=== PATIENT | male | born 1970 | race African-American/Black ===

== ENCOUNTER 2017-05-20 13:25 | Inpatient (IN) | payer OTHER ==
[2017-05-20 14:44] VITALS: BMI 20.7
--- NOTE | 2017-05-20 16:53 | HP ---
COWS - Scale Resting Pulse: 2= [place] 101-120 Sweatin= Chills/Flushing Restless Observation: 3= Extraneous Movement Pupil Size: 0= Normal to Room Light Bone or Joint Aches: 2= Severe Diffuse Aches Runny Nose/ Eye Tearin= Nasal Congestion GI Upset > 30mins: 2= Nausea/Diarrhea Tremor Observation: 2= Slight Tremor Visible Yawning Observation: 1= 1-2x During Session Anxiety or Irritability: 2=Irritable/Anxious Goose Flesh Skin: 0=Smooth Skin COWS Score: 16 Admission [facility] Chief Complaint: withdrawal sx Allergies/Adverse Reactions: Allergies Allergy/AdvReac Type Severity Reaction Status Date / Time lactose Allergy Intermediate Verified 05/20/17 15:09 History of Present Illness: 46 YEARS OLD MALE WITH LONG HISTORY OF OPIATE NICOTINE COCAINE DEPENDENCE HAS HIV AND DEPRESSION IS ADMITTED TO DETOX Exam Limitations: No Limitations - Ebola screening Have you traveled outside of the country in the last 21 days: No Have you had contact with anyone from an Ebola affected area: No Have you been sick,other than usual withdrawal symptoms: No Do you have a fever: No - Review of Systems Constitutional: Loss of Appetite, Changes in sleep, Unintentional Wgt. Loss, Unexplained wgt Loss EENT: reports: Dental Problems (MULTIPLE TEETH MISSING) Respiratory: reports: No Symptoms reported Cardiac: reports: No Symptoms Reported GI: reports: Nausea, Poor Appetite, Poor Fluid Intake, Abdominal cramping : reports: No Symptoms Reported Musculoskeletal: reports: Back Pain, Joint Pain, Muscle Pain, Neck Pain Integumentary: reports: No Symptoms Reported Neuro: reports: Tremors Endocrine: reports: No Symptoms Reported Hematology: reports: No Symptoms Reported Psychiatric: reports: Judgement Intact, Orientated x3, Anxious, Depressed Other Systems: Reviewed and Negative Patient History - Patient Medical History Hx Anemia: No Hx Asthma: No Hx Chronic Obstructive Pulmonary Disease (COPD): No Hx Cancer: No Hx Cardiac Disorders: Yes (ASD repair 1980) Hx Congestive Heart Failure: No Hx Hypertension: No Hx Hypercholesterolemia: No Hx Pacemaker: No HX Cerebrovascular Accident: No Hx Seizures: No Hx Dementia: No Hx Diabetes: No Hx Gastrointestinal Disorders: No Hx Liver Disease: No Hx Genitourinary Disorders: No Hx Sexually Transmitted Disorders: No Hx Renal Disease (ESRD): No Hx Thyroid Disease: No (2003) Hx Human Immunodeficiency Virus (HIV): Yes Hx Hepatitis C: No Hx Depression: Yes Hx Suicide Attempt: No Hx Bipolar Disorder: No Hx Schizophrenia: No - Patient Surgical History Past Surgical History: Yes Hx Neurologic Surgery: No Hx Cataract Extraction: No Hx Cardiac Surgery: Yes (asd repair-1980) Hx Lung Surgery: No Hx Breast Surgery: No Hx Breast Biopsy: No Hx Abdominal Surgery: No Hx Appendectomy: No Hx Cholecystectomy: No Hx Genitourinary Surgery: No Hx Orthopedic Surgery: No Anesthesia Reaction: No - PPD History Previous Implant?: Yes Documented Results: Negative w/proof Implanted On Prior R Admission?: Yes Date: 05/07/16 PPD to be Administered?: Yes - Smoking Cessation Smoking history: Current every day smoker Have you smoked in the past 12 months: Yes Aproximately how many cigarettes per day: 10 Cigars Per Day: 0 Hx Chewing Tobacco Use: No Initiated information on smoking cessation: Yes 'Breaking Loose' booklet given: 05/20/17 - Substance & Tx. History Hx Alcohol Use: Yes Hx Substance Use: Yes Substance Use Type: Alcohol, Cocaine, Opiates Hx Substance Use Treatment: Yes (05/10-05/10/17 [facility] - Substances Abused Heroin Route: Inhalation Frequency: Daily Amount used: 5 bags Age of first use: 30 Date of Last Use: 05/19/17 Alcohol Route: Oral Frequency: 3-6 times per week Amount used: beer(5- 22oz cans)/vodka(1/2 pint) Age of first use: 15 Date of Last Use: 05/19/17 Cocaine Route: Smoking Frequency: Daily Amount used: $100 Age of first use: 17 Date of Last Use: 05/19/17 Alprazolam (Xanax) Route: Oral Frequency: 1-2 times per week Amount used: 1 bar Age of first use: 42 Date of Last Use: 05/18/17 Family Disease History - Family Disease History Family Disease History: Other: Father (), Mother () Other Family History: "I DO NOT WANT TO TALK ABOUT THEM" Admission Physical Exam [facility] - Vital Signs Vital Signs: Vital Signs - 24 hr 05/20/17 14:18 Temperature 98.6 F Pulse Rate 103 H Respiratory 20 Rate Blood Pressure 145/87 - Physical General Appearance: Yes: Appropriately Dressed, Moderate Distress, Thin, Tremorous, Irritable, Sweating, Anxious HEENTM: Yes: Hearing grossly Normal, Normal ENT Inspection, Normocephalic, Normal Voice Respiratory: Yes: Chest Non-Tender, Lungs Clear, Normal Breath Sounds, No Respiratory Distress, No Accessory Muscle Use Neck: Yes: Supple, Trachea in good position Breast: Yes: Breasts Symetrical Cardiology: Yes: Regular Rhythm, S1, S2, Tachycardia Abdominal: Yes: Non Tender, Soft, Increased Bowel Sounds Genitourinary: Yes: Within Normal Limits Back: Yes: Normal Inspection Musculoskeletal: Yes: full range of Motion, Gait Steady, Back pain, Muscle Pain Extremities: Yes: Normal Inspection, Normal Range of Motion, Non-Tender, Tremors Neurological: Yes: Fully Oriented, Alert, Motor Strength 5/5, Normal Response, Depressed Affect Integumentary: Yes: Warm Lymphatic: Yes: Within Normal Limits - Diagnostic (1) Nicotine dependence Current Visit: Yes Status: Acute Qualifiers: Nicotine product type: cigarettes Substance use status: in withdrawal Qualified Code(s): F17.213 - Nicotine dependence, cigarettes, with withdrawal (2) Opioid dependence with withdrawal Current Visit: Yes Status: Acute (3) Cocaine dependence, uncomplicated Current Visit: Yes Status: Chronic (4) Depression (emotion) Current Visit: Yes Status: Suspected Qualifiers: Depression Type: dysthymia Qualified Code(s): F34.1 - Dysthymic disorder (5) Weight loss Current Visit: Yes Status: Acute Cleared for Admission [facility] - Detox or Rehab [facility] Level of Care: Medically Managed Detox Regimen/Protocol: Methadone [facility] Breath Alcohol Content Breath Alcohol Content: 0 Urine Drug Screen - Results Drug Screen Negative: No Urine Drug Screen Results: VENUS-Cocaine, OPI-Opiates
[2017-05-20] MEDS ORDERED: NICOTINE POLACRILEX 2 MG GUM BC PRN (16:54)
[2017-05-20] MEDS ORDERED: MAGNESIUM HYDROX 2400MG/30ML ORAL SUSPENSION 30 ML CUP PO PRN (16:54)
[2017-05-20] MEDS ORDERED: guaiFENesin/D-METHORPHAN HB 10 ML UNIT-DOSE CUPS PO PRN (16:54)
[2017-05-20] MEDS ORDERED: MENTHOL/PHENOL 1 EACH UD MM PRN (16:54)
[2017-05-20] MEDS ORDERED: LOPERAMIDE HCL 2 MG CAPSULE PO PRN (16:54)
[2017-05-20] MEDS ORDERED: MAG HYDROX/AL HYDROX/SIMETH 30 ML UNIT-DOSE CUP PO PRN (16:54)
[2017-05-20] MEDS ORDERED: METHADONE HCL 10 MG TABLET (FOR DETOX USE ONLY) PO ONE ×2 (16:54→23:00)
[2017-05-20] MEDS ORDERED: ACETAMINOPHEN 325 MG TABLET (FP) PO PRN (16:54)
[2017-05-20] MEDS ORDERED: IBUPROFEN 400 MG TABLET (FP) PO PRN (16:54)
[2017-05-20] MEDS ORDERED: MAGNESIUM CITRATE 300 ML BOTTLE PO PRN (16:54)
[2017-05-20] MEDS ORDERED: P-EPHED 60MG/TRIPROLIDI 2.5MG TABLET PO PRN (16:54)
[2017-05-20] MEDS: diazePAM 5 MG TABLET PO PRN (18:24)
[2017-05-20] MEDS: THIAMINE HCL 100 MG TABLET (FP) PO SCH (22:01)
[2017-05-20] MEDS: diphenhydrAMINE HCL 50 MG CAPSULE PO PRN (22:01)
[2017-05-21 00:31] LABS: URINE APPEARANCE SLCLOUDY; URINE BILIRUBIN NEGATIVE (NEGATIVE); URINE BLOOD NEGATIVE (NEGATIVE); URINE COLOR YELLOW; URINE GLUCOSE (UA) NEGATIVE (NEGATIVE); URINE KETONE NEGATIVE (NEGATIVE); URINE LEUK ESTERASE NEGATIVE (NEGATIVE); URINE NITRITE NEGATIVE (NEGATIVE); URINE PROTEIN NEGATIVE (NEGATIVE); URINE UROBILINOGEN NEGATIVE mg/dL (0.2-1.0)
[2017-05-21] MEDS: diazePAM 5 MG TABLET PO PRN ×4 (05:08→22:04)
--- NOTE | 2017-05-21 09:23 | EKG ---
Test Reason : Blood Pressure : / mmHG Vent. Rate : 051 BPM Atrial Rate : 051 BPM P-R Int : 164 ms QRS Dur : 086 ms QT Int : 470 ms P-R-T Axes : 062 002 048 degrees QTc Int : 433 ms SINUS BRADYCARDIA WITH PREMATURE ATRIAL COMPLEXES POSSIBLE LEFT ATRIAL ENLARGEMENT T WAVE ABNORMALITY, CONSIDER ANTERIOR ISCHEMIA ABNORMAL ECG NO PREVIOUS ECGS AVAILABLE Confirmed by CHRISTIAN SANCHEZ MD ([id number]) on 05/21/2017 9:23:06 AM Referred By: Confirmed By:CHRISTIAN SANCHEZ MD
--- NOTE | 2017-05-21 09:53 | PN ---
[facility] COWS - Scale Resting Pulse: 1= [place] 81-100 Sweatin= Chills/Flushing Restless Observation: 1= Difficult to Sit Still Pupil Size: 1= Pupils >than Normal Bone or Joint Aches: 1= Mild Discomfort Runny Nose/ Eye Tearin= Nasal Congestion GI Upset > 30mins: 2= Nausea/Diarrhea Tremor Observation of Outstretched Hands: 2= Slight Tremor Visible Yawning Observation: 1= 1-2x During Session Anxiety or Irritability: 2=Irritable/Anxious Goose Flesh Skin: 3=Piloerection COWS Score: 16 BHS Progress Note (SOAP) Subjective: nausea, sweats, interrupted sleep, anxiety, tremors Objective: 05/21/17 09:52 Vital Signs - 24 hr 05/20/17 05/20/17 05/21/17 14:18 22:08 00:34 Temperature 98.6 F 98.1 F Pulse Rate 103 H 98 H Respiratory 20 18 18 Rate Blood Pressure 145/87 120/82 05/21/17 05/21/17 05/21/17 03:56 06:23 09:47 Temperature 97 F L 97.8 F Pulse Rate 81 87 Respiratory 18 18 18 Rate Blood Pressure 131/85 120/82 Laboratory Tests 05/21/17 00:01 Urine Color Yellow Urine Appearance Slcloudy Urine pH 5.0 Urine Protein Negative Urine Glucose (UA) Negative Urine Ketones Negative Urine Blood Negative Urine Nitrite Negative Urine Bilirubin Negative Urine Urobilinogen Negative Ur Leukocyte Esterase Negative labs pending Assessment: 05/21/17 09:52 simon sx Plan: cont detox
[2017-05-21] MEDS ORDERED: METHADONE HCL 10 MG TABLET (FOR DETOX USE ONLY) PO ONE (10:00)
[2017-05-21 10:17] LABS: MCH 28.1 pg (25.7-33.7); MCHC 31.9 g/dl (32.0-35.9); MEAN CELL VOLUME 88.1 fl (80-96); MEAN PLT VOLUME 9.6 fl (7.5-11.1); PLATELET COUNT 190 K/MM3 (134-434); RDW 13.1 % (11.9-15.9); WHITE BLOOD COUNT 3.7 K/mm3 (4.0-10.0)
[2017-05-21] MEDS: PRENATAL VITAMINS W/ FOLIC ACID TABLET (FP) PO SCH (10:19)
[2017-05-21] MEDS: NICOTINE 14 MG/24 HOURS TOPICAL PATCH TD SCH (10:20)
[2017-05-21 10:45] LABS: ANION GAP 6 (8-16); CALCIUM 8.5 mg/dL (8.5-10.1); CO2 28 mmol/L (21-32); CREATININE 0.9 mg/dL (0.7-1.3); GLUCOSE,RANDOM 94 mg/dL (74-106); SGOT/AST 20 U/L (15-37); SGPT/ALT 35 U/L (12-78)
[2017-05-21 10:48] LABS: ALK PHOS 86 U/L (45-117); BILIRUBIN,TOTAL 0.4 mg/dL (0.2-1.0); TOT PROT 6.4 g/dl (6.4-8.2)
--- NOTE | 2017-05-21 12:52 | CONSULT ---
[facility] Psychiatric Consult - Data Date of interview: 05/21/17 Admission source: [facility] Identifying data: Readmission to [facility] for this 46 y/o AA male seeking detox treatment on for alcohol,cocaine and heroin dependence.Patient is ,a father of nine,homeless,unemployed and supported on [employer] funds. Substance Abuse History: Confirmed by patient in this interview. Smoking Cessation. Smoking history: Current every day smoker. Have you smoked in the past 12 months: Yes. Aproximately how many cigarettes per day: 10. Cigars Per Day: 0. Hx Chewing Tobacco Use: No. Initiated information on smoking cessation : Yes. 'Breaking Loose' booklet given: 05/20/17. - Substance & Tx. History. Hx Alcohol Use: Yes. Hx Substance Use: Yes. Substance Use Type: Alcohol, Cocaine, Opiates. Hx Substance Use Treatment: Yes (05/10-05/10/17 [facility] - Substances Abused. Heroin. Route: Inhalation. Frequency: Daily. Amount used: 5 bags. Age of first use: 30. Date of Last Use: 05/19/17. Alcohol. Route: Oral. Frequency: 3-6 times per week. Amount used: beer(5- 22oz cans)/ vodka(1/2 pint). Age of first use: 15. Date of Last Use: 05/19/17. Cocaine. Route: Smoking. Frequency: Daily. Amount used: $100. Age of first use: 17. Date of Last Use: 05/19/17. Alprazolam (Xanax). Route: Oral. Frequency: 1-2 times per week. Amount used: 1 bar. Age of first use: 42. Date of Last Use: 05/18/17 Medical History: Significant for HIV infection since 2003 (on ART medications) .Noted history of open heart surgery (atrial septal defect repair) at age [age]. Psychiatric History: Consistent history of two psychiatric hospitalizations ( [place], [place]).Diagnosed with MDD and Anxiety Disorder.No OPD care for several months.Mr Elias indicates that he does not take any medications ( from physicians).Gets xanax and ativan from street vendors.No reported history of suicide attempts. Physical/Sexual Abuse/Trauma History: Patient denies jistory of sexual abuse. Mental Status Exam - Mental Status Exam Alert and Oriented to: Time, Place, Person Cognitive Function: Grossly Intact Patient Appearance: Unkempt, Disheveled Mood: Withdrawn Affect: Mood Congruent Patient Behavior: Fatigued, Cooperative Speech Pattern: Clear Voice Loudness: Normal Thought Process: Goal Oriented Thought Disorder: Not Present Hallucinations: Denies Suicidal Ideation: Denies Homicidal Ideation: Denies Insight/Judgement: Poor Sleep: Well Appetite: Good Muscle strength/Tone: Normal Gait/Station: Normal Psychiatric Findings - Problem List ([place] 1, 2,3) (1) Opioid dependence with withdrawal Current Visit: Yes Status: Acute (2) Alcohol dependence Current Visit: Yes Status: Acute (3) Cocaine dependence, uncomplicated Current Visit: Yes Status: Acute (4) Nicotine dependence Current Visit: Yes Status: Acute Qualifiers: Nicotine product type: cigarettes Substance use status: in withdrawal Qualified Code(s): F17.213 - Nicotine dependence, cigarettes, with withdrawal (5) Substance induced mood disorder Current Visit: Yes Status: Acute (6) Weight loss Current Visit: Yes Status: Chronic (7) HIV (human immunodeficiency virus infection) Current Visit: Yes Status: Chronic - Initial Treatment Plan Initial Treatment Plan: Psychoeducation.Detoxification.Observation.
[2017-05-21] MEDS: THIAMINE HCL 100 MG TABLET (FP) PO SCH (22:04)
[2017-05-21 22:05] VITALS: PULSE 90
[2017-05-21] MEDS: diphenhydrAMINE HCL 50 MG CAPSULE PO PRN (22:05)
[2017-05-22] MEDS: diazePAM 5 MG TABLET PO PRN ×2 (03:06→10:39)
[2017-05-22] MEDS ORDERED: METHADONE HCL 5 MG TABLET (FOR DETOX USE ONLY) PO ONE (10:00)
[2017-05-22 10:31] VITALS: BP 127/86; TEMP 97.1
[2017-05-22] MEDS: PRENATAL VITAMINS W/ FOLIC ACID TABLET (FP) PO SCH (10:39)
[2017-05-22] MEDS: NICOTINE 14 MG/24 HOURS TOPICAL PATCH TD SCH (10:39)
--- NOTE | 2017-05-22 14:32 | DS ---
[facility] Detox Discharge Summary Admission Date: 05/20/17 Discharge Date: 05/22/17 - History Present History: Alcohol Dependence, Cocaine Dependence, Opioid Dependence Additional Comments: PATIENT DID NOT WISH TO STAY TO COMPLETE DETOX REGIMEN. PATIENT ADVISED TO GO IMMEDIATELY TO NEAREST ER SHOULD ANY INTOLERABLE DETOX SYMPTOMS DEVELOP AT ANY TIME. PATIENT LEFT UNIT IN STABLE MEDICAL CONDITION. Pertinent Past History: Depression, HIV, History of Cardiac Disease. - Physical Exam Results Vital Signs: Vital Signs Temperature 97.1 F L 05/22/17 10:30 Pulse Rate 90 05/22/17 10:30 Respiratory Rate 20 05/22/17 10:30 Blood Pressure 127/86 05/22/17 10:30 O2 Sat by Pulse Oximetry (%) Pertinent Admission Physical Exam Findings: WITHDRAWAL SYMPTOMS. Laboratory Tests 05/20/17 05/21/17 05/21/17 07:00 00:01 07:00 WBC 3.7 L RBC 4.64 Hgb 13.1 Hct 40.9 MCV 88.1 MCH 28.1 MCHC 31.9 L RDW 13.1 D Plt Count 190 MPV 9.6 Sodium Potassium Chloride Carbon Dioxide Anion Gap BUN Creatinine Creat Clearance w eGFR Random Glucose Calcium Total Bilirubin AST ALT Alkaline Phosphatase Total Protein Albumin Urine Color Yellow Urine Appearance Slcloudy Urine pH 5.[address] [place] 1.020 Urine Protein Negative Urine Glucose (UA) Negative Urine Ketones Negative Urine Blood Negative Urine Nitrite Negative Urine Bilirubin Negative Urine Urobilinogen Negative Ur Leukocyte Esterase Negative RPR Titer Hepatitis C Antibody 0.2 05/21/17 05/21/17 07:00 07:00 WBC RBC Hgb Hct MCV MCH MCHC RDW Plt Count MPV Sodium 144 Potassium 4.0 Chloride 110 H Carbon Dioxide 28 Anion Gap 6 L BUN 13 D Creatinine 0.9 Creat Clearance w eGFR > 60 Random Glucose 94 Calcium 8.5 Total Bilirubin 0.4 D AST 20 ALT 35 D Alkaline Phosphatase 86 D Total Protein 6.4 Albumin 3.0 L Urine Color Urine Appearance Urine pH Ur Specific [place] Urine Protein Urine Glucose (UA) Urine Ketones Urine Blood Urine Nitrite Urine Bilirubin Urine Urobilinogen Ur Leukocyte Esterase RPR Titer Nonreactive Hepatitis C Antibody LABS NOTED. - Treatment Hospital Course: Detoxed Safely - Medication Discharge Medications: Ambulatory Orders Elviteg/Manju/Emtric/Tenofo Ala [Genvoya Tablet] 1 each PO DAILY 05/20/17 - Diagnosis (1) Alcohol dependence Status: Acute Qualifiers: Substance use status: uncomplicated Qualified Code(s): F10.20 - Alcohol dependence, uncomplicated (2) Cocaine dependence, uncomplicated Status: Acute (3) Nicotine dependence Status: Chronic Qualifiers: Nicotine product type: cigarettes Substance use status: in withdrawal Qualified Code(s): F17.213 - Nicotine dependence, cigarettes, with withdrawal (4) Opioid dependence with withdrawal Status: Acute (5) Substance induced mood disorder Status: Acute (6) HIV (human immunodeficiency virus infection) Status: Chronic (7) Weight loss Status: Chronic (8) Depression (emotion) Status: Suspected Qualifiers: Depression Type: dysthymia Qualified Code(s): F34.1 - Dysthymic disorder - AMA Did Patient Leave Against Medical Advice: Yes (PATIENT DID NOT WISH TO STAY TO COMPLETE DETOX REGIMEN.)
[2017-05-23] MEDS ORDERED: METHADONE HCL 5 MG TABLET (FOR DETOX USE ONLY) PO ONE (10:00)
[2017-05-24] MEDS ORDERED: METHADONE HCL 10 MG TABLET (FOR DETOX USE ONLY) PO ONE (10:00)
[2017-05-25] MEDS ORDERED: METHADONE HCL 5 MG TABLET (FOR DETOX USE ONLY) PO ONE (06:00)
== END 2017-05-22 13:15 | disposition left against medical advice (07) | DRG 770 ==
LOC: YASAS 13:25 → Y3N 16:42
PROVIDERS: ADMIT Internal Medicine Addiction Medicine; ATTEND Internal Medicine Addiction Medicine
PROC: HZ2ZZZZ Detoxification Services for Substance Abuse Treatment (ICD-10-PCS; principal; 2017-05-20)
DX: F11.23 Opioid dependence with withdrawal (principal); F10.230 Alcohol dependence with withdrawal, uncomplicated; F14.20 Cocaine dependence, uncomplicated; F17.213 Nicotine dependence, cigarettes, with withdrawal; F19.24 Other psychoactive substance dependence with psychoactive substance-induced mood disorder; F34.1 Dysthymic disorder; Z21 Asymptomatic human immunodeficiency virus [HIV] infection status; R00.0 Tachycardia, unspecified; Z91.011 Allergy to milk products; Z87.74 Personal history of (corrected) congenital malformations of heart and circulatory system; Z87.898 Personal history of other specified conditions; Z59.0 Homelessness
CPT/HCPCS: 36415; 80053; 81003; 85027; 86593; 86803; 93005; 93010

== ENCOUNTER 2018-10-31 14:28 | Inpatient (IN) | payer OTHER ==
[2018-10-31 17:48] VITALS: BMI 20.7
--- NOTE | 2018-10-31 21:21 | HP ---
COWS - Scale Resting Pulse: 0= [place] 80 or Below Sweatin=Flushed/Facial Moisture Restless Observation: 1= Difficult to Sit Still Pupil Size: 1= Pupils >than Normal Bone or Joint Aches: 2= Severe Diffuse Aches Runny Nose/ Eye Tearin= Constantly Teary/Runny GI Upset > 30mins: 2= Nausea/Diarrhea Tremor Observation: 2= Slight Tremor Visible Yawning Observation: 1= 1-2x During Session Anxiety or Irritability: 2=Irritable/Anxious Goose Flesh Skin: 0=Smooth Skin COWS Score: 17 CIWA Score Nausea/Vomitin Muscle Tremors: 3 Anxiety: 3 Agitation: 2 Paroxysmal Sweats: 2 Orientation: 4Disoriented Place/Person Tacttile Disturbances: 1-Very Mild Itch/Numbness Auditory Disturbances: 1-Very Mild Visual Disturbances: 1-Very Mild Sensitivity Headache: 2-Mild CIWA-Ar Total Score: 22 - Admission Criteria [facility] Guidelines: Admission for Medically Managed Detox: Requires at least one of the followin. CIWA greater than 12 2. Seizures within the past 24 hours 3. Delirium tremens within the past 24 hours 4. Hallucinations within the past 24 hours 5. Acute intervention needed for co occurring medical disorder 6. Acute intervention needed for co occurring psychiatric disorder 7. Severe withdrawal that cannot be handled at a lower level of care (continued vomiting, continued diarrhea, abnormal vital signs) requiring intravenous medication and/or fluids 8. Admission ROS S - HPI Chief Complaint: DEPENDENT ON HEROIN, ETOH, COCAINE AND XANAX Allergies/Adverse Reactions: Allergies Allergy/AdvReac Type Severity Reaction Status Date / Time lactose Allergy Intermediate Verified 05/20/17 15:09 History of Present Illness: THE PT. IS REQUESTING ADMISSION TO THE DETOX UNIT AND CAME FOR H AND PE Exam Limitations: No Limitations - Ebola screening Have you traveled outside of the country in the last 21 days: No Have you had contact with anyone from an Ebola affected area: No Have you been sick,other than usual withdrawal symptoms: No - Review of Systems Constitutional: See HPI, Loss of Appetite, Malaise, Weakness, Unexplained wgt Loss EENT: reports: See HPI, Tearing, Nose Congestion Respiratory: reports: See HPI Cardiac: reports: See HPI GI: reports: See HPI, Nausea, Poor Appetite, Indigestion, Abdominal cramping : reports: See HPI Musculoskeletal: reports: See HPI, Back Pain, Joint Pain, Muscle Pain, Muscle Weakness Integumentary: reports: See HPI, Flushing, Sweating Neuro: reports: See HPI, Headache, Tremors, Weakness Endocrine: reports: See HPI Hematology: reports: See HPI Psychiatric: reports: Judgement Intact, Orientated x3, Anxious, Depressed Patient History - Patient Medical History Hx Anemia: No Hx Asthma: No Hx Chronic Obstructive Pulmonary Disease (COPD): No Hx Cancer: No Hx Cardiac Disorders: Yes (ASD repair 1980) Hx Congestive Heart Failure: No Hx Hypertension: No Hx Hypercholesterolemia: No Hx Pacemaker: No HX Cerebrovascular Accident: No Hx Seizures: No Hx Dementia: No Hx Diabetes: No Hx Gastrointestinal Disorders: No Hx Liver Disease: No Hx Genitourinary Disorders: No Hx Sexually Transmitted Disorders: No Hx Renal Disease (ESRD): No Hx Thyroid Disease: No (2003) Hx Human Immunodeficiency Virus (HIV): Yes Hx Hepatitis C: No Hx Depression: Yes (AND ANXIETY) Hx Suicide Attempt: No Hx Bipolar Disorder: No Hx Schizophrenia: No - Patient Surgical History Past Surgical History: Yes Hx Neurologic Surgery: No Hx Cataract Extraction: No Hx Cardiac Surgery: Yes (asd repair-1980) Hx Lung Surgery: No Hx Breast Surgery: No Hx Breast Biopsy: No Hx Abdominal Surgery: No Hx Appendectomy: No Hx Cholecystectomy: No Hx Genitourinary Surgery: No Hx Section: No Hx Orthopedic Surgery: No Anesthesia Reaction: No - PPD History Date: 05/22/17 - Smoking Cessation Smoking history: Current every day smoker Have you smoked in the past 12 months: Yes Aproximately how many cigarettes per day: 10 Cigars Per Day: 0 Hx Chewing Tobacco Use: No Initiated information on smoking cessation: Yes 'Breaking Loose' booklet given: 10/31/18 - Substance & Tx. History Hx Alcohol Use: Yes Hx Substance Use: Yes Substance Use Type: Alcohol, Cocaine, Heroin, Tranquilizers Hx Substance Use Treatment: Yes - Substances Abused Heroin Route: Inhalation Frequency: Daily Amount used: 10/D Age of first use: 21 Date of Last Use: 10/30/18 Alcohol Route: Oral Frequency: Daily Amount used: BEER 2X6 PKS/D Age of first use: 15 Date of Last Use: 10/30/18 Cocaine Route: Smoking Frequency: Daily Amount used: $100/D Age of first use: 15 Date of Last Use: 10/30/18 Alprazolam (Xanax) Route: Oral Frequency: Daily Amount used: 2 MGS./D Age of first use: 30 Date of Last Use: 10/30/18 Family Disease History - Family Disease History Family Disease History: Other: Father (), Mother () Admission Physical Exam [facility] - Vital Signs Vital Signs: Vital Signs - 24 hr 10/31/18 17:47 Temperature 97.6 F Pulse Rate 80 Respiratory 18 Rate Blood Pressure 142/87 - Physical General Appearance: Yes: No Apparent Distress, Appropriately Dressed, Thin, Tremorous, Sweating, Anxious HEENTM: Yes: Hearing grossly Normal, Normocephalic, Normal Voice, [place], Pharynx Normal Respiratory: Yes: Chest Non-Tender, Lungs Clear, Normal Breath Sounds, No Respiratory Distress, No Accessory Muscle Use Neck: Yes: No masses,lesions,Nodules, Supple, Trachea in good position Breast: Yes: Breast Exam Deferred, Axillae without masses, No masses Cardiology: Yes: Regular Rhythm, Regular Rate, S1, S2 Abdominal: Yes: Normal Bowel Sounds, Non Tender, Flat Back: Yes: Normal Inspection Musculoskeletal: Yes: Back pain, Muscle Pain, Muscle weakness Extremities: Yes: Normal Capillary Refill, Normal Range of Motion, Non-Tender, Tremors Neurological: Yes: Fully Oriented, Alert, Motor Strength 5/5, Normal Response Integumentary: Yes: Normal Color, Warm, Moist Lymphatic: Yes: Within Normal Limits - Diagnostic (1) Anxiety and depression Current Visit: Yes Status: Chronic (2) Benzodiazepine dependence Current Visit: Yes Status: Chronic (3) Alcohol dependence with uncomplicated withdrawal Current Visit: No Status: Chronic (4) Cocaine dependence, uncomplicated Current Visit: No Status: Chronic (5) Opioid dependence with withdrawal Current Visit: No Status: Chronic (6) HIV (human immunodeficiency virus infection) Current Visit: No Status: Chronic Qualifiers: HIV symptom status: unspecified Qualified Code(s): B20 - Human immunodeficiency virus [HIV] disease (7) Nicotine dependence Current Visit: No Status: Chronic Qualifiers: Nicotine product type: cigarettes Substance use status: uncomplicated Qualified Code(s): F17.210 - Nicotine dependence, cigarettes, uncomplicated (8) Weight loss Current Visit: No Status: Chronic Cleared for Admission [facility] - Detox or Rehab [facility] Level of Care: Medically Managed Detox Regimen/Protocol: Methadone/Valium [facility] Breath Alcohol Content Breath Alcohol Content: 0 Urine Drug Screen - Results Drug Screen Negative: No Urine Drug Screen Results: VENUS-Cocaine, OPI-Opiates, MTD-Methadone, FEN-Fentanyl Inpatient Rehab Admission - Rehab Decision to Admit Inpatient rehab admission?: No
[2018-10-31] MEDS ORDERED: LOPERAMIDE HCL 2 MG CAPSULE PO PRN (21:27)
[2018-10-31] MEDS ORDERED: MAGNESIUM HYDROX 2400MG/30ML ORAL SUSPENSION 30 ML CUP PO PRN (21:27)
[2018-10-31] MEDS ORDERED: diazePAM 5 MG TABLET PO ONE (21:27)
[2018-10-31] MEDS ORDERED: MAGNESIUM CITRATE 300 ML BOTTLE PO PRN (21:27)
[2018-10-31] MEDS ORDERED: P-EPHED 60MG/TRIPROLIDI 2.5MG TABLET PO PRN (21:27)
[2018-10-31] MEDS ORDERED: MAG HYDROX/AL HYDROX/SIMETH 30 ML UNIT-DOSE CUP PO PRN (21:27)
[2018-10-31] MEDS ORDERED: METHADONE HCL 10 MG TABLET (FOR DETOX USE ONLY) PO ONE ×2 (21:27→23:00)
[2018-10-31] MEDS ORDERED: IBUPROFEN 400 MG TABLET (FP) PO PRN (21:27)
[2018-10-31] MEDS ORDERED: ACETAMINOPHEN 325 MG TABLET (FP) PO PRN (21:27)
[2018-10-31] MEDS ORDERED: MENTHOL/PHENOL 1 EACH UD MM PRN (21:27)
[2018-10-31] MEDS ORDERED: guaiFENesin/D-METHORPHAN HB 10 ML UNIT-DOSE CUPS PO PRN (21:27)
[2018-10-31] MEDS ORDERED: MELATONIN 5 MG TABLETS PO PRN (22:00)
[2018-11-01] MEDS: diazePAM 5 MG TABLET PO PRN ×2 (02:26→08:49)
[2018-11-01] MEDS: diazePAM 5 MG TABLET PO SCH ×4 (03:34→22:43)
[2018-11-01] MEDS: THIAMINE HCL 100 MG TABLET (FP) PO SCH ×2 (03:34→22:43)
[2018-11-01] MEDS: PRENATAL VITAMINS W/ FOLIC ACID TABLET (FP) PO SCH (09:28)
[2018-11-01] MEDS ORDERED: METHADONE HCL 10 MG TABLET (FOR DETOX USE ONLY) PO SCH (10:00)
--- NOTE | 2018-11-01 10:58 | PN ---
[facility] CIWA - CIWA Score Nausea/Vomitin-Mild Nausea/No Vomiting Muscle Tremors: 4-Moderate,w/Arms Extend Anxiety: 4-Mod. Anxious/Guarded Agitation: 4-Moderately Restless Paroxysmal Sweats: 1-Minimal Palms Moist Orientation: 1-Uncertain about Date Tacttile Disturbances: 1-Very Mild Itch/Numbness Auditory Disturbances: 0-None Visual Disturbances: 0-None Headache: 1-Very Mild CIWA-Ar Total Score: 17 [facility] COWS - Scale Resting Pulse: 1= [place] 81-100 Sweatin= Chills/Flushing Restless Observation: 0= Sits Still Pupil Size: 0= Normal to Room Light Bone or Joint Aches: 2= Severe Diffuse Aches Runny Nose/ Eye Tearin= Nasal Congestion GI Upset > 30mins: 2= Nausea/Diarrhea Tremor Observation of Outstretched Hands: 2= Slight Tremor Visible Yawning Observation: 1= 1-2x During Session Anxiety or Irritability: 2=Irritable/Anxious Goose Flesh Skin: 0=Smooth Skin COWS Score: 12 S Progress Note (SOAP) Subjective: body aches tremor anxiety sweating back pain Objective: 11/01/18 10:58 Vital Signs Temperature 96.7 F L 11/01/18 09:24 Pulse Rate 86 11/01/18 09:24 Respiratory Rate 18 11/01/18 09:24 Blood Pressure 122/72 11/01/18 09:24 O2 Sat by Pulse Oximetry (%) 11/01/18 10:58 lab pending Assessment: 11/01/18 10:58 withdrawal sx Plan: continue detox
[2018-11-01 11:05] LABS: HEMATOCRIT 37.4 % (35.4-49); MCH 27.8 pg (25.7-33.7); MEAN CELL VOLUME 86.9 fl (80-96); MEAN PLT VOLUME 8.8 fl (7.5-11.1); PLATELET COUNT 198 K/MM3 (134-434); WHITE BLOOD COUNT 2.5 K/mm3 (4.0-10.0)
[2018-11-01 11:29] LABS: ALK PHOS 65 U/L (45-117); ANION GAP 6 MMOL/L (8-16); BILIRUBIN,TOTAL 0.3 mg/dL (0.2-1); BLOOD UREA NITROGEN 13 mg/dL (7-18); CALCIUM 8.3 mg/dL (8.5-10.1); CHLORIDE 108 mmol/L (98-107); CO2 27 mmol/L (21-32); GLUCOSE,RANDOM 109 mg/dL (74-106); POTASSIUM 3.7 mmol/L (3.5-5.1); SGOT/AST 26 U/L (15-37); SGPT/ALT 29 U/L (13-61); SODIUM 141 mmol/L (136-145)
--- NOTE | 2018-11-01 11:52 | CONSULT ---
[facility] Psychiatric Consult - Data Date of interview: 11/01/18 Admission source: [facility] Identifying data: This is one of multiple admissions to [facility] for this 48 y/ o AA male self-referred for detoxification (alcohol, cocaine, heroin, xanax). Examined on . Patient is found to be a hostile and marginally cooperative historian. Declines to provide demographic information. Records indicate that the patient is , a father of nine, homeless, unemployed and supported on [employer] funds (in this interview, Mr Elias states that he is domiciled, no children, supported on food stamps). Substance Abuse History: Patient refuses to comment on his substance abuse history. Therefore, history is taken from available report collected at [facility] on admission : Smoking history: Current every day smoker. Have you smoked in the past 12 months: Yes. Aproximately how many cigarettes per day: 10. Cigars Per Day: 0. Hx Chewing Tobacco Use: No. Initiated information on smoking cessation : Yes. 'Breaking Loose' booklet given: 10/31/18. - Substance & Tx. History. Hx Alcohol Use: Yes. Hx Substance Use: Yes. Substance Use Type: Alcohol, Cocaine, Heroin, Tranquilizers. Hx Substance Use Treatment: Yes. - Substances Abused. Heroin. Route: Inhalation. Frequency: Daily. Amount used: 10/D. Age of first use: 21. Date of Last Use: 10/30/18. Alcohol. Route: Oral. Frequency: Daily. Amount used: BEER 2X6 PKS/D. Age of first use: 15. Date of Last Use: 10/30/18. Cocaine. Route: Smoking. Frequency: Daily. Amount used: $100/D. Age of first use: 15. Date of Last Use: 10/30/18. Alprazolam (Xanax). Route: Oral. Frequency: Daily. Amount used: 2 MGS./D. Age of first use: 30. Date of Last Use: 10/30/18 Medical History: History taken from previous charts (patient is already known to this expert medical writer). HIV infection since 2003 (on ART medications) and a history of open heart surgery (atrial septal defect repair at age [age]). Psychiatric History: Records yield evidence of a history of two psychiatric hospitalizations (in [place], [place]). As per my note of 05/21/17 : " patient is diagnosed with MDD and Anxiety Disorder.No OPD care for several months.Mr Elias indicates that he does not take any medications (from physicians) . Gets xanax and ativan from street vendors. No reported history of suicide attempts ". Mr Elias refused to discuss his psychiatric history in this encounter. Refuses to accept any medications other than drugs necessary for detoxification purposes. Physical/Sexual Abuse/Trauma History: Not discussed. Additional Comment: Urine Drug Screen Results: VENUS-Cocaine, OPI-Opiates, MTD- Methadone, FEN-Fentanyl. Noted. Mental Status Exam - Mental Status Exam Alert and Oriented to: Time (patient provided correct responses ; with anger ), Place, Person Cognitive Function: Grossly Intact Patient Appearance: Unkempt, Disheveled, Bizarre Mood: Angry, Hostile, Withdrawn, Irritable Affect: Mood Congruent Patient Behavior: Fatigued, Uncooperative, Guarded Speech Pattern: Inappropriate (short, monosyllabic answers) Voice Loudness: Normal Thought Process: Disorganized Thought Disorder: Bizarre Hallucinations: Denies Suicidal Ideation: Denies Homicidal Ideation: Denies Insight/Judgement: Poor Sleep: Fair Appetite: Good (patient states that he ate his breakfast ) Gait/Station: Other (not observed ; patient stayed in bed for the interview) Psychiatric Findings - Problem List ([place] 1, 2,3) (1) Alcohol dependence with uncomplicated withdrawal Current Visit: Yes Status: Acute (2) Opioid dependence with withdrawal Current Visit: Yes Status: Acute (3) Sedative, hypnotic or anxiolytic dependence with withdrawal, uncomplicated Current Visit: Yes Status: Chronic (4) Cocaine dependence Current Visit: Yes Status: Chronic Qualifiers: Substance use status: uncomplicated Qualified Code(s): F14.20 - Cocaine dependence, uncomplicated (5) Nicotine dependence Current Visit: Yes Status: Chronic Qualifiers: Nicotine product type: cigarettes Substance use status: uncomplicated Qualified Code(s): F17.210 - Nicotine dependence, cigarettes, uncomplicated (6) Substance induced mood disorder Current Visit: Yes Status: Chronic (7) Non-compliance Current Visit: Yes Status: Chronic - Initial Treatment Plan Initial Treatment Plan: Psychoeducation will be initiated, at some point, in hospital course (when patient becomes cooperative). Sleep hygiene. Detoxification in progress. Support. Will encourage the patient to join in AA/ NA meetings. Observation.
[2018-11-01] MEDS: PATIENT'S OWN MEDICATION (NON-FORMULARY) (Elviteg/Cob/Emtri/Tenof Alafen 1 EACH) PO SCH (14:01)
[2018-11-02] MEDS: diazePAM 5 MG TABLET PO PRN (08:24)
[2018-11-02] MEDS: METHADONE HCL 5 MG TABLET (FOR DETOX USE ONLY) PO SCH (10:13)
[2018-11-02] MEDS: diazePAM 5 MG TABLET PO SCH ×2 (10:13→22:38)
[2018-11-02] MEDS: PATIENT'S OWN MEDICATION (NON-FORMULARY) (Elviteg/Cob/Emtri/Tenof Alafen 1 EACH) PO SCH (10:14)
[2018-11-02] MEDS: PRENATAL VITAMINS W/ FOLIC ACID TABLET (FP) PO SCH (10:14)
--- NOTE | 2018-11-02 14:44 | PN ---
[facility] CIWA - CIWA Score Nausea/Vomitin-Mild Nausea/No Vomiting Muscle Tremors: 3 Anxiety: 2 Agitation: 2 Paroxysmal Sweats: 1-Minimal Palms Moist Orientation: 1-Uncertain about Date Tacttile Disturbances: 0-None Auditory Disturbances: 0-None Visual Disturbances: 0-None Headache: 2-Mild CIWA-Ar Total Score: 12 BHS COWS - Scale Resting Pulse: 0= [place] 80 or Below Sweatin= Chills/Flushing Restless Observation: 0= Sits Still Pupil Size: 0= Normal to Room Light Bone or Joint Aches: 2= Severe Diffuse Aches Runny Nose/ Eye Tearin= Nasal Congestion GI Upset > 30mins: 2= Nausea/Diarrhea Tremor Observation of Outstretched Hands: 2= Slight Tremor Visible Yawning Observation: 1= 1-2x During Session Anxiety or Irritability: 1=Feels Anxious/Irritable Goose Flesh Skin: 0=Smooth Skin COWS Score: 10 [facility] Progress Note (SOAP) Subjective: body ache anxiety tremor joints pain sweating Objective: 11/02/18 14:45 Vital Signs Temperature 96.9 F L 11/02/18 13:35 Pulse Rate 68 11/02/18 13:35 Respiratory Rate 18 11/02/18 13:35 Blood Pressure 112/68 11/02/18 13:35 O2 Sat by Pulse Oximetry (%) Laboratory Last Values WBC 2.5 K/mm3 (4.0-10.0) L 11/01/18 08:10 RBC 4.30 M/mm3 (4.00-5.60) 11/01/18 08:10 Hgb 12.0 GM/dL (11.7-16.9) 11/01/18 08:10 Hct 37.4 % (35.4-49) 11/01/18 08:10 MCV 86.9 fl (80-96) 11/01/18 08:10 MCH 27.8 pg (25.7-33.7) 11/01/18 08:10 MCHC 32.0 g/dl (32.0-35.9) 11/01/18 08:10 RDW 15.0 % (11.9-15.9) D 11/01/18 08:10 Plt Count 198 K/MM3 (134-434) 11/01/18 08:10 MPV 8.8 fl (7.5-11.1) 11/01/18 08:10 Sodium 141 mmol/L (136-145) 11/01/18 08:10 Potassium 3.7 mmol/L (3.5-5.1) 11/01/18 08:10 Chloride 108 mmol/L (98-107) H 11/01/18 08:10 Carbon Dioxide 27 mmol/L (21-32) 11/01/18 08:10 Anion Gap 6 MMOL/L (8-16) L 11/01/18 08:10 BUN 13 mg/dL (7-18) 11/01/18 08:10 Creatinine 1.0 mg/dL (0.55-1.3) 11/01/18 08:10 Creat Clearance w eGFR > 60 (>60) 11/01/18 08:10 Random Glucose 109 mg/dL (74-106) H 11/01/18 08:10 Calcium 8.3 mg/dL (8.5-10.1) L 11/01/18 08:10 Total Bilirubin 0.3 mg/dL (0.2-1) 11/01/18 08:10 AST 26 U/L (15-37) 11/01/18 08:10 ALT 29 U/L (13-61) 11/01/18 08:10 Alkaline Phosphatase 65 U/L (45-117) 11/01/18 08:10 Total Protein 7.0 g/dl (6.4-8.2) 11/01/18 08:10 Albumin 3.0 g/dl (3.4-5.0) L 11/01/18 08:10 RPR Titer Nonreactive (NONREACTIVE) 11/01/18 08:10 lab noted 11/02/18 14:47 HIV Assessment: 11/02/18 14:47 withdrawal sx Plan: continue detox
[2018-11-02] MEDS: THIAMINE HCL 100 MG TABLET (FP) PO SCH (22:38)
[2018-11-03 09:48] VITALS: BP 115/77; PULSE 76; TEMP 98.4
[2018-11-03] MEDS: diazePAM 5 MG TABLET PO SCH (10:42)
[2018-11-03] MEDS: PRENATAL VITAMINS W/ FOLIC ACID TABLET (FP) PO SCH (10:42)
[2018-11-03] MEDS: METHADONE HCL 5 MG TABLET (FOR DETOX USE ONLY) PO SCH (10:42)
[2018-11-03] MEDS: PATIENT'S OWN MEDICATION (NON-FORMULARY) (Elviteg/Cob/Emtri/Tenof Alafen 1 EACH) PO SCH (10:43)
--- NOTE | 2018-11-03 11:11 | PN ---
S CIWA - CIWA Score Nausea/Vomitin-Mild Nausea/No Vomiting Muscle Tremors: 3 Anxiety: 1-Mildly Anxious Agitation: 2 Paroxysmal Sweats: 1-Minimal Palms Moist Orientation: 0-Oriented Tacttile Disturbances: 0-None Auditory Disturbances: 0-None Visual Disturbances: 0-None Headache: 2-Mild CIWA-Ar Total Score: 10 S COWS - Scale Resting Pulse: 0= [place] 80 or Below Sweatin= Chills/Flushing Restless Observation: 0= Sits Still Pupil Size: 0= Normal to Room Light Bone or Joint Aches: 1= Mild Discomfort Runny Nose/ Eye Tearin= Nasal Congestion GI Upset > 30mins: 2= Nausea/Diarrhea Tremor Observation of Outstretched Hands: 1= Tremor Hamel, Not Seen Yawning Observation: 0= None Anxiety or Irritability: 0= None Goose Flesh Skin: 0=Smooth Skin COWS Score: 6 S Progress Note (SOAP) Subjective: mild anxiety less tremor little body ache social with peers in day room Objective: 11/03/18 11:16 Vital Signs Temperature 98.4 F 11/03/18 09:46 Pulse Rate 76 11/03/18 09:46 Respiratory Rate 18 11/03/18 09:46 Blood Pressure 115/77 11/03/18 09:46 O2 Sat by Pulse Oximetry (%) Laboratory Last Values WBC 2.5 K/mm3 (4.0-10.0) L 11/01/18 08:10 RBC 4.30 M/mm3 (4.00-5.60) 11/01/18 08:10 Hgb 12.0 GM/dL (11.7-16.9) 11/01/18 08:10 Hct 37.4 % (35.4-49) 11/01/18 08:10 MCV 86.9 fl (80-96) 11/01/18 08:10 MCH 27.8 pg (25.7-33.7) 11/01/18 08:10 MCHC 32.0 g/dl (32.0-35.9) 11/01/18 08:10 RDW 15.0 % (11.9-15.9) D 11/01/18 08:10 Plt Count 198 K/MM3 (134-434) 11/01/18 08:10 MPV 8.8 fl (7.5-11.1) 11/01/18 08:10 Sodium 141 mmol/L (136-145) 11/01/18 08:10 Potassium 3.7 mmol/L (3.5-5.1) 11/01/18 08:10 Chloride 108 mmol/L (98-107) H 11/01/18 08:10 Carbon Dioxide 27 mmol/L (21-32) 11/01/18 08:10 Anion Gap 6 MMOL/L (8-16) L 11/01/18 08:10 BUN 13 mg/dL (7-18) 11/01/18 08:10 Creatinine 1.0 mg/dL (0.55-1.3) 11/01/18 08:10 Creat Clearance w eGFR > 60 (>60) 11/01/18 08:10 Random Glucose 109 mg/dL (74-106) H 11/01/18 08:10 Calcium 8.3 mg/dL (8.5-10.1) L 11/01/18 08:10 Total Bilirubin 0.3 mg/dL (0.2-1) 11/01/18 08:10 AST 26 U/L (15-37) 11/01/18 08:10 ALT 29 U/L (13-61) 11/01/18 08:10 Alkaline Phosphatase 65 U/L (45-117) 11/01/18 08:10 Total Protein 7.0 g/dl (6.4-8.2) 11/01/18 08:10 Albumin 3.0 g/dl (3.4-5.0) L 11/01/18 08:10 RPR Titer Nonreactive (NONREACTIVE) 11/01/18 08:10 lab noted patient reported that he has long history of low wbc patient agrees to return to infectious disease provider for follow up as well as product picker narcan kit Assessment: 11/03/18 11:18 withdrawal sx Plan: continue detox
--- NOTE | 2018-11-03 13:44 | DS ---
[facility] Detox Discharge Summary Admission Date: 10/31/18 Discharge Date: 11/03/18 - History Present History: Alcohol Dependence, Opioid Dependence, Sedative Dependence Additional Comments: 48 years old male admitted on 10/31/18 for alcohol benzo and opiate withdrawal stabilization insists to leave the detox unit that [facility] may not good enough for him patient preferred find a better rehab himself - Physical Exam Results Vital Signs: Vital Signs Temperature 98.4 F 11/03/18 09:46 Pulse Rate 76 11/03/18 09:46 Respiratory Rate 18 11/03/18 09:46 Blood Pressure 115/77 11/03/18 09:46 O2 Sat by Pulse Oximetry (%) Pertinent Admission Physical Exam Findings: alcohol benzo and opiate withdrawal sx Laboratory Last Values WBC 2.5 K/mm3 (4.0-10.0) L 11/01/18 08:10 RBC 4.30 M/mm3 (4.00-5.60) 11/01/18 08:10 Hgb 12.0 GM/dL (11.7-16.9) 11/01/18 08:10 Hct 37.4 % (35.4-49) 11/01/18 08:10 MCV 86.9 fl (80-96) 11/01/18 08:10 MCH 27.8 pg (25.7-33.7) 11/01/18 08:10 MCHC 32.0 g/dl (32.0-35.9) 11/01/18 08:10 RDW 15.0 % (11.9-15.9) D 11/01/18 08:10 Plt Count 198 K/MM3 (134-434) 11/01/18 08:10 MPV 8.8 fl (7.5-11.1) 11/01/18 08:10 Sodium 141 mmol/L (136-145) 11/01/18 08:10 Potassium 3.7 mmol/L (3.5-5.1) 11/01/18 08:10 Chloride 108 mmol/L (98-107) H 11/01/18 08:10 Carbon Dioxide 27 mmol/L (21-32) 11/01/18 08:10 Anion Gap 6 MMOL/L (8-16) L 11/01/18 08:10 BUN 13 mg/dL (7-18) 11/01/18 08:10 Creatinine 1.0 mg/dL (0.55-1.3) 11/01/18 08:10 Creat Clearance w eGFR > 60 (>60) 11/01/18 08:10 Random Glucose 109 mg/dL (74-106) H 11/01/18 08:10 Calcium 8.3 mg/dL (8.5-10.1) L 11/01/18 08:10 Total Bilirubin 0.3 mg/dL (0.2-1) 11/01/18 08:10 AST 26 U/L (15-37) 11/01/18 08:10 ALT 29 U/L (13-61) 11/01/18 08:10 Alkaline Phosphatase 65 U/L (45-117) 11/01/18 08:10 Total Protein 7.0 g/dl (6.4-8.2) 11/01/18 08:10 Albumin 3.0 g/dl (3.4-5.0) L 11/01/18 08:10 RPR Titer Nonreactive (NONREACTIVE) 11/01/18 08:10 lab noted patient agrees to return to infectious disease specialist follow up low wbc - Treatment Hospital Course: Detox Protocol Followed, Responded well Patient has Accepted a Rehab Referral to: [facility] - Medication Discharge Medications: Ambulatory Orders Elviteg/Cob/Emtri/Tenof Alafen [Genvoya Tablet] 1 each PO DAILY 05/20/17 Naloxone HCl [Narcan] 4 mg NS ASDIR PRN 11/01/18 - Diagnosis (1) Nicotine dependence Current Visit: Yes Status: Acute Qualifiers: Nicotine product type: cigarettes Substance use status: in withdrawal Qualified Code(s): F17.213 - Nicotine dependence, cigarettes, with withdrawal (2) Alcohol dependence with uncomplicated withdrawal Current Visit: Yes Status: Acute (3) Sedative, hypnotic or anxiolytic dependence with withdrawal, uncomplicated Current Visit: Yes Status: Acute (4) Opioid dependence with withdrawal Current Visit: Yes Status: Acute (5) HIV (human immunodeficiency virus infection) Current Visit: Yes Status: Chronic Qualifiers: HIV symptom status: unspecified Qualified Code(s): B20 - Human immunodeficiency virus [HIV] disease (6) Substance induced mood disorder Current Visit: Yes Status: Suspected (7) Weight loss Current Visit: Yes Status: Acute - AMA Did Patient Leave Against Medical Advice: Yes
[2018-11-04] MEDS ORDERED: diazePAM 5 MG TABLET PO SCH (10:00)
[2018-11-04] MEDS ORDERED: METHADONE HCL 10 MG TABLET (FOR DETOX USE ONLY) PO SCH (10:00)
[2018-11-05] MEDS ORDERED: METHADONE HCL 5 MG TABLET (FOR DETOX USE ONLY) PO SCH (06:00)
== END 2018-11-03 12:27 | disposition left against medical advice (07) | DRG 770 ==
LOC: YASAS 14:28 → Y3N 21:45
PROVIDERS: ADMIT Surgery; ATTEND Surgery
PROC: HZ2ZZZZ Detoxification Services for Substance Abuse Treatment (ICD-10-PCS; principal; 2018-10-31)
DX: F11.23 Opioid dependence with withdrawal (principal); F10.230 Alcohol dependence with withdrawal, uncomplicated; F13.230 Sedative, hypnotic or anxiolytic dependence with withdrawal, uncomplicated; F14.20 Cocaine dependence, uncomplicated; F17.213 Nicotine dependence, cigarettes, with withdrawal; F19.24 Other psychoactive substance dependence with psychoactive substance-induced mood disorder; F41.9 Anxiety disorder, unspecified; F32.9 Major depressive disorder, single episode, unspecified; Z21 Asymptomatic human immunodeficiency virus [HIV] infection status; Z87.74 Personal history of (corrected) congenital malformations of heart and circulatory system; Z91.19 Patient's noncompliance with other medical treatment and regimen; Z59.0 Homelessness
CPT/HCPCS: 36415; 80053; 85027; 86593

== ENCOUNTER 2020-04-23 11:47 | Inpatient (IN) | payer OTHER ==
--- NOTE | 2020-04-23 12:40 | PDOC ---
History of Present Illness - General Chief Complaint: Abnormal Lab Results (Outside) Stated Complaint: ABNORMAL LABS History Source: Patient Exam Limitations: Intoxication - History of Present Illness Initial Comments: 04/23/20 13:29 HPI: This is a 49 y/o male with a PMH of HTN, HIV non compliant with medications, opiate use, heroin use, and alcohol abuse sent over from [facility] because a murmur was heard on physical exam. The patient was uncooperative to questioning. He reports that the last time he used was yesterday. He denies trauma, and states that he takes the heroin and cocain by nose. Also takes Suboxone, last use 2 days ago. Denies ever having DT's or a seizure when withdrawing. He denies any chest pain, SOB, abdominal pain, N/V. He admits to diarrhea. He also reports that he has been told he has a murmur his entire life. ROS: GENERAL/CONSTITUTIONAL: No fever/chills. No weakness. HEAD, EYES, EARS, NOSE AND THROAT: No change in vision. No ear pain or discharge. No sore throat. CARDIOVASCULAR: No chest pain or shortness of breath. RESPIRATORY: No cough, wheezing, or hemoptysis. GASTROINTESTINAL: No nausea, vomiting, Yes diarrhea No constipation. GENITOURINARY: No dysuria, frequency, or change in urination. MUSCULOSKELETAL: No joint or muscle swelling or pain. No neck or back pain. NEUROLOGIC: No headache, loss of consciousness, or change in strength/sensation. PMH: HIV, cocaine, heroin, and alcohol abuse. HTN PSx: ASD repair Social Hx: Admits etoh, cocaine, heroin, alcohol, tobacco Meds: Suboxone Allergies: Denied PE: GENERAL: Awake, alert, and oriented x3. He was laying in his bed sleeping. Arousable to voice. HEAD: No signs of trauma EYES: PERRLA, EOMI ENT: TM visualized, no blood NECK: Normal ROM, supple, no lymphadenopathy, JVD, or masses LUNGS: Breath sounds equal, clear to auscultation bilaterally. No wheezes, and no crackles HEART: Regular rate and rhythm, normal S1 and S2. Grade 1 systolic murmur. ABDOMEN: Soft, nontender, normoactive bowel sounds. No guarding, no rebound. No masses EXTREMITIES: Normal range of motion, no edema. No clubbing or cyanosis. No cords, erythema, or tenderness NEUROLOGICAL: Cranial nerves II through XII grossly intact. Normal speech, normal gait. No focal neurological deficits. SKIN: Warm, Dry, normal turgor, no rashes or lesions noted. No track burton noted. MDM: This is a 49 y/o male with a PMH of HIV non compliant with medications, opiate use, heroin use, and alcohol abuse sent over from [facility] because a murmur was heard on physical exam. Patient with [facility] Reports murmur present his entire life, no chest pain, SOB, palpitations Vital Signs Temp Pulse Resp BP Pulse Ox 97.9 F 71 15 136/74 98 04/23/20 11:55 04/23/20 11:55 04/23/20 11:55 04/23/20 11:55 04/23/20 11:55 Vitals stable, afebrile - EKG 04/23/20 13:39 EKG with new T wave inversions in V4 and V5 - Cardiac profile - CBC - CMP 04/23/20 16:42 - Patient still without and chest pain, SOB CMP Sodium 143 mmol/L (136-145) 04/23/20 15:00 Potassium 4.1 mmol/L (3.5-5.1) 04/23/20 15:00 Chloride 106 mmol/L (98-107) 04/23/20 15:00 Carbon Dioxide 32 mmol/L (21-32) 04/23/20 15:00 Anion Gap 5 MMOL/L (8-16) L 04/23/20 15:00 BUN 11.7 mg/dL (7-18) 04/23/20 15:00 Creatinine 1.0 mg/dL (0.55-1.3) 04/23/20 15:00 Est GFR (CKD-EPI)AfAm 103.42 04/23/20 15:00 Est GFR (CKD-EPI)NonAf 89.23 04/23/20 15:00 Random Glucose 77 mg/dL (74-106) 04/23/20 15:00 Calcium 8.6 mg/dL (8.5-10.1) 04/23/20 15:00 Total Bilirubin 0.3 mg/dL (0.2-1) 04/23/20 15:00 AST 21 U/L (15-37) 04/23/20 15:00 ALT 18 U/L (13-61) 04/23/20 15:00 Alkaline Phosphatase 66 U/L (45-117) 04/23/20 15:00 Creatine Kinase 190 U/L (26-308) 04/23/20 15:00 Troponin I < 0.02 ng/ml (0.00-0.05) 04/23/20 15:00 Total Protein 7.0 g/dl (6.4-8.2) 04/23/20 15:00 Albumin 3.1 g/dl (3.4-5.0) L 04/23/20 15:00 Troponin negative. Will repeat at 3hrs CBC WBC 2.7 K/mm3 (4.0-10.0) L 04/23/20 15:00 RBC 4.10 M/mm3 (4.00-5.60) 04/23/20 15:00 Hgb 11.4 GM/dL (11.7-16.9) L 04/23/20 15:00 Hct 36.4 % (35.4-49) 04/23/20 15:00 MCV 88.8 fl (80-96) 04/23/20 15:00 MCH 27.8 pg (25.7-33.7) 04/23/20 15:00 MCHC 31.3 g/dl (32.0-35.9) L 04/23/20 15:00 RDW 13.9 % (11.9-15.9) 04/23/20 15:00 Plt Count 183 K/MM3 (134-434) 04/23/20 15:00 MPV 8.7 fl (7.5-11.1) 04/23/20 15:00 Absolute Neuts (auto) 1.1 K/mm3 (1.5-8.0) L 04/23/20 15:00 Neutrophils % 42.0 % (42.8-82.8) L 04/23/20 15:00 Lymphocytes % 26.7 % (8-40) 04/23/20 15:00 Monocytes % 16.3 % (3.8-10.2) H 04/23/20 15:00 Eosinophils % 14.3 % (0-4.5) H 04/23/20 15:00 Basophils % 0.7 % (0-2.0) 04/23/20 15:00 Nucleated RBC % 0 % (0-0) 04/23/20 15:00 No leukocytosis. Leukopenia likely 2/2 untreated HIV 04/23/20 18:35 Patients second troponin negative, will repeat EKG and if no changes will return to [facility] 04/23/20 19:03 Repeat EKG with dynamic changes, patient will be admitted. Previously had T wave inversions in V4 and V5. Now T waves are upright. 04/23/20 19:20 Microblogged symphony - PAtient accepted - Dr. Jurado Past History - Medical History Allergies/Adverse Reactions: Allergies Allergy/AdvReac Type Severity Reaction Status Date / Time lactose Allergy Intermediate Verified 04/23/20 09:58 Home Medications: Ambulatory Orders Elviteg/Cob/Emtri/Tenof Alafen [Genvoya Tablet] 1 each PO DAILY 05/20/17 Buprenorphine/Naloxone [Suboxone 8 mg/2Mg Sl Film -] 1 each SL TID 04/23/20 Anemia: No Asthma: Yes Cancer: No Cardiac Disorders: Yes (ASD repair 1980) CVA: No COPD: No CHF: No Dementia: No Diabetes: No GI Disorders: No Disorders: No HTN: Yes (NO MEDS) Hypercholesterolemia: No Kidney Stones: No Liver Disease: No Seizures: No Thyroid Disease: No (2003) - Surgical History Abdominal Surgery: No Appendectomy: No Cardiac Surgery: Yes (ASD repair-1980) Cholecystectomy: No Lung Surgery: No Neurologic Surgery: No Orthopedic Surgery: No - Reproductive History Testicular Surgery: No - Psycho-Social/Smoking History Smoking History: Current every day smoker Have you smoked in the past 12 months: Yes Number of Cigarettes Smoked Daily: 10 Cigars Per Day: 0 'Breaking Loose' booklet given: 04/23/20 Heart Score/ECG Review - History History: Slightly suspicious - Electrocardiogram EKG: Non specific repolarization disturbance - Age Age: 45-65 - Risk Factors Risk Factors Heart Score: Yes Hx Hypertension Based on the list above the patient has:: 1-2 risk factors - Troponin Troponin: </= normal limit - Score Heart Score - Total: 3 - ECG Intrepretation Comment:: 04/23/20 14:08 EKG normal sinus rhythm, no ST elevations. T wave abnormalities present in previous EKGs. Prolonged QTc. Vent rate 65bpm, WV interval 182ms, QRS 74ms, QT/QTc 476/495 ED Treatment Course - LABORATORY CBC & Chemistry Diagram: 04/23/20 15:00 04/23/20 15:00 Discharge - Discharge Information Problems reviewed: No Clinical Impression/Diagnosis: Cocaine dependence, uncomplicated Alcohol dependence Qualifiers: Substance use status: uncomplicated Qualified Code(s): F10.20 - Alcohol dependence, uncomplicated Opiate dependence Qualifiers: Substance use status: uncomplicated Qualified Code(s): F11.20 - Opioid dependence, uncomplicated Condition: Guarded - Admission Yes - Follow up/Referral - Patient Discharge Instructions - Post Discharge Activity
[2020-04-23 13:34] VITALS: BMI 27.6
--- NOTE | 2020-04-23 13:37 | PDOC ---
Documentation entered by Yrai Nickerson SCRIBE, acting as scribe for Jameson Lei MD. Jameson Lei MD: This documentation has been prepared by the Krishan pires Xhesika, SCRIBE, under my direction and personally reviewed by me in its entirety. I confirm that the documentation accurately reflects all work, treatment, procedures, and medical decision making performed by me. Attending Attestation - Resident Resident Name: Nicci Degroot - ED Attending Attestation I have performed the following: I have examined & evaluated the patient, The case was reviewed & discussed with the resident, I agree w/resident's findings & plan, Exceptions are as noted - HPI HPI: 04/23/20 12:55 The patient is a 49y/o M with a PMH of HIV (on Genvoya, noncompliant), asthma, HTN, alcohol/ heroine/ cocaine abuse who presents to the ED BIBA from [facility] for heart murmur. Pt states he was told he had a heart murmur since he was a kid. Pt states he last used heroine/ crack cocaine this aM. Pt states he takes Suboxone but has not had it in 2 days. denies ever using IVDU, fever/chills, cp, sob, palpitations, lightheadedness, kelly. Allergies: Lactose - Physicial Exam PE: 04/23/20 13:37 exam: General: No acute distress, mildly somnolent but easily arousable Card: grade 1 systolic murmer, rrr Pulm: cta b/l abd: soft nontender - Medical Decision Making 04/23/20 13:12 a&p asymptomatic chronic systolic murmer ekg pending will dc back to [facility] to continue detox 04/23/20 14:27 an ekg we obtained showed new TWI from the past 3 years. as pt uses cocaine, will do a 2 trop r.o as he was other asympmtatic 04/23/20 18:57 pts repeat ekg noted for upright T waves now - pseudonormlization of T waves will admit for further evaluation Heart Score/ECG Review - ECG Impressions Comment:: 04/23/20 14:26 Twelve-lead EKG was performed and reviewed by me. There is normal sinus rhythm with a normal rate. rate of 65 twi in [facility] gucci - new when compared with prior ekg in 2017 Discharge - Discharge Information Problems reviewed: Yes Clinical Impression/Diagnosis: Cocaine dependence, uncomplicated Alcohol dependence Qualifiers: Substance use status: uncomplicated Qualified Code(s): F10.20 - Alcohol dependence, uncomplicated Opiate dependence Qualifiers: Substance use status: uncomplicated Qualified Code(s): F11.20 - Opioid dependence, uncomplicated Condition: Guarded - Follow up/Referral - Patient Discharge Instructions - Post Discharge Activity
[2020-04-23 15:52] LABS: BASO % 0.7 % (0-2.0); EOS % 14.3 % (0-4.5); HEMATOCRIT 36.4 % (35.4-49); HEMOGLOBIN 11.4 GM/dL (11.7-16.9); LYMPH % 26.7 % (8-40); MCH 27.8 pg (25.7-33.7); MCHC 31.3 g/dl (32.0-35.9); MEAN CELL VOLUME 88.8 fl (80-96); MEAN PLT VOLUME 8.7 fl (7.5-11.1); MONO % 16.3 % (3.8-10.2); PLATELET COUNT 183 K/MM3 (134-434); RDW 13.9 % (11.9-15.9); WHITE BLOOD COUNT 2.7 K/mm3 (4.0-10.0)
[2020-04-23 16:35] LABS: ALBUMIN 3.1 g/dl (3.4-5.0); ALK PHOS 66 U/L (45-117); ANION GAP 5 MMOL/L (8-16); BILIRUBIN,TOTAL 0.3 mg/dL (0.2-1); BLOOD UREA NITROGEN 11.7 mg/dL (7-18); CALCIUM 8.6 mg/dL (8.5-10.1); CHLORIDE 106 mmol/L (98-107); CO2 32 mmol/L (21-32); GLUCOSE,RANDOM 77 mg/dL (74-106); POTASSIUM 4.1 mmol/L (3.5-5.1); SGOT/AST 21 U/L (15-37); SGPT/ALT 18 U/L (13-61); SODIUM 143 mmol/L (136-145)
[2020-04-23] MEDS ORDERED: ASPIRIN 81 MG CHEWABLE TABLETS PO ONE (19:02)
[2020-04-23] MEDS ORDERED: ASPIRIN 81 MG CHEWABLE TABLETS ONE (19:19)
[2020-04-23 19:56] LABS: INR 0.92 (0.83-1.09); PROTHROMBIN TIME (PATIENT) 10.9 SEC (9.7-13.0)
[2020-04-23 19:59] LABS: ACTIVATED PTT 32.2 SECONDS (25.2-36.5)
--- NOTE | 2020-04-23 20:09 | PN ---
Teaching Attending Note Name of Resident: Sonja Denis ATTENDING PHYSICIAN STATEMENT I saw and evaluated the patient. I reviewed the resident's note and discussed the case with the resident. I agree with the resident's findings and plan as documented. SUBJECTIVE: Patient is a 49 year old man with a PMH of HTN, HIV disease (nonadherent with medications), Polysubstance abuse (opiate use, heroin use, cocaine, alcohol) and Tobacco use sent from [facility] because a murmur was heard on physical examination. The patient was uncooperative to questioning. He reports that the last time he used cocaine and heroin was yesterday. He denies trauma, and states that he takes the heroin and cocaine by nose. Also takes Suboxone - last use 2 days ago. Denies ever having delirium tremens or a seizure when withdrawing. He admits to diarrhea. He also reports that he has been told he has a murmur his entire life. Patient denies chest pain, shortness of breath, abdominal pain, headache, palpitations, dizziness, fever, chills, nausea, vomiting, constipation, dysuria, frequency, urgency, melena, hematochezia or hematuria. No sick contacts or recent travels. Family history is unremarkable. OBJECTIVE: Alert Vital Signs Period Temp Pulse Resp BP Sys/Mathew Pulse Ox Last 24 Hr 97.9 F 71 15 136/74 98 HEENT: No Jaundice, eye redness or discharge, PERRLA, EOMI. Normocephalic, atraumatic. External ears are normal and hearing is grossly intact. No nasal discharge. Neck: Supple, nontender. No palpable adenopathy or thyromegaly. No JVD Chest: Good effort. Clear to auscultation and percussion. Heart: Regular. No S3, rub or murmur Abdomen: Not distended, soft, nontender and no HSM. No rebound or guarding. Normal bowel sounds. Ext: Peripheral pulses intact. No leg edema. Skin: Warm and dry. No petechiae, rash or ecchymosis. Neuro: Alert. Oriented x3. No tremors or asterexis; CN 2-12 grossly intact. Sensation grossly intact in all four extremities and DTR are symmetric. Psych: Appropriate mood and affect. Good insight. Home Medications Medication Instructions Recorded Elviteg/Cob/Emtri/Tenof Alafen 1 each PO DAILY 05/20/17 [Genvoya Tablet] Buprenorphine/Naloxone [Suboxone 8 1 each SL TID 04/23/20 mg/2Mg Sl Film -] Abnormal Lab Results 04/23/20 04/23/20 15:00 15:00 WBC 2.7 L Hgb 11.4 L MCHC 31.3 L Absolute Neuts (auto) 1.1 L Neutrophils % 42.0 L Monocytes % 16.3 H Eosinophils % 14.3 H Anion Gap 5 L CK-MB (CK-2) 5.1 H Albumin 3.1 L ASSESSMENT AND PLAN: 1. Heart murmur/Rule out ACS - CXR shows cardiomegaly with increased interstitial markings. Initial EKG showed NSR at 65/minute and QTc 495, T wave inversion in V4-V5 with no significant ST changes. Troponin is negative x2. Got Aspirin 162 mg in the ER. Will avoid drugs that may prolong QTc. Repeat EKG showed resolution of T wave inversion - effect of cocaine?. Will admit to telemetry, get ECHO, TSH and consult Cardiology. Mild leukopenia likely due to HIV disease and/or alcoholism. Will consult ID for HIV care. Monitor closely for drug withdrawal. Implement [facility] alcohol withdrawal protocol and do neurochecks. Implement seizure, fall and aspiration precautions. Treat with IV Banana bag, thiamine and folic acid. Monitor and replete electrolytes (Ca,Mg,K,P). Counseled patient about abstaining from illicit drugs and alcohol. Will consult networking specialist and refer to alcohol/drug detox upon discharge. Viral testing for COVID-19 ordered and patient placed on airborne, droplet and contact isolation. Will continue comprehensive care for all of patients comorbid conditions. 2. Hypoalbuminemia - Possibly due to combined effects of malnutrition and inflammation associated with comorbid conditions. Will ensure adequate dietary protein intake and also consult environmental quality analyst. Urinalysis pending. 3. Tobacco Use Counseled on risks associated with tobacco use. We will provide patient all the necessary assistance to facilitate smoking cessation and prescribe Nicotine patch. 4. Anemia - Likely multifactorial. Will do basic anemia work up including serial stool guaiacs, reticulocyte count and iron studies. 5. Hypertension Will restart suitable outpatient antihypertensive drugs when clinically appropriate. Subsequently, will revise regimen to ensure [id number] excellent BP control. Patient counseled on the injurious effects of uncontrolled hypertension. Nonpharmacologic measures to control hypertension like weight loss, salt restriction and exercise stressed. Importance of adherence to treatment regimen and attainment of normotension emphasized. 6. DVT prophylaxis - Lovenox 40 mg SQ q 24 hours. 7. Advance directives - Full code HEENT: No Jaundice, eye redness or discharge, PERRLA, EOMI. Normocephalic, atraumatic. External ears are normal and hearing is grossly intact. No nasal discharge. Neck: Supple, nontender. No palpable adenopathy or thyromegaly. No JVD Chest: Good effort. Clear to auscultation and percussion. Heart: Regular. No S3, rub or murmur Abdomen: Not distended, soft, nontender and no HSM. No rebound or guarding. Normal bowel sounds. Ext: Peripheral pulses intact. No leg edema. Skin: Warm and dry. No petechiae, rash or ecchymosis. Neuro: Alert. Oriented x3. CN 2-12 grossly intact. Sensation grossly intact in all four extremities and DTR are symmetric. Psych: Appropriate mood and affect. Good insight. Denies alcohol, tobacco or illicit drug use. No sick contacts or recent travels. Family history is unremarkable. Patient has a family history of . Acute hypoxic respiratory failure/Rule out COVID-19 infection - Oxygen saturation was % on room air. CT chest shows bilateral ground glass infiltrates. CXR shows cardiomegaly without evidence of acute lung diseasebilateral interstitial and airspace opacities/pneumonic infiltrates. Viral testing for COVID-19 ordered and patient placed on airborne, droplet and contact isolation. Started on supplemental oxygen via nasal cannula/non- rebreather mask. ER staff prescribed Tylenol, Mylanta, Pepcid, Zofran, Aspirin, IV LR and IV NS for the patient. EKG shows NSR at /minute and QTc with no significant ST-T wave changes. Initial troponin is negative. Will avoid drugs that may prolong QTc. Will admit to telemetry, trend troponin, get ECHO, TSH, carotid doppler, fasting lipids, brain MRI, do speech and swallow evaluation, neurochecks and implement fall/aspiration/seizure precautions. Consult Cardiology/PT/Neurology/Pulmonary. Will treat with Duoneb, Solumedrol 40 mg q 8 hours, Symbicort and Azithromycin 500 mg IV QD and monitor peak flow. Will treat with escalating doses of IV Lasix to achieve adequate diuresis, restrict dietary salt intake, monitor renal function, monitor and replete electrolytes, get daily weight and consult Cardiology. Will treat patient with Zinc sulfate, Pepcid, Vitamin C, IV Rocephin and Azithromycin, Tylenol PRN and consult ID. Hypokalemia and hyponatremia likely partly due to hyperglycemia. Will check serum magnesium, give IV and PO KCL, limit free water intake and correct hyperglycemia. Will continue comprehensive care for all of patients comorbid conditions. Hypoalbuminemia - Possibly due to combined effects of malnutrition and inflammation associated with comorbid conditions. Will ensure adequate dietary protein intake and also consult environmental quality analyst. Urinalysis pending. DM For now, we will hold the home diabetes drugs and implement sliding scale insulin regimen. Provide comprehensive diabetes care with patient teaching and counseling about the importance of adherence to prescribed diabetes regimen, euglycemia, eye care and foot care. Tobacco Use Counseled on risks associated with tobacco use. We will provide patient all the necessary assistance to facilitate smoking cessation and prescribe Nicotine patch. CKD/JUAN JOSE Will get kidney sonogram, hydrate gently, monitor urine output and consult Nephrology. Avoid nephrotoxic agents such as NSAIDS, aminoglycosides, contrast dyes and certain Alternative medicine products. Anemia -Do basic anemia work up including serial stool guaiacs, reticulocyte count and iron studies. Would benefit from Procrit therapy once iron replete. Polypharmacy - Will liaise with patient's PCP to discontinue medications that are not absolutely essential. Obesity Counseled on the risks associated with obesity. Will provide patient all the necessary assistance, counseling and positive reinforcement to facilitate weight loss. Consult environmental quality analyst. Alcohol abuse - Implement [facility] alcohol withdrawal protocol and do neurochecks. Implement seizure, fall and aspiration precautions. Treat with IV Banana bag, thiamine and folic acid. Monitor and replete electrolytes (Ca,Mg,K,P). Counseled patient about abstaining from alcohol. Will consult networking specialist and refer to alcohol detox upon discharge. Hypertension Will restart suitable outpatient antihypertensive drugs when clinically appropriate. Subsequently, will revise regimen to ensure ro [id number] excellent BP control. Patient counseled on the injurious effects of uncontrolled hypertension. Nonpharmacologic measures to control hypertension like weight loss, salt restriction and exercise stressed. Importance of adherence to treatment regimen and attainment of normotension emphasized. DVT prophylaxis - Lovenox 40 mg SQ q 24 hours. Heparin 5000u sq tid. Advance directives - Full code Patient denies chest pain, shortness of breath, abdominal pain, headache, palpitations, dizziness, fever, chills, nausea, vomiting, diarrhea, constipation, dysuria, frequency, urgency, melena, hematochezia or hematuria. CXR shows cardiomegaly with no evidence of acute lung disease. No evidence of acute intracranial pathology on noncontrast head CT scan. C-spine CT did not show any fracture.
[2020-04-24] MEDS: FOLIC ACID INJECTION - 1 MG, THIAMINE HCL 100 MG, MULTIVIT INJECTION ADULT 10 ML in SOD... IVPB ONE ×2 (00:10→00:51)
--- NOTE | 2020-04-24 04:06 | HP ---
HISTORY OF PRESENT ILLNESS: Patient is a 49yo male PMHx of gonorrhea, ASD repaired at age 11, HTN, Asthma, Asthma, HIV, Depression and anxiety who was referred from [facility] for a murmur heard on P/E. Patient is intoxicated, agitated and unarousable despite calling and tapping by several people. ER course was notable for: (1)Aspirin (2)N/S (3) Recent Travel: None PAST SURGICAL HISTORY: ASD repair Social History: Smoking:Hx not known Alcohol: YES. As stated above Drugs: Yes. As stated above Allergies: lactose Allergy with diarrhea (Intermediate, Verified 04/23/20 09:58) HOME MEDICATIONS: Home Medications Medication Instructions Recorded Elviteg/Cob/Emtri/Tenof Alafen 1 each PO DAILY 05/20/17 [Genvoya Tablet] Buprenorphine/Naloxone [Suboxone 8 1 each SL TID 04/23/20 mg/2Mg Sl Film -] REVIEW OF SYSTEMS Patient is not cooperative. He is intoxicated and unarousably asleep Vital Signs - 24 hr 04/23/20 11:55 Temperature 97.9 F Pulse Rate 71 Respiratory 15 Rate Blood Pressure 136/74 O2 Sat by Pulse 98 Oximetry (%) PHYSICAL EXAMINATION GENERAL: cchexic looking male individual, Not alert, very intoxicated and unable to sustain a discussion HEAD: Normal with no area of tenderness. EYES:Limited by patient's postion EARS, NOSE, THROAT: Limited by patient's postion NECK:Limited exam; no enlarged L. nodes felt LUNGS:Only posterior chest wall could be examined. Vesicular BS heard b/l, no crackles heard. Ant chest wall could not be examined HEART: Regular rate and rhythm, normal S1 and S2 without murmur, rub or gallop. ABDOMEN: Soft, nontender, not distended, normoactive bowel sounds, no guarding, no rebound, no masses. No hepatomegaly or splenomegaly. MUSCULOSKELETAL: UPPER EXTREMITIES: 2+ pulses, warm, well-perfused. No cyanosis. No clubbing. No peripheral edema. LOWER EXTREMITIES: 2+ pulses, warm, well-perfused. No calf tenderness. No peripheral edema. NEUROLOGICAL: intoxicated, unable to obey commmands,agitated PSYCHIATRIC: Not coperative. SKIN: Limited exam: warm, dry, normal turgor, normal capillary refill. Laboratory Results - last 24 hr 04/23/20 04/23/20 04/23/20 15:00 15:00 17:32 WBC 2.7 L RBC 4.10 Hgb 11.4 L Hct 36.4 MCV 88.8 MCH 27.8 MCHC 31.3 L RDW 13.9 Plt Count 183 MPV 8.7 D Absolute Neuts (auto) 1.1 L Neutrophils % 42.0 L Lymphocytes % 26.7 Monocytes % 16.3 H Eosinophils % 14.3 H Basophils % 0.7 Nucleated RBC % 0 PT with INR INR PTT (Actin FS) Sodium 143 Potassium 4.1 Chloride 106 Carbon Dioxide 32 Anion Gap 5 L BUN 11.7 Creatinine 1.0 Est GFR (CKD-EPI)AfAm 103.42 Est GFR (CKD-EPI)NonAf 89.23 Random Glucose 77 Calcium 8.6 Total Bilirubin 0.3 AST 21 ALT 18 Alkaline Phosphatase 66 Creatine Kinase 190 Creatine Kinase Index 2.6 CK-MB (CK-2) 5.1 H Troponin I < 0.02 < 0.02 Total Protein 7.0 Albumin 3.1 L 04/23/20 19:30 WBC RBC Hgb Hct MCV MCH MCHC RDW Plt Count MPV Absolute Neuts (auto) Neutrophils % Lymphocytes % Monocytes % Eosinophils % Basophils % Nucleated RBC % PT with INR 10.90 INR 0.92 PTT (Actin FS) 32.2 Sodium Potassium Chloride Carbon Dioxide Anion Gap BUN Creatinine Est GFR (CKD-EPI)AfAm Est GFR (CKD-EPI)NonAf Random Glucose Calcium Total Bilirubin AST ALT Alkaline Phosphatase Creatine Kinase Creatine Kinase Index CK-MB (CK-2) Troponin I Total Protein Albumin ASSESSMENT/PLAN: #Alcohol vs cocaine vs heroine use disorder with acute intoxication : Hx of alcohol=4 cans, cocaine=2bags and heroine=7 bags abuse as noted on medical record Patient is currently intoxicated. Last dose of stated substance was prior to presentation Admit to [facility] for monitoring. Monitor closely for signs of withdrawal Monitor CIWA score librium protocol to be implemented Administer banana bag to supply folate, thiamine and Mg-Sulphate Monitor K/ Mg/Ca/P and replete if necessary UA Nicotine patch for tobacco smoking Consult land reclamation specialist (Dr. Mckinley) scalp treatment specialist and refer to alcohol/drug detox upon discharge COVID-19 viral PCR. Patient placed on airborne, droplet and contact isolation Refer to [facility] after discharge for detox and possible rehabilitation Echocardiography to r/o valvular heart disease 2/2 IV drug use or HTN Consult workers compensation attorney Avoid QTC prolonging meds: Macrolides,floroquinolones,azole antifungal, antipsychotics, TCAs and others Implement seizure, fall and seizure protocol Iron studies: TIBC, ferritin, serum iron Hat And Cap Parts Cutter Hand on substance abuse # Tobacco Use Educated on health risk associated with tobacco use. We will provide patient all the necessary assistance to facilitate smoking cessation and prescribe Nicotine patch. #HIV Resume home meds Know HIV patient Neutropenia Eosinophilia Thrombocytopenia Consult ID for HIV management Educate patient on importance of medication adherence to patients and the community # Anemia Likely multifactorial Iron studies: TIBC, ferritin, serum iron and reticulocyte counts FOTB # Hypoalbuminemia May be due to escape of albumin into extravascular space in malnutrition and inflammation associated with comorbid conditions. Will ensure adequate protein intake consult media planner. Urinalysis pending. # COCAINE INDUCED EKG CHANGES: Hx of recent cocaine use -ve troponins Initial ekg showed T wave inversion in lead V4 and V5 with pseudo-reversal on repea # DVT prophylaxis - Lovenox 40 mg SQ q 24 hours. # FEN: PO, decrease sodium diet Banana bag for supply of folate, MgSO4 and thiamine #DISPOSITION Telemetry monitoring Patient to continue comprehensive care with PCP on discharge Visit type - Emergency Visit Emergency Visit: Yes ED Registration Date: 04/23/20 Care time: The patient presented to the Emergency Department on the above date and was hospitalized for further evaluation of their emergent condition. - New Patient This patient is new to me today: Yes Date on this admission: 04/23/20 - Critical Care Critical Care patient: No ATTENDING PHYSICIAN STATEMENT I saw and evaluated the patient. I reviewed the resident's note and discussed the case with the resident. I agree with the resident's findings and plan as documented. SUBJECTIVE: OBJECTIVE: ASSESSMENT AND PLAN:
[2020-04-24] MEDS: HEPARIN NA (PORCINE) 5,000 UNITS/ML 1ML VIAL SQ SCH ×3 (06:41→22:23)
--- NOTE | 2020-04-24 08:21 | PN ---
Physical Exam: SUBJECTIVE: Patient seen but not examined as he refused the PE. Was very rude, asking for something to drink and when I brought him water he was upset that it was not juice. OBJECTIVE: Vital Signs Period Temp Pulse Resp BP Sys/Mathew Pulse Ox Last 24 Hr 97.9 F 71 15-15 136/74 98 Physical Exam: Patient refused physical exam and was rude. Laboratory Results - last 24 hr 04/23/20 04/23/20 04/23/20 15:00 15:00 17:32 WBC 2.7 L RBC 4.10 Hgb 11.4 L Hct 36.4 MCV 88.8 MCH 27.8 MCHC 31.3 L RDW 13.9 Plt Count 183 MPV 8.7 D Absolute Neuts (auto) 1.1 L Neutrophils % 42.0 L Lymphocytes % 26.7 Monocytes % 16.3 H Eosinophils % 14.3 H Basophils % 0.7 Nucleated RBC % 0 PT with INR INR PTT (Actin FS) Sodium 143 Potassium 4.1 Chloride 106 Carbon Dioxide 32 Anion Gap 5 L BUN 11.7 Creatinine 1.0 Est GFR (CKD-EPI)AfAm 103.42 Est GFR (CKD-EPI)NonAf 89.23 Random Glucose 77 Calcium 8.6 Total Bilirubin 0.3 AST 21 ALT 18 Alkaline Phosphatase 66 Creatine Kinase 190 Creatine Kinase Index 2.6 CK-MB (CK-2) 5.1 H Troponin I < 0.02 < 0.02 Total Protein 7.0 Albumin 3.1 L 04/23/20 19:30 WBC RBC Hgb Hct MCV MCH MCHC RDW Plt Count MPV Absolute Neuts (auto) Neutrophils % Lymphocytes % Monocytes % Eosinophils % Basophils % Nucleated RBC % PT with INR 10.90 INR 0.92 PTT (Actin FS) 32.2 Sodium Potassium Chloride Carbon Dioxide Anion Gap BUN Creatinine Est GFR (CKD-EPI)AfAm Est GFR (CKD-EPI)NonAf Random Glucose Calcium Total Bilirubin AST ALT Alkaline Phosphatase Creatine Kinase Creatine Kinase Index CK-MB (CK-2) Troponin I Total Protein Albumin Active Medications Generic Name Dose Route Start Last Admin Trade Name Freq PRN Reason Stop Dose Admin Heparin Sodium (Porcine) 5,000 unit 04/24/20 06:00 04/24/20 06:41 Heparin - SQ Not Given TID [facility] ASSESSMENT/PLAN: 49yo M with PHx of polysubstance abuse (heroin, cocaine, alcohol, tobacco), HIV (on Genvoya - noncompliant), and HTN sent over from [facility] because they heard a murmur on physical exam. Of note, the patient has had a murmur since childhood and had an ASD repair at age of 11yo. Patient currently takes suboxone TID. ED workup included: EKG showed T wave inversions in V4 and V5 which resolved on repeat EKG and prolonged QTc, and a CXR that showed no acute lung disease. Trops were negative x2, CK-MB 5.1, and BMP/coags/LFTs were WNL. Patient admitted for treatment of withdrawal. #Polysubstance abuse monitor for withdrawal - started librium protocol - started home dose suboxone (dose verified with TAPPER OPERATOR) - CIWA and COWS score: unable to assess as patient refused to cooperate - neurochecks - may IV banana bag with thiamine and folate - ocean lifeguard specialist consult - refer to alcohol/drug detox upon discharge - UA - may consider urine tox screen #Heart murmur likely secondary to childhood hx of ASD s/p repair and lifelong hx of a heart murmur need to r/o ACS: CXR unremarkable EKG T wave changes resolved trops unremarkable Echo unremarkable - got ASA - avoid QTc prolonging drugs: macrolides,floroquinolones,azole antifungal, antipsychotics, TCAs, etc - cardio consult - TSH #mild leukopenia likely secondary to HIV in setting of medical noncompliance (vs alcohol use disorder) - ID consult for HIV management - COVID pending - airborne, droplet and contact isolation (patient was lying in the ED hallway on a stretcher and walking around the ED) #HTN currently on no medication - may consider amlodipine inf BP continues to rise ([facility] are first-line in AAs) #Anemia (multifactorial?) - may consider serial stool guaiacs - may consider reticulocyte count - may consider iron studies (TIBC, ferritin, serum iron) #hypoalbuminemia (malnutrition vs inflammation) - nutrition consult (increase protein intake) #FED - no standing fluids - replete lytes PRN - sodium controlled diet #PPX - DVT: SQ heparin #Dispo: telemetry monitoring Visit type - Emergency Visit Emergency Visit: Yes ED Registration Date: 04/23/20 Care time: The patient presented to the Emergency Department on the above date and was hospitalized for further evaluation of their emergent condition. - New Patient This patient is new to me today: Yes Date on this admission: 04/24/20 - Critical Care Critical Care patient: No ATTENDING PHYSICIAN STATEMENT I saw and evaluated the patient. I reviewed the resident's note and discussed the case with the resident. I agree with the resident's findings and plan as documented. SUBJECTIVE: OBJECTIVE: ASSESSMENT AND PLAN:
--- NOTE | 2020-04-24 09:07 | EKG ---
Test Reason : Blood Pressure : / mmHG Vent. Rate : 066 BPM Atrial Rate : 066 BPM P-R Int : 178 ms QRS Dur : 080 ms QT Int : 480 ms P-R-T Axes : 065 -33 061 degrees QTc Int : 503 ms NORMAL SINUS RHYTHM POSSIBLE LEFT ATRIAL ENLARGEMENT LEFT AXIS DEVIATION SEPTAL INFARCT (CITED ON OR BEFORE 23-APR-2020) PROLONGED QT ABNORMAL ECG WHEN COMPARED WITH ECG OF 23-APR-2020 14:03, T WAVE INVERSION NO LONGER EVIDENT IN ANTEROLATERAL LEADS Confirmed by Preston Hancock ([id number]) on 04/24/2020 9:06:48 AM Referred By: Confirmed By:Preston Hancock
--- NOTE | 2020-04-24 09:08 | EKG ---
Test Reason : Blood Pressure : / mmHG Vent. Rate : 065 BPM Atrial Rate : 065 BPM P-R Int : 182 ms QRS Dur : 074 ms QT Int : 476 ms P-R-T Axes : 041 -42 039 degrees QTc Int : 495 ms NORMAL SINUS RHYTHM LEFT AXIS DEVIATION MINIMAL VOLTAGE CRITERIA FOR LVH, MAY BE NORMAL VARIANT SEPTAL INFARCT (CITED ON OR BEFORE 23-APR-2020) T WAVE ABNORMALITY, CONSIDER ANTERIOR ISCHEMIA ABNORMAL ECG WHEN COMPARED WITH ECG OF 23-APR-2020 09:48, T WAVE INVERSION NOW EVIDENT IN ANTERIOR LEADS Confirmed by Preston Hancock ([id number]) on 04/24/2020 9:08:20 AM Referred By: Confirmed By:Preston Hancock
--- NOTE | 2020-04-24 10:44 | PN ---
Progress Note (short form) - Note Progress Note: ID consult dictated imp/reccd 49 yo man with HIV, substance use (etoh, crack, heroin- denies IVDU) history of asd repair as child, reports murmur since childhood +cigarette use no fevers no cough went to detox sent to ED for Murmur minimal history from patient, he is experiencing withdrawal symptoms and requesting meds- nurse informed reports he is on genvoya and followed in clinic in [place]- has been off meds for two weeks and wishes to resume does not know tcells or viral load- denies history of TB, hepatitis would obtain tcells to see if he needs any prophylaxis can resume genvoya if he wishes to do so and can f/u with his primary clinic in [place] echo pending, cardiology consult pending eosinophilia- would follow- ?new meds, no rash, denies diarrhea- can send stool ova and parasites and strongyloides antibody if eosinophilia persists 2 Problem List - Problems (1) Murmur Code(s): R01.1 - CARDIAC MURMUR, UNSPECIFIED (2) HIV (human immunodeficiency virus infection) Code(s): Z21 - ASYMPTOMATIC HUMAN IMMUNODEFICIENCY VIRUS INFECTION STATUS Qualifiers: HIV symptom status: unspecified Qualified Code(s): B20 - Human immunodeficiency virus [HIV] disease (3) Polysubstance abuse Code(s): F19.10 - OTHER PSYCHOACTIVE SUBSTANCE ABUSE, UNCOMPLICATED (4) Eosinophilia Code(s): D72.1 - EOSINOPHILIA
--- NOTE | 2020-04-24 11:22 | ECHO ---
Version: 1 Name: FERNANDO GONZALEZ Exam: Adult Echocardiogram Study Date: 04/24/2020, 9:11 AM Age: 49 Years MMode/2D Measurements & Calculations IVSd: 1.05 cm LVIDs: 2.43 cm LVIDd: 3.3 cm LVPWd: 1.28 cm LVOT diam: 1.97 cm Ao root diam: 3.3 cm LA dimension: 3.3 cm Doppler Measurements & Calculations MV E max nayan: 62.7 cm/sec Med E/e': 13.0 MV A max nayan: 93.8 cm/sec Med Peak E' Nayan: 4.8 cm/sec MV E/A: 0.67 Lat E/e': 7.2 Lat Peak E' Nayan: 8.7 cm/sec Ao max P.4 mmHg Ao V2 max: 126.0 cm/sec Procedure A complete two-dimensional transthoracic echocardiogram was performed (2D, M-mode, Doppler and color flow Doppler). Left Ventricle The left ventricular size, thickness and function are normal. Grade I diastolic dysfunction, (abnorm al relaxation pattern). Right Ventricle The right ventricle is normal in size and function. Atria Normal left and right atrial size and function. Mitral Valve The mitral valve is normal in structure and function. There is trace mitral regurgitation. Tricuspid Valve The tricuspid valve is normal in structure and function. There is mild tricuspid regurgitation. Assu charissa the RA pressure is 5 mmHg. There was insufficient TR detected to calculate RV systolic pressure. Aortic Valve The aortic valve is normal in structure and function. No hemodynamically significant valvular aortic stenosis. Pulmonic Valve The pulmonic valve is normal in structure and function. Great Vessels The aortic root is normal size. Pericardium/Pleura There is no pericardial effusion. Summary Statements The left ventricular size, thickness and function are normal The right ventricle is normal in size and function. Preston Karlstad 04/24/2020, 11:21 AM Ordering Physician: Davion Flores Performed By: Deborah Arora
--- NOTE | 2020-04-24 12:12 | CON.CARD ---
Consult Consult Specialty:: Cardiology - History of Present Illness History of Present Illness: 49 year old man with a PMH of HTN, HIV disease (nonadherent with medications), Polysubstance abuse (opiate use, heroin use, cocaine, alcohol) and Tobacco use sent from [facility] because a murmur was heard on physical examination. The patient was uncooperative to questioning. He reports that the last time he used cocaine and heroin was yesterday. He denies trauma, and states that he takes the heroin and cocaine by nose. Also takes Suboxone - last use 2 days ago. Denies ever having delirium tremens or a seizure when withdrawing. He admits to diarrhea. He also reports that he has been told he has a murmur his entire life. Patient denies chest pain, shortness of breath, abdominal pain, headache, palpitations, dizziness, fever, chills, nausea, vomiting, constipation, dysuria, frequency, urgency, melena, hematochezia or hematuria. No sick contacts or recent travels. Family history is unremarkable. - History Source History Provided By: Patient, Medical Record - Alcohol/Substance Use Hx Alcohol Use: Yes - Smoking History Smoking history: Current every day smoker Have you smoked in the past 12 months: Yes Aproximately how many cigarettes per day: 10 Home Medications - Allergies Allergies/Adverse Reactions: Allergies Allergy/AdvReac Type Severity Reaction Status Date / Time lactose Allergy Intermediate Verified 04/23/20 09:58 - Home Medications Home Medications: Ambulatory Orders Elviteg/Cob/Emtri/Tenof Alafen [Genvoya Tablet] 1 each PO DAILY 05/20/17 Buprenorphine/Naloxone [Suboxone 8 mg/2Mg Sl Film -] 1 each SL TID 04/23/20 Review of Systems - Review of Systems Constitutional: reports: No Symptoms Eyes: reports: No Symptoms HENT: reports: No Symptoms Neck: reports: No Symptoms Cardiovascular: reports: No Symptoms Gastrointestinal: reports: No Symptoms Genitourinary: reports: No Symptoms Breasts: reports: No Symptoms Reported Musculoskeletal: reports: No Symptoms Integumentary: reports: No Symptoms Neurological: reports: No Symptoms Endocrine: reports: No Symptoms Hematology/Lymphatic: reports: No Symptoms Psychiatric: reports: No Symptoms Vital Signs: Vital Signs Temperature 97.9 F 04/23/20 11:55 Pulse Rate 71 04/23/20 11:55 Respiratory Rate 15 04/24/20 04:42 Blood Pressure 136/74 04/23/20 11:55 O2 Sat by Pulse Oximetry (%) 98 04/23/20 11:55 Constitutional: Yes: Well Nourished, No Distress, Calm Eyes: Yes: WNL, Conjunctiva Clear, EOM Intact HENT: Yes: WNL, Atraumatic, Normocephalic Neck: Yes: WNL, Supple, Trachea Midline Respiratory: Yes: WNL, Regular, CTA Bilaterally Gastrointestinal: Yes: WNL, Normal Bowel Sounds Renal/: Yes: WNL Cardiovascular: Yes: WNL, Regular Rate and Rhythm Heart Sounds: Yes: S1, S2 Murmur: Yes: Systolic Murmur, Grade 1 Musculoskeletal: Yes: WNL Extremities: Yes: WNL Integumentary: Yes: WNL Neurological: Yes: WNL, Alert, Oriented ...Motor Strength: WNL Psychiatric: Yes: WNL, Alert, Oriented - Other Data Labs, Other Data: CBC, BMP 04/23/20 15:00 04/23/20 15:00 INR, PTT INR 0.92 (0.83-1.09) 04/23/20 19:30 Troponin, BNP 04/23/20 04/23/20 15:00 17:32 Troponin I < 0.02 < 0.02 Troponin, BNP 04/23/20 04/23/20 15:00 17:32 Troponin I < 0.02 < 0.02 Imaging - Results Chest X-ray: Image Reviewed (no i/e) EKG: Image Reviewed (sr lvh) Problem List - Problems (1) Alcohol dependence Code(s): F10.20 - ALCOHOL DEPENDENCE, UNCOMPLICATED Qualifiers: Substance use status: uncomplicated Qualified Code(s): F10.20 - Alcohol dependence, uncomplicated (2) Opiate dependence Code(s): F11.20 - OPIOID DEPENDENCE, UNCOMPLICATED Qualifiers: Substance use status: uncomplicated Qualified Code(s): F11.20 - Opioid dependence, uncomplicated (3) Cocaine dependence, uncomplicated Code(s): F14.20 - COCAINE DEPENDENCE, UNCOMPLICATED (4) Alcohol dependence with uncomplicated withdrawal Code(s): F10.230 - ALCOHOL DEPENDENCE WITH WITHDRAWAL, UNCOMPLICATED (5) Anxiety Code(s): F41.9 - ANXIETY DISORDER, UNSPECIFIED (6) Nicotine dependence Code(s): F17.200 - NICOTINE DEPENDENCE, UNSPECIFIED, UNCOMPLICATED Qualifiers: Nicotine product type: cigarettes Substance use status: in withdrawal Qualified Code(s): F17.213 - Nicotine dependence, cigarettes, with withdrawal (7) Opioid dependence with withdrawal Code(s): F11.23 - OPIOID DEPENDENCE WITH WITHDRAWAL (8) Sedative, hypnotic or anxiolytic dependence with withdrawal, uncomplicated Code(s): F13.230 - SEDATV/HYP/ANXIOLYTC DEPENDENCE W WITHDRAWAL, UNCOMPLICATED (9) Weight loss Code(s): R63.4 - ABNORMAL WEIGHT LOSS (10) Anxiety and depression Code(s): F41.9 - ANXIETY DISORDER, UNSPECIFIED; F32.9 - MAJOR DEPRESSIVE DISORDER, SINGLE EPISODE, UNSPECIFIED (11) Benzodiazepine dependence Code(s): F13.20 - SEDATIVE, HYPNOTIC OR ANXIOLYTIC DEPENDENCE, UNCOMPLICATED (12) Cocaine dependence Code(s): F14.20 - COCAINE DEPENDENCE, UNCOMPLICATED Qualifiers: Substance use status: uncomplicated Qualified Code(s): F14.20 - Cocaine dependence, uncomplicated (13) Crack cocaine use Code(s): F14.90 - COCAINE USE, UNSPECIFIED, UNCOMPLICATED (14) HIV (human immunodeficiency virus infection) Code(s): Z21 - ASYMPTOMATIC HUMAN IMMUNODEFICIENCY VIRUS INFECTION STATUS Qualifiers: HIV symptom status: unspecified Qualified Code(s): B20 - Human immunodeficiency virus [HIV] disease (15) Non-compliance Code(s): Z91.19 - PATIENT'S NONCOMPLIANCE W OTH MEDICAL TREATMENT AND REGIMEN (16) Depression (emotion) Code(s): F32.9 - MAJOR DEPRESSIVE DISORDER, SINGLE EPISODE, UNSPECIFIED Qualifiers: Depression Type: dysthymia Qualified Code(s): F34.1 - Dysthymic disorder (17) Substance induced mood disorder Code(s): F19.94 - OTH PSYCHOACTIVE SUBSTANCE USE, UNSP W MOOD DISORDER Assessment/Plan HTN, HIV disease (nonadherent with medications), Polysubstance abuse (opiate use, heroin use, cocaine, alcohol) and Tobacco use sent from [facility] because a murmur was heard on physical examination. Plan ECHO DVT plx
[2020-04-24] MEDS ORDERED: chlordiazePOXIDE HCL 10 MG CAPSULE PO PRN (12:32)
--- NOTE | 2020-04-24 12:32 | PN ---
Teaching Attending Note Name of Resident: Tayla Jama ATTENDING PHYSICIAN STATEMENT I saw and evaluated the patient. I reviewed the resident's note and discussed the case with the resident. I agree with the resident's findings and plan as documented. SUBJECTIVE: Resting comfortably at this time Patient reports diarrhea. OBJECTIVE: Initial Vital Signs Temp Pulse Resp BP Pulse Ox 97.9 F 71 15 136/74 98 04/23/20 11:55 04/23/20 11:55 04/23/20 11:55 04/23/20 11:55 04/23/20 11:55 As noted in resident note. ASSESSMENT AND PLAN: 49 y/o M with extensive PMH notable for HIV and polysubstance abuse who presented to [facility] for detox found to have cardiac murmur found on physical exam. Cardiac Murmur: -Check 2D Echo No signs of endocarditis on exam. Will check Blood Cx at this time Polysubstance abuse: Librium taper for ETOH abuse Restart Suboxone HIV: Unknown CD4 level Patient reports non complaince with medication will need resistance testing and outpatient followup with ID to restart HAART therapy No signs of OI at this time; Check CD4 to initiate PPx as needed Pending 2D echo results, patient can be transferred to Inpatient Detox.
[2020-04-24] MEDS ORDERED: BUPRENORPHINE/NALOXONE 8 MG/2 MG FILM PACKET SL ONE (13:40)
[2020-04-24] MEDS ORDERED: BUPRENORPHINE/NALOXONE 8 MG/2 MG FILM PACKET ONE (14:11)
--- NOTE | 2020-04-24 14:13 | CONS ---
INFECTIOUS DISEASE CONSULTATION DATE OF CONSULTATION: DATE OF DICTATION: 04/24/2020 HISTORY: This is a 49-year-old man with a history of HIV, polysubstance use, alcohol, crack cocaine and heroin all of which he sniffs. He denies IV drug use as well as cigarette use. He originally presented on the 4th to detox and noted there that he had used beer daily as well as heroin which he sniffed or snorted as well as crack cocaine, again sniffing and snorting. He smokes 10 cigarettes a day. He was evaluated for admission to the detox and was sent to the ER because he was noted to have a murmur. In the murmur he denied any fevers and chills. He denied any nausea, vomiting or cough. He gives a history of having had an ASD repair at age 11 and a history of a murmur since childhood. I am asked to see him because he has a history of HIV as well. He reports he follows in a clinic in [place] and has been off his Genvoya for about 2 weeks. He does not know his T-cells or his viral load. He is awaiting echo and cardiology evaluation. The patient clearly reports he is withdrawing. He is requesting medications and is unable to participate further in the evaluation. History is both from the chart and the patient. He denies history of TB or hepatitis in the past. PAST MEDICAL HISTORY: Notable for hypertension, asthma and HIV, depression and anxiety. He has a history of ASD repair. He has a history of gonorrhea 2 years ago. Denies as stated before any history of hepatitis or tuberculosis. REVIEW OF SYSTEMS: Currently he reports he is feeling tremulous. He denies any fevers, chills, nausea or vomiting. He has no cough. PHYSICAL EXAMINATION: Vital Signs: His temperature is 97.9. Pulse is 71, blood pressure 136/74, respiratory rate of 15, saturating 98% on room air. HEENT: He is normocephalic. His eyes are anicteric. He has no conjunctival hemorrhages. He has no thrush. Neck: Supple. Lungs: Clear to auscultation. Heart: Regular rate and rhythm. He has a very soft 1/6 systolic ejection murmur. Abdomen: Soft, nontender. Extremities: Without edema. White count is 2.7, hemoglobin 11.4. Platelets are 183. Eosinophils 14%. INR is normal. LFTs are normal. Renal function is normal and his COVID serology is pending. In summary, this is a 49-year-old man who has polysubstance use, HIV on Genvoya. Would obtain T-cells to see if he needs prophylaxis. Can resume Genvoya if he wishes to do so. He can follow up with his primary care clinic in [place]. Echo is pending. Cardiology consult pending regarding his murmur which appears to be minimal on exam and does not seem to be hemodynamically significant, but will defer to Cardiology. He has eosinophilia noted on a CBC, would follow. Question whether this is new . He has no rash. He denies diarrhea. Can send stool ova and parasites and strongyloides antibodies if the eosinophilia persists. CRISTIAN HALL M.D. [id number]
[2020-04-24] MEDS ORDERED: chlordiazePOXIDE HCL 25 MG CAPSULE ONE (15:27)
[2020-04-24] MEDS ORDERED: HEPARIN NA (PORCINE) 5,000 UNITS/ML 1ML VIAL ONE (15:27)
[2020-04-24] MEDS: chlordiazePOXIDE HCL 25 MG CAPSULE PO SCH ×3 (15:31→22:27)
[2020-04-24] MEDS: BUPRENORPHINE/NALOXONE 8 MG/2 MG FILM PACKET SL SCH (22:24)
[2020-04-25] MEDS: chlordiazePOXIDE HCL 25 MG CAPSULE PO SCH ×3 (06:39→22:19)
[2020-04-25] MEDS: HEPARIN NA (PORCINE) 5,000 UNITS/ML 1ML VIAL SQ SCH ×4 (06:39→21:47)
[2020-04-25] MEDS: BUPRENORPHINE/NALOXONE 8 MG/2 MG FILM PACKET SL SCH ×3 (06:40→21:42)
[2020-04-25 09:20] LABS: BASO % 1.2 % (0-2.0); EOS % 8.2 % (0-4.5); HEMATOCRIT 39.1 % (35.4-49); HEMOGLOBIN 12.3 GM/dL (11.7-16.9); LYMPH % 34.3 % (8-40); MCH 27.3 pg (25.7-33.7); MCHC 31.4 g/dl (32.0-35.9); MEAN CELL VOLUME 86.9 fl (80-96); MEAN PLT VOLUME 8.6 fl (7.5-11.1); MONO % 19.8 % (3.8-10.2); NEUT % 36.5 % (42.8-82.8); PLATELET COUNT 190 K/MM3 (134-434); RDW 13.9 % (11.9-15.9)
--- NOTE | 2020-04-25 12:04 | PN ---
Progress Note, Physician Chief Complaint: Pt A&ox3; denies chest pain or dyspnea. History of Present Illness: Mr. Elias is a 49 year old black man with a PMH of HTN, HIV disease (nonadherent with medications), Polysubstance abuse (opiate use, heroin use, cocaine, alcohol) and Tobacco use, now sent from [facility] because a murmur was heard on physical examination. The patient was uncooperative to questioning. He reports that the last time he used cocaine and heroin was yesterday. He denies trauma, and states that he takes the heroin and cocaine by nose. Also takes Suboxone - last use 2 days ago. Denies ever having delirium tremens or a seizure when withdrawing. He admits to diarrhea. He also reports that he has been told he has a murmur his entire life. Patient denies chest pain, shortness of breath, abdominal pain, headache, palpitations, dizziness, fever, chills, nausea, vomiting, constipation, dysuria, frequency, urgency, melena, hematochezia or hematuria. No sick contacts or recent travels. Family history is unremarkable. No chest pain. Pt says he walks regularly, and denies exertional chest pain or dyspnea; no leg swelling. - Current Medication List Current Medications: Active Medications Buprenorphine/Naloxone (Suboxone 8 Mg/2 Mg Film Packet) 1 each SL TID [facility] Last Admin: 04/25/20 06:40 Dose: 1 each Documented by: Chlordiazepoxide HCl (Librium -) 25 mg PO Q8H [facility] Stop: 04/25/20 21:01 Last Admin: 04/25/20 06:39 Dose: Not Given Documented by: Chlordiazepoxide HCl (Librium -) 10 mg PO Q12H PRN PRN Reason: Signs/symptoms of Withdrawal Stop: 04/27/20 23:59 Chlordiazepoxide HCl (Librium -) 10 mg PO Q8H PRN PRN Reason: Signs/symptoms of Withdrawal Stop: 04/26/20 23:59 Chlordiazepoxide HCl (Librium -) 15 mg PO Q8H [facility] Stop: 04/26/20 21:01 Chlordiazepoxide HCl (Librium -) 10 mg PO Q8H [facility] Stop: 04/27/20 21:01 Chlordiazepoxide HCl (Librium -) 10 mg PO ONCE ONE Stop: 04/28/20 05:01 Heparin Sodium (Porcine) (Heparin -) 5,000 unit SQ TID [facility] Last Admin: 04/25/20 06:39 Dose: Not Given Documented by: - Objective Vital Signs: Vital Signs Temperature 98 F 04/25/20 09:00 Pulse Rate 60 04/25/20 09:00 Respiratory Rate 18 04/25/20 09:00 Blood Pressure 146/78 04/25/20 09:00 O2 Sat by Pulse Oximetry (%) 96 04/25/20 09:00 Constitutional: Yes: Calm Eyes: Yes: WNL HENT: Yes: WNL Neck: Yes: WNL Cardiovascular: Yes: Regular Rate and Rhythm, Murmur (1/6 systolic murmum, RSB-->apex) Respiratory: Yes: WNL Gastrointestinal: Yes: Soft ...Rectal Exam: Yes: Deferred Genitourinary: No: Anuria Musculoskeletal: Yes: WNL Extremities: Yes: WNL Edema: No Peripheral Pulses WNL: Yes Integumentary: Yes: WNL Neurological: Yes: WNL ...Motor Strength: WNL Psychiatric: Yes: Other (addictions) Labs: CBC, BMP 04/23/20 15:00 INR, PTT INR 0.92 (0.83-1.09) 04/23/20 19:30 Abnormal Lab Results 04/25/20 04/26/20 04/26/20 06:57 05:45 05:45 WBC 2.0 L 2.0 L MCHC 31.4 L 31.4 L Absolute Neuts (auto) 0.7 L 0.5 L Neutrophils % 36.5 L 26.4 L D Monocytes % 19.8 H 15.4 H Eosinophils % 8.2 H 18.8 H D Chloride 109 H Anion Gap 6 L Calcium 8.2 L Albumin 2.9 L - ....Imaging Chest X-ray: Image Reviewed (no acute pathology) Ultrasound: Report Reviewed EKG: Image Reviewed (NSR; LAE; ? old septal infarct) Assessment/Plan HTN, HIV disease (nonadherent with medications), Polysubstance abuse (opiate use, heroin use, cocaine, alcohol) and Tobacco use sent from [facility] because a murmur was heard on physical examination. ECHO: Normal LVEF; abnormal diastolic compliance; mild TR; trace MR; no significant valvular pathology. Plan DVT plx cardiac brown stable Discontinue cardiac telemetry. Treatment as per ID and detox protocol. Avoid beta blockers (active cocaine abuse).
--- NOTE | 2020-04-25 16:08 | PN ---
Teaching Attending Note Name of Resident: Tayla Jama (\) ATTENDING PHYSICIAN STATEMENT I saw and evaluated the patient. I reviewed the resident's note and discussed the case with the resident. I agree with the resident's findings and plan as documented. SUBJECTIVE: patient sleeping this morning has no complaints OBJECTIVE: Vital Signs Period Temp Pulse Resp BP Sys/Mathew Pulse Ox Last 24 Hr 97.2 F-98.4 F 47-65 16-20 125-153/70-95 96-100 As noted in residents note ASSESSMENT AND PLAN: 49 y/o M with extensive PMH notable for HIV and polysubstance abuse who presented to [facility] for detox found to have cardiac murmur found on physical exam. Cardiac Murmur: Chronic Echo reviewed no valvulopathy noted Polysubstance abuse restarted Suboxone patient reports that he does not drink ETOH and is refusing benzo at this time Unclear secondary gain, given that patient's POWDER CARRIER reports he filled suboxone 04/22 HIV Restart Home meds as per ID Check CD4 level for possible OI ppx Can consider discharge today as we do not have any additional medical intervention to offer this patient. Will give him follow up resources for followup.
[2020-04-25] MEDS ORDERED: LORazepam 2 MG TABLET PO SCH (17:00)
[2020-04-25] MEDS ORDERED: LORazepam 1 MG TABLET PO PRN (17:54)
--- NOTE | 2020-04-25 18:43 | PN ---
Physical Exam: SUBJECTIVE: Patient seen and examined, was sleeping. Easily to arouse and responded to questions with one-word answers. Appeared disinterested. Did not recall talking to me yesterday and did not recall being upset with me yesterday. Denied abdominal or generalized pain, NVD, SOB, CP. Endorsed feeling sleepy. When asked how he got to [facility], he explained that they picked him up because he called them. When asked where he lives, he said [place] the city" and I confirmed [facility]. When asked why [place] I got no response. He endorsed wanting to detox from heroin. When asked if he is on cocaine, he said "yes" and that he also wants to detox from that. Overall unclear history and unclear goals of care. OBJECTIVE: Vital Signs Period Temp Pulse Resp BP Sys/Mathew Pulse Ox Last 24 Hr 97.9 F-98.4 F 47-65 18-20 119-148/70-93 96-100 GENERAL: cachectic, AAM, somnolent, easily arousable but remains sleepy with eyes closed, in no acute distress HEAD: Normal with no signs of trauma. poor dentition, old healed scar on lower lip EYES: PERRL, direct and consensual reflex intact, sclera anicteric, conjunctiva clear, No ptosis LUNGS: CTAB, no wheezing appreciated HEART: RRR, S1 S2 - I was unable to appreciated the murmur ABDOMEN: Soft, nontender, nondistended, hypoactive BS EXTREMITIES: 2+ pulses, warm, well-perfused, no edema. NEUROLOGICAL: Cranial nerves II through XII grossly intact. Normal speech PSYCH: flat affect, hypoverbal SKIN: Warm, no rashes or lesions noted Laboratory Results - last 24 hr 04/25/20 06:57 WBC 2.0 L RBC 4.50 Hgb 12.3 Hct 39.1 MCV 86.9 MCH 27.3 MCHC 31.4 L RDW 13.9 Plt Count 190 MPV 8.6 Absolute Neuts (auto) 0.7 L Neutrophils % 36.5 L Lymphocytes % 34.3 D Monocytes % 19.8 H Eosinophils % 8.2 H Basophils % 1.2 Nucleated RBC % 0 Active Medications Generic Name Dose Route Start Last Admin Trade Name Freq PRN Reason Stop Dose Admin Buprenorphine/Naloxone 1 each 04/24/20 22:00 04/25/20 13:04 Suboxone 8 Mg/2 Mg Film Packet SL 1 each TID [facility] Administration Chlordiazepoxide HCl 25 mg 04/24/20 13:00 04/25/20 12:50 Librium - PO 04/25/20 21:01 Not Given Q8H [facility]SA Chlordiazepoxide HCl 10 mg 04/27/20 00:00 Librium - PO 04/27/20 23:59 Q12H PRN Signs/symptoms of Withdrawal Chlordiazepoxide HCl 10 mg 04/24/20 12:32 Librium - PO 04/26/20 23:59 Q8H PRN Signs/symptoms of Withdrawal Chlordiazepoxide HCl 15 mg 04/26/20 05:00 Librium - PO 04/26/20 21:01 Q8H [facility] Chlordiazepoxide HCl 10 mg 04/27/20 05:00 Librium - PO 04/27/20 21:01 Q8H [facility] Chlordiazepoxide HCl 10 mg 04/28/20 05:00 Librium - PO 04/28/20 05:01 ONCE ONE Heparin Sodium (Porcine) 5,000 unit 04/24/20 06:00 04/25/20 13:03 Heparin - SQ Not Given TID [facility] Lorazepam 1 mg 04/27/20 05:00 Ativan - PO 04/27/20 23:01 [id number] [facility] Lorazepam 1 mg 04/25/20 17:54 Ativan - PO 04/27/20 23:59 Q4H PRN Symptoms of Withdrawal Lorazepam 0.5 mg 04/28/20 05:00 Ativan - PO 04/28/20 23:01 Q6H [facility] Lorazepam 0.5 mg 04/28/20 00:00 Ativan - PO 04/29/20 00:00 Q4H PRN Symptoms of Withdrawal Lorazepam 0.5 mg 04/29/20 05:00 Ativan - PO 04/29/20 05:01 ONCE ONE Lorazepam 2 mg 04/25/20 18:04 Ativan - PO 04/26/20 23:01 [id number],[id number] [facility] ASSESSMENT/PLAN: 49yo M with PHx of polysubstance abuse (heroin, cocaine, alcohol, tobacco), HIV (on Genvoya - noncompliant), and HTN sent over from [facility] because they heard a murmur on physical exam. Of note, the patient has had a murmur since childhood and had an ASD repair at age of 11yo. Patient currently takes suboxone TID. ED workup included: EKG showed T wave inversions in V4 and V5 which resolved on repeat EKG and prolonged QTc, and a CXR that showed no acute lung disease. Trops were negative x2, CK-MB 5.1, and BMP/coags/LFTs were WNL. Patient admitted for treatment of withdrawal. #Polysubstance abuse monitor for withdrawal - started librium protocol - started home dose suboxone (dose verified with [employer]) suboxone is only med patient received today - ?refused all others #Heart murmur likely secondary to childhood hx of ASD s/p repair and lifelong hx of a heart murmur need to r/o ACS: CXR unremarkable EKG T wave changes resolved trops unremarkable Echo unremarkable per cardio consult: patient is stable and can discontinue cardiac telemetry. Appreciated recs #mild leukopenia likely secondary to HIV in setting of medical noncompliance (vs alcohol use disorder) - ID consult for HIV management - CD4/CD8/CD3 pending: assessing need for PPX abx (? <200 bactrim, <50 add azithromycin ?) - COVID pending - airborne, droplet and contact isolation (patient was lying in the ED hallway on a stretcher and walking around the ED) #HTN currently on no medication - may consider amlodipine if BP continues to rise (CCBs are first-line in AAs) #Anemia (multifactorial?) - may consider serial stool guaiacs - may consider reticulocyte count - may consider iron studies (TIBC, ferritin, serum iron) #hypoalbuminemia (malnutrition vs inflammation) - nutrition consult (increase protein intake) #FED - no standing fluids - replete lytes PRN - sodium controlled diet #PPX - DVT: SQ heparin #Dispo: currently seems that there is not much that can be done for patient - d/c to [facility]. If no beds available, patient would have passed the alcohol withdrawal window by Wednesday and could then be d/c'd home Visit type - Emergency Visit Emergency Visit: Yes ED Registration Date: 04/23/20 Care time: The patient presented to the Emergency Department on the above date and was hospitalized for further evaluation of their emergent condition. - New Patient This patient is new to me today: No - Critical Care Critical Care patient: No ATTENDING PHYSICIAN STATEMENT I saw and evaluated the patient. I reviewed the resident's note and discussed the case with the resident. I agree with the resident's findings and plan as documented. SUBJECTIVE: OBJECTIVE: ASSESSMENT AND PLAN:
[2020-04-25] MEDS: LORazepam 1 MG TABLET PO SCH (22:15)
[2020-04-26] MEDS ORDERED: chlordiazePOXIDE 5 MG CAPSULE PO SCH (05:00)
[2020-04-26] MEDS: LORazepam 1 MG TABLET PO SCH ×4 (05:48→22:03)
[2020-04-26] MEDS: BUPRENORPHINE/NALOXONE 8 MG/2 MG FILM PACKET SL SCH ×3 (05:49→21:28)
[2020-04-26] MEDS: HEPARIN NA (PORCINE) 5,000 UNITS/ML 1ML VIAL SQ SCH ×4 (05:50→22:04)
[2020-04-26 06:50] LABS: BASO % 1.2 % (0-2.0); EOS % 18.8 % (0-4.5); HEMATOCRIT 39.2 % (35.4-49); HEMOGLOBIN 12.3 GM/dL (11.7-16.9); LYMPH % 38.2 % (8-40); MCH 27.4 pg (25.7-33.7); MCHC 31.4 g/dl (32.0-35.9); MEAN CELL VOLUME 87.5 fl (80-96); MEAN PLT VOLUME 8.9 fl (7.5-11.1); MONO % 15.4 % (3.8-10.2); NEUT % 26.4 % (42.8-82.8); PLATELET COUNT 199 K/MM3 (134-434); RBC 4.48 M/mm3 (4.00-5.60); RDW 13.9 % (11.9-15.9)
[2020-04-26 07:13] LABS: ALBUMIN 2.9 g/dl (3.4-5.0); BILIRUBIN,TOTAL 0.4 mg/dL (0.2-1); BLOOD UREA NITROGEN 15.8 mg/dL (7-18); CALCIUM 8.2 mg/dL (8.5-10.1); CREATININE 0.9 mg/dL (0.55-1.3); MAGNESIUM 1.9 mg/dL (1.8-2.4); PHOSPHOROUS 4.1 mg/dL (2.5-4.9); POTASSIUM 3.9 mmol/L (3.5-5.1); TOT PROT 6.9 g/dl (6.4-8.2)
--- NOTE | 2020-04-26 08:57 | PN ---
Progress Note, Physician Chief Complaint: Pt A&ox3; denies chest pain or dyspnea. Closes his eyes; offers little other communication. History of Present Illness: Mr. Elias is a 49 year old black man with a PMH of HTN, HIV disease (nonadherent with medications), Polysubstance abuse (opiate use, heroin use, cocaine, alc ohol) and Tobacco use, now sent from [facility] because a murmur was heard on physical examination. The patient was uncooperative to questioning. He reports that the last time he used cocaine and heroin was yesterday. He denies trauma, and states that he takes the heroin and cocaine by nose. Also takes Suboxone - last use 2 days ago. Denies ever having delirium tremens or a seizure when withdrawing. He admits to diarrhea. He also reports that he has been told he has a murmur his entire life. Patient denies chest pain, shortness of breath, abdominal pain, headache, palpitations, dizziness, fever, chills, nausea, vomiting, constipation, dysuria, frequency, urgency, melena, hematochezia or hematuria. No sick contacts or recent travels. Family history is unremarkable. No chest pain. Pt says he walks regularly, and denies exertional chest pain or dyspnea; no leg swelling. - Current Medication List Current Medications: Active Medications Buprenorphine/Naloxone (Suboxone 8 Mg/2 Mg Film Packet) 1 each SL TID [facility] Last Admin: 04/26/20 05:49 Dose: 1 each Documented by: Heparin Sodium (Porcine) (Heparin -) 5,000 unit SQ TID [facility] Last Admin: 04/26/20 05:50 Dose: Not Given Documented by: Lorazepam (Ativan -) 1 mg PO 0500,1100,1700,2300 [facility] Stop: 04/27/20 23:01 Lorazepam (Ativan -) 1 mg PO Q4H PRN PRN Reason: Symptoms of Withdrawal Stop: 04/27/20 23:59 Lorazepam (Ativan -) 0.5 mg PO Q6H [facility] Stop: 04/28/20 23:01 Lorazepam (Ativan -) 0.5 mg PO Q4H PRN PRN Reason: Symptoms of Withdrawal Stop: 04/29/20 00:00 Lorazepam (Ativan -) 0.5 mg PO ONCE ONE Stop: 04/29/20 05:01 Lorazepam (Ativan -) 2 mg PO 0500,1100,1700,2300 [facility] Stop: 04/26/20 23:01 Last Admin: 04/26/20 05:48 Dose: 2 mg Documented by: - Objective Vital Signs: Vital Signs Temperature 98.1 F 04/26/20 02:19 Pulse Rate 63 04/26/20 02:19 Respiratory Rate 20 04/26/20 06:00 Blood Pressure 134/94 04/26/20 06:00 O2 Sat by Pulse Oximetry (%) 100 04/25/20 23:00 Constitutional: Yes: Calm Eyes: Yes: WNL HENT: Yes: WNL Neck: Yes: WNL Cardiovascular: Yes: S1, S2, S4 ...Rectal Exam: Yes: Deferred Genitourinary: No: Anuria Musculoskeletal: Yes: WNL Edema: No Peripheral Pulses WNL: Yes Integumentary: Yes: WNL Neurological: Yes: WNL ...Motor Strength: WNL Psychiatric: Yes: Other (addictions) Labs: CBC, BMP 04/26/20 05:45 04/26/20 05:45 INR, PTT INR 0.92 (0.83-1.09) 04/23/20 19:30 Abnormal Lab Results 04/26/20 04/26/20 05:45 05:45 WBC 2.0 L MCHC 31.4 L Absolute Neuts (auto) 0.5 L Neutrophils % 26.4 L D Monocytes % 15.4 H Eosinophils % 18.8 H D Chloride 109 H Anion Gap 6 L Calcium 8.2 L Albumin 2.9 L Assessment/Plan HTN, HIV disease (nonadherent with medications), Polysubstance abuse (opiate use, heroin use, cocaine, alcohol) and Tobacco use sent from [facility] because a murmur was heard on physical examination. ECHO: Normal LVEF; abnormal diastolic compliance; mild TR; trace MR; no significant valvular pathology. TNI < 0.02 x 2. Acute/chronic leukopenia Plan DVT plx cardiac brown stable Discontinued cardiac telemetry. Treatment as per ID and detox protocol. F/u BP serially (occasionally elevated). Avoid beta blockers (active cocaine abuse). F/u etiology of leukopenia
--- NOTE | 2020-04-26 13:24 | PN ---
Physical Exam: SUBJECTIVE: Patient seen and examined bedside. Resting. In no distress. No events overnight. Patient denies any n/v/d, sweats, chest pain, or sob. OBJECTIVE: Vital Signs Vital Signs - 8 hr 04/26/20 04/26/20 04/26/20 06:00 07:00 10:00 Temperature 98.8 F Pulse Rate 70 Respiratory 20 20 Rate Blood Pressure 134/94 131/87 O2 Sat by Pulse 94 L 94 L Oximetry (%) GENERAL: in no acute distress. A&O x 3. HEAD: Normal with no signs of trauma EYES: PERRL, direct and consensual reflex intact, sclera anicteric, conjunctiva clear LUNGS: CTA BL, breath sounds equal BL HEART: RRR, S1 S2 no murmur appreciated ABDOMEN: Soft, nontender, nondistended EXTREMITIES: 2+ pulses, warm, well-perfused, no edema. NEUROLOGICAL: Cranial nerves II through XII grossly intact. Normal speech PSYCH: flat affect SKIN: Warm, no rashes or lesions noted Laboratory Results - last 24 hr 04/25/20 04/26/20 04/26/20 08:30 05:45 05:45 WBC 1.9 L 2.0 L RBC 4.48 Hgb 12.3 Hct 39.2 MCV 87.5 MCH 27.4 MCHC 31.4 L RDW 13.9 Plt Count 199 MPV 8.9 Absolute Neuts (auto) 0.5 L Absolute Lymphs (auto) 0.7 Neutrophils % 26.4 L D Lymphocytes % 38.2 Monocytes % 15.4 H Eosinophils % 18.8 H D Basophils % 1.2 Nucleated RBC % 0 Lymphocytes 38 Nucleated RBCs TNP Sodium 143 Potassium 3.9 Chloride 109 H Carbon Dioxide 27 Anion Gap 6 L BUN 15.8 Creatinine 0.9 Est GFR (CKD-EPI)AfAm 117.47 Est GFR (CKD-EPI)NonAf 101.35 Random Glucose 95 Calcium 8.2 L Phosphorus 4.1 Magnesium 1.9 Total Bilirubin 0.4 AST 17 ALT 18 Alkaline Phosphatase 48 Total Protein 6.9 Albumin 2.9 L Absolute CD3 Count 491 L % CD3+ Lymphocytes 70.2 Absolute CD4 [place] 137 L % CD4+ Lymphocyte 19.5 L CD4/CD8 Ratio 0.39 L % CD8+ Lymphocyte 49.7 H Absolute CD8 Count 348 Active Medications Generic Name Dose Route Start Last Admin Trade Name Freq PRN Reason Stop Dose Admin Buprenorphine/Naloxone 1 each 04/24/20 22:00 04/26/20 05:49 Suboxone 8 Mg/2 Mg Film Packet SL 1 each TID [facility] Administration Heparin Sodium (Porcine) 5,000 unit 04/24/20 06:00 04/26/20 05:50 Heparin - SQ Not Given TID [facility] Lorazepam 1 mg 04/27/20 05:00 Ativan - PO 04/27/20 23:01 0500,1100,1700,2300 [facility] Lorazepam 1 mg 04/25/20 17:54 Ativan - PO 04/27/20 23:59 Q4H PRN Symptoms of Withdrawal Lorazepam 0.5 mg 04/28/20 05:00 Ativan - PO 04/28/20 23:01 Q6H [facility] Lorazepam 0.5 mg 04/28/20 00:00 Ativan - PO 04/29/20 00:00 Q4H PRN Symptoms of Withdrawal Lorazepam 0.5 mg 04/29/20 05:00 Ativan - PO 04/29/20 05:01 ONCE ONE Lorazepam 2 mg 04/25/20 18:04 04/26/20 11:36 Ativan - PO 04/26/20 23:01 2 mg 0500,1100,1700,2300 [facility] Administration ASSESSMENT/PLAN: 49yo M with PHx of polysubstance abuse (heroin, cocaine, alcohol, tobacco), HIV (on Genvoya - noncompliant), and HTN sent over from [facility] because they heard a murmur on physical exam. Of note, the patient has had a murmur since childhood and had an ASD repair at age of 11yo. Patient currently takes suboxone TID. ED workup included: EKG showed T wave inversions in V4 and V5 which resolved on repeat EKG and prolonged QTc, and a CXR that showed no acute lung disease. Trops were negative x2, CK-MB 5.1, and BMP/coags/LFTs were WNL. Patient admitted for treatment of withdrawal. Polysubstance abuse - Ativan protocol - started home dose suboxone (dose verified with [employer]) - no detox beds at [facility] for today - patient should be through withdrawal by Wednesday for discharge home or to re hab if he wants HIV, non compliant with HAART, CD4 count < 200 - ID consult for HIV management (Dr. Arevalo) can resume Genvoya if patient wishes - Patient wants to restart Genvoya (elvitegravir, cobicistat, emtriciavine & tenofovir alafenamide) - pharmacy only has Striblid (which is the same except tenofovir disoproxil fumarate) >> defer to ID - CD4 count 137 >> start prophylactic TMP-SMX po daily - COVID negative Heart murmur: 2/2 childhood hx of ASD s/p repair and lifelong hx of a heart murmur - EKG T wave changes resolved - Echo unremarkable - per cardio consult: patient is stable and can discontinue cardiac telemetry. HTN currently on no medication - may consider amlodipine if BP continues to rise (CCBs are first-line in AAs) Anemia (multifactorial?) - may consider serial stool guaiacs - may consider reticulocyte count - may consider iron studies (TIBC, ferritin, serum iron) Hypoalbuminemia: 2/2 (malnutrition vs inflammation) - nutrition consult (increase protein intake) FED - no standing fluids - replete lytes PRN - sodium controlled diet PPX - SQ heparin Visit type - Emergency Visit Emergency Visit: Yes ED Registration Date: 04/26/20 Care time: The patient presented to the Emergency Department on the above date and was hospitalized for further evaluation of their emergent condition. - New Patient This patient is new to me today: No - Critical Care Critical Care patient: No - Discharge Referral Referred to [facility] Med P.C.: No ATTENDING PHYSICIAN STATEMENT I saw and evaluated the patient. I reviewed the resident's note and discussed the case with the resident. I agree with the resident's findings and plan as documented. SUBJECTIVE: OBJECTIVE: ASSESSMENT AND PLAN:
--- NOTE | 2020-04-26 13:58 | PN ---
Teaching Attending Note Name of Resident: Daly Burnett ATTENDING PHYSICIAN STATEMENT I saw and evaluated the patient. I reviewed the resident's note and discussed the case with the resident. I agree with the resident's findings and plan as documented. SUBJECTIVE: Patient feels well, does not want inpatient rehab No tremors this morning on exam OBJECTIVE: Vital Signs Period Temp Pulse Resp BP Sys/Mathew Pulse Ox Last 24 Hr 97.9 F-98.8 F 48-70 20-20 119-142/77-99 94-100 GENERAL: Awake, alert, and fully oriented, in no acute distress. HEAD: Normal with no signs of trauma. EYES: Pupils equal, round and reactive to light, extraocular movements intact, sclera anicteric, conjunctiva clear. No lid lag. EARS, NOSE, THROAT: Ears normal, nares patent, oropharynx clear without exudates. Moist mucous membranes. NECK: Normal range of motion, supple without lymphadenopathy, JVD, or masses. LUNGS: Breath sounds equal, clear to auscultation bilaterally. No wheezes, and no crackles. No accessory muscle use. HEART: Regular rate and rhythm, normal S1 and S2 without murmur, rub or gallop. ABDOMEN: Soft, nontender, not distended, normoactive bowel sounds, no guarding, no rebound, no masses. No hepatomegaly or splenomegaly. MUSCULOSKELETAL: Normal range of motion at all joints. No bony deformities or tenderness. UPPER EXTREMITIES: 2+ pulses, warm, well-perfused. No cyanosis. No clubbing. No peripheral edema. LOWER EXTREMITIES: 2+ pulses, warm, well-perfused. No calf tenderness. No peripheral edema. NEUROLOGICAL: Cranial nerves II-XII intact. Normal speech. Normal gait. PSYCHIATRIC: Cooperative. Good eye contact. Appropriate mood and affect. SKIN: Warm, dry, normal turgor, no rashes or lesions noted. ASSESSMENT AND PLAN: 49 y/o M with PMH HTN, HIV disease (nonadherent with medications), Polysubstance abuse (opiate use, heroin use, cocaine, alcohol) and Tobacco use, now sent from [facility] because a murmur was heard on physical examination. heart murmur: Echo reviewed, unremarkable patient does not have any signs/symptoms of endocarditis to [facility] at this time Polysubstance abuse continue Suboxone Continue to monitor patient for ETOh withdrawal--PRN Ativan Pt does not like librium plan to discharge to Inpatient rehab HIV with CD 4 count 137 Start PPx with bactrim for OI at this time Restart HAART
[2020-04-26] MEDS: SULFAMETHOXAZOLE/TRIMETHOPRIM 800MG/160MG D.S. TABLET PO SCH (16:26)
[2020-04-26] MEDS ORDERED: LORazepam 1 MG TABLET PO PRN (17:28)
[2020-04-27] MEDS ORDERED: chlordiazePOXIDE HCL 10 MG CAPSULE PO PRN
[2020-04-27] MEDS ORDERED: chlordiazePOXIDE HCL 10 MG CAPSULE PO SCH (05:00)
[2020-04-27] MEDS ORDERED: LORazepam 1 MG TABLET PO SCH (05:00)
[2020-04-27] MEDS: LORazepam 1 MG TABLET PO SCH ×5 (05:52→22:39)
[2020-04-27] MEDS: HEPARIN NA (PORCINE) 5,000 UNITS/ML 1ML VIAL SQ SCH ×4 (05:56→21:53)
[2020-04-27] MEDS: BUPRENORPHINE/NALOXONE 8 MG/2 MG FILM PACKET SL SCH ×3 (06:46→21:10)
[2020-04-27 07:47] LABS: HEMATOCRIT 39.9 % (35.4-49); HEMOGLOBIN 12.8 GM/dL (11.7-16.9); MCH 28.1 pg (25.7-33.7); MEAN CELL VOLUME 87.6 fl (80-96); MEAN PLT VOLUME 9.1 fl (7.5-11.1); PLATELET COUNT 202 K/MM3 (134-434); RBC 4.55 M/mm3 (4.00-5.60); RDW 14.1 % (11.9-15.9); WHITE BLOOD COUNT 2.2 K/mm3 (4.0-10.0)
[2020-04-27 08:06] LABS: BLOOD UREA NITROGEN 16.1 mg/dL (7-18); CALCIUM 8.6 mg/dL (8.5-10.1); PHOSPHOROUS 3.8 mg/dL (2.5-4.9); POTASSIUM 4.2 mmol/L (3.5-5.1)
[2020-04-27] MEDS: SULFAMETHOXAZOLE/TRIMETHOPRIM 800MG/160MG D.S. TABLET PO SCH (09:48)
--- NOTE | 2020-04-27 15:14 | PN ---
Teaching Attending Note Name of Resident: Luisana Novoa ATTENDING PHYSICIAN STATEMENT I saw and evaluated the patient. I reviewed the resident's note and discussed the case with the resident. I agree with the resident's findings and plan as documented. SUBJECTIVE: Vital Signs Period Temp Pulse Resp BP Sys/Mathew Pulse Ox Last 24 Hr 97.3 F-98.9 F 69-109 20-20 91-139/57-84 94-100 Heent nad neck supple lungs clear heart no change ext no edema algebra tutor no acute weakness non focal OBJECTIVE: ASSESSMENT AND PLAN: 49 y/o M with H HTN, HIV disease (nonadherent with medications), Polysubstance abuse (opiate use, heroin use, cocaine, alcohol) and Tobacco use, now sent from [facility] because a murmur was heard on physical examination. Polysubstance abuse continue Suboxone Continue to monitor patient for ETOh withdrawal--PRN Ativan Pt does not like librium plan to discharge to Inpatient rehab at [facility] he is stable discharge order put in T
--- NOTE | 2020-04-27 17:36 | DS ---
Physical Exam: SUBJECTIVE: Patient seen and examined, denied pain, NVD, dizziness, chills, fever. Endorsed his desire to return to [facility] for rehabilitation. Also explained that we would like to re-start his antiviral regimen. MICHELLE. OBJECTIVE: Vital Signs Period Temp Pulse Resp BP Sys/Mathew Pulse Ox Last 24 Hr 97.3 F-98.9 F 68-109 20-20 91-147/57-84 94-100 PHYSICAL EXAM GENERAL: cachectic, AAM, somnolent, easily arousable but remains sleepy with eyes closed, in no acute distress HEAD: Normal with no signs of trauma. poor dentition, old healed scar on lower lip EYES: PERRL, direct and consensual reflex intact, sclera anicteric, conjunctiva clear, No ptosis LUNGS: CTAB, no wheezing appreciated HEART: RRR, S1 S2 - I was unable to appreciated the murmur ABDOMEN: Soft, nontender, nondistended, hypoactive BS EXTREMITIES: 2+ pulses, warm, well-perfused, no edema. NEUROLOGICAL: Cranial nerves II through XII grossly intact. Normal speech PSYCH: flat affect, hypoverbal SKIN: Warm, no rashes or lesions noted LABS Laboratory Results - last 24 hr 04/27/20 04/27/20 06:50 06:50 WBC 2.2 L RBC 4.55 Hgb 12.8 Hct 39.9 MCV 87.6 MCH 28.1 MCHC 32.0 RDW 14.1 Plt Count 202 MPV 9.1 Sodium 142 Potassium 4.2 Chloride 109 H Carbon Dioxide 24 Anion Gap 8 BUN 16.1 Creatinine 1.0 Est GFR (CKD-EPI)AfAm 103.42 Est GFR (CKD-EPI)NonAf 89.23 Random Glucose 83 Calcium 8.6 Phosphorus 3.8 Magnesium 2.0 HOSPITAL COURSE: 49yo M with PHx of polysubstance abuse (heroin, cocaine, alcohol, tobacco), HIV (on Genvoya - noncompliant), and HTN sent over from [facility] because they heard a murmur on physical exam. Of note, the patient has had a murmur since childhood and had an ASD repair at age of 11yo. Patient currently takes suboxone TID. ED workup included: EKG showed T wave inversions in V4 and V5 which resolved on repeat EKG and prolonged QTc, and a CXR that showed no acute lung disease. Trops were negative x2, CK-MB 5.1, and BMP/coags/LFTs were WNL. Patient admitted for treatment of withdrawal. During his stay, patient was treated with the ativan protocol and suboxone, and he was followed by cardiology and ID. Patient remained stable, endorses desire to return to [facility] for rehabilitation, and has been optimized for discharge. Date of Admission:04/26/20 Date of Discharge: 04/27/20 Minutes to complete discharge: 37 Discharge Summary Problems reviewed: Yes Reason For Visit: ALCOHOL DEPENDENCE,OPIOID DEPENDENCE, Current Active Problems Alcohol dependence (Acute) Eosinophilia (Acute) Murmur (Acute) Opiate dependence (Acute) Polysubstance abuse (Acute) Cocaine dependence, uncomplicated (Chronic) Condition: Stable - Instructions Diet, Activity, Other Instructions: Hospital course: You came to the hospital on 04/23/20 from [facility] because they heard a murmur on your cardiac exam. You told us that you have had this murmur your entire life, and that you had an ASD repair when you were a child. We did some tests to make sure your heart is in good condition, and we also continued you on your detox medications to help you with both alcohol and cocaine withdrawal. Over your hospital stay, you remained, stable. You also expressed the desire to return to [facility] for rehabilitation. While in the hospital, you were also seen by an infectious disease doctor who said that you can re-start you HIV medication. Medications: please continue your medications - Suboxone 8mg/2mg three times per day - Bactrim 1tab once per day Follow-up - you will be following up with Dr. Mckinley at [facility] who will help you with the rehabilitation process - please follow up with your infectious disease doctor to make sure you are taking you HIV medication and antibiotics regularly Activity/Exercise: You can move around and be active as much as you can tolerate. Other instructions: If you are experiencing any shortness of breath, palpitations, chest pain, fevers, chills, or any other concerning symptoms, please go to your nearest emergency room or call 911. Referrals: Jayme Mckinley DO [Staff Physician] - 04/29/20 Disposition: TRANSFER ACUTE CARE/OTHER HOSP - Home Medications Comprehensive Discharge Medication List: Ambulatory Orders Elviteg/Cob/Emtri/Tenof Alafen [Genvoya (Non-Formulary)] 1 each PO DAILY 05/20/17 Buprenorphine/Naloxone [Suboxone 8Mg/2Mg Sl Film -] 1 each SL TID 04/23/20 Sulfamethoxazole/Trimethoprim [Bactrim DS -] 1 each PO DAILY 30 Days #30 tablet 04/27/20 This patient is new to me today: No Emergency Visit: Yes ED Registration Date: 04/26/20 Care time: The patient presented to the Emergency Department on the above date a nd was hospitalized for further evaluation of their emergent condition. Critical Care patient: No - Discharge Referral [facility] No ATTENDING PHYSICIAN STATEMENT I saw and evaluated the patient. I reviewed the resident's note and discussed the case with the resident. I agree with the resident's findings and plan as documented. SUBJECTIVE: OBJECTIVE: ASSESSMENT AND PLAN:
[2020-04-28] MEDS ORDERED: LORazepam 0.5 MG TABLET PO PRN ×2
[2020-04-28] MEDS ORDERED: LORazepam 0.5 MG TABLET PO SCH (05:00)
[2020-04-28] MEDS ORDERED: chlordiazePOXIDE HCL 10 MG CAPSULE PO ONE (05:00)
[2020-04-28] MEDS: BUPRENORPHINE/NALOXONE 8 MG/2 MG FILM PACKET SL SCH ×3 (05:57→21:01)
[2020-04-28] MEDS: LORazepam 0.5 MG TABLET PO SCH ×4 (05:58→23:41)
[2020-04-28] MEDS: HEPARIN NA (PORCINE) 5,000 UNITS/ML 1ML VIAL SQ SCH ×3 (05:58→21:01)
[2020-04-28 07:40] LABS: BASO % 1.7 % (0-2.0); EOS % 24.8 % (0-4.5); HEMATOCRIT 40.5 % (35.4-49); HEMOGLOBIN 12.9 GM/dL (11.7-16.9); LYMPH % 30.7 % (8-40); MCH 27.8 pg (25.7-33.7); MCHC 31.9 g/dl (32.0-35.9); MEAN CELL VOLUME 87.2 fl (80-96); MEAN PLT VOLUME 8.6 fl (7.5-11.1); NEUT % 23.8 % (42.8-82.8); PLATELET COUNT 202 K/MM3 (134-434); RBC 4.65 M/mm3 (4.00-5.60); RDW 13.8 % (11.9-15.9); WHITE BLOOD COUNT 2.4 K/mm3 (4.0-10.0)
[2020-04-28 08:13] LABS: ALBUMIN 3.2 g/dl (3.4-5.0); BILIRUBIN,TOTAL 0.4 mg/dL (0.2-1); BLOOD UREA NITROGEN 14.5 mg/dL (7-18); CALCIUM 8.9 mg/dL (8.5-10.1); CREATININE 0.9 mg/dL (0.55-1.3); MAGNESIUM 2.1 mg/dL (1.8-2.4); POTASSIUM 4.3 mmol/L (3.5-5.1); TOT PROT 7.5 g/dl (6.4-8.2)
[2020-04-28] MEDS: SULFAMETHOXAZOLE/TRIMETHOPRIM 800MG/160MG D.S. TABLET PO SCH (09:23)
[2020-04-28 12:38] LABS: ANISOCYTOSIS 0; MACROCYTOSIS 0; PLATELET ESTIMATE NORMAL
--- NOTE | 2020-04-28 12:48 | PN ---
Physical Exam: SUBJECTIVE: Patient seen and examined He is comfortable has no symptoms. OBJECTIVE: Vital Signs Period Temp Pulse Resp BP Sys/Mathew Pulse Ox Last 24 Hr 97.3 F-99 F 68-109 18-20 91-147/57-85 95-100 Patient is comfortable HEENT normal Neck supple no JVD Lungs clear no wheezing Abdomen nontender no organomegaly bowel sounds normal Extremities no edema no cyanosis normal pulses Neurologically he is alert awake oriented, nonfocal Skin no rash noted Laboratory Results - last 24 hr 04/28/20 04/28/20 06:45 06:45 WBC 2.4 L RBC 4.65 Hgb 12.9 Hct 40.5 MCV 87.2 MCH 27.8 MCHC 31.9 L RDW 13.8 Plt Count 202 MPV 8.6 Absolute Neuts (auto) 0.6 L Neutrophils % 23.8 L Lymphocytes % 30.7 Monocytes % 19.0 H Eosinophils % 24.8 H* Basophils % 1.7 Nucleated RBC % 0 Sodium 138 Potassium 4.3 Chloride 107 Carbon Dioxide 28 Anion Gap 3 L BUN 14.5 Creatinine 0.9 Est GFR (CKD-EPI)AfAm 117.47 Est GFR (CKD-EPI)NonAf 101.35 Random Glucose 91 Calcium 8.9 Phosphorus 4.0 Magnesium 2.1 Total Bilirubin 0.4 AST 20 ALT 33 Alkaline Phosphatase 51 Total Protein 7.5 Albumin 3.2 L Active Medications Generic Name Dose Route Start Last Admin Trade Name Freq PRN Reason Stop Dose Admin Buprenorphine/Naloxone 1 each 04/26/20 22:00 04/28/20 05:57 Suboxone 8 Mg/2 Mg Film Packet SL 1 each TID [facility] Administration Heparin Sodium (Porcine) 5,000 unit 04/26/20 22:00 04/28/20 05:58 Heparin - SQ Not Given TID [facility] Lorazepam 0.5 mg 04/29/20 05:00 Ativan - PO 04/29/20 05:01 ONCE ONE Lorazepam 0.5 mg 04/28/20 00:00 Ativan - PO 04/29/20 00:00 Q4H PRN Symptoms of Withdrawal Lorazepam 0.5 mg 04/28/20 05:00 04/28/20 11:12 Ativan - PO 04/28/20 23:01 0.5 mg Q6H [facility] Administration Trimethoprim/Sulfamethoxazole 1 each 04/26/20 15:30 04/28/20 09:23 Bactrim Ds - PO 1 each DAILY [facility] Administration ASSESSMENT/PLAN: 49 y/o M with PMH HTN, HIV disease (nonadherent with medications), Polysubstance abuse (opiate use, heroin use, cocaine, alcohol) and Tobacco use, now sent from [facility] because a murmur was heard on physical examination. Polysubstance abuse continue Suboxone plan to discharge to Inpatient rehab at [facility] he is stable discharge order put in and he will leave once bed is available correctional casework specialist is aware of that Visit type - Emergency Visit Emergency Visit: Yes ED Registration Date: 04/26/20 Care time: The patient presented to the Emergency Department on the above date and was hospitalized for further evaluation of their emergent condition. - New Patient This patient is new to me today: No - Critical Care Critical Care patient: No - Discharge Referral Referred to [facility] Med P.C.: No
--- NOTE | 2020-04-28 13:05 | PN ---
Progress Note (short form) - Note Progress Note: asked to f/u for ART treatment- requesting new regimen was on genvoya in the past explained that this should be done by his clinic in [place] after review of his resistance tests and prior meds- can resume genvoya at [facility] if he goes to rehab cd4 -137 would add mepron for pcp prophylaxis-g6pd status unknown and he is too leukopenic for bactrim at this time eosinophilia- no rash- should be worked up as outpt as well- no diarrhea- would send strongyloides antibody and stool ova and parasites-may need hematology evaluation as outpt 2 Problem List - Problems (1) Murmur Code(s): R01.1 - CARDIAC MURMUR, UNSPECIFIED (2) HIV (human immunodeficiency virus infection) Code(s): Z21 - ASYMPTOMATIC HUMAN IMMUNODEFICIENCY VIRUS INFECTION STATUS Qualifiers: HIV symptom status: unspecified Qualified Code(s): B20 - Human immunodeficiency virus [HIV] disease (3) Polysubstance abuse Code(s): F19.10 - OTHER PSYCHOACTIVE SUBSTANCE ABUSE, UNCOMPLICATED (4) Eosinophilia Code(s): D72.1 - EOSINOPHILIA
--- NOTE | 2020-04-28 14:59 | PN ---
Progress Note, Physician Chief Complaint: Pt A&ox3; denies chest pain or dyspnea. Flat affect History of Present Illness: Mr. Elias is a 49 year old black man with a PMH of HTN, HIV disease (nonadherent with medications), Polysubstance abuse (opiate use, heroin use, cocaine, alcohol) and Tobacco use, anxiety/depression, now sent from [facility] because a murmur was heard on physical examination. The patient was uncooperative to questioning. He reports that the last time he used cocaine and heroin was yesterday. He denies trauma, and states that he takes the heroin and cocaine by nose. Also takes Suboxone - last use 2 days ago. Denies ever having delirium tremens or a seizure when withdrawing. He admits to diarrhea. He also reports that he has been told he has a murmur his entire life. Patient denies chest pa in, shortness of breath, abdominal pain, headache, palpitations, dizziness, fever, chills, nausea, vomiting, constipation, dysuria, frequency, urgency, melena, hematochezia or hematuria. No sick contacts or recent travels. Family history is unremarkable. No chest pain. Pt says he walks regularly, and denies exertional chest pain or dyspnea; no leg swelling. - Current Medication List Current Medications: Active Medications Atovaquone (Mepron -) 1,500 mg PO DAILY@0800 [facility] Buprenorphine/Naloxone (Suboxone 8 Mg/2 Mg Film Packet) 1 each SL TID [facility] Last Admin: 04/28/20 13:32 Dose: 1 each Documented by: Heparin Sodium (Porcine) (Heparin -) 5,000 unit SQ TID [facility] Last Admin: 04/28/20 13:05 Dose: Not Given Documented by: Lorazepam (Ativan -) 0.5 mg PO ONCE ONE Stop: 04/29/20 05:01 Lorazepam (Ativan -) 0.5 mg PO Q4H PRN PRN Reason: Symptoms of Withdrawal Stop: 04/29/20 00:00 Lorazepam (Ativan -) 0.5 mg PO Q6H [facility] Stop: 04/28/20 23:01 Last Admin: 04/28/20 11:12 Dose: 0.5 mg Documented by: Trimethoprim/Sulfamethoxazole (Bactrim Ds -) 1 each PO DAILY [facility] Last Admin: 04/28/20 09:23 Dose: 1 each Documented by: - Objective Vital Signs: Vital Signs Temperature 98.5 F 04/28/20 13:58 Pulse Rate 72 04/28/20 13:58 Respiratory Rate 20 04/28/20 13:58 Blood Pressure 131/74 04/28/20 13:58 O2 Sat by Pulse Oximetry (%) 98 04/28/20 13:58 Labs: CBC, BMP 04/28/20 06:45 04/28/20 06:45 INR, PTT INR 0.92 (0.83-1.09) 04/23/20 19:30 Assessment/Plan HTN, HIV disease (nonadherent with medications), Polysubstance abuse (opiate use, heroin use, cocaine, alcohol) and Tobacco use sent from [facility] because a murmur was heard on physical examination. ECHO: Normal LVEF; abnormal diastolic compliance; mild TR; trace MR; no significant valvular pathology. TNI < 0.02 x 2. Acute/chronic leukopenia Plan DVT plx cardiac brown stable Treatment as per ID and detox protocol. F/u BP serially (occasionally elevated). Avoid beta blockers (active cocaine abuse). F/u etiology of leukopenia
--- NOTE | 2020-04-28 15:06 | PN ---
Progress Note, Physician Chief Complaint: Pt A&ox3; denies chest pain or dyspnea. Flat affect. Has issues with HIV and anxiety medications, but says he has not been following up with doctors outside. Denies having seen a psychiatrist or psychologist. History of Present Illness: Mr. Elias is a 49 year old black man with a PMH of HTN, HIV disease (nonadherent with medications), Polysubstance abuse (opiate use, heroin use, cocaine, alcohol) and Tobacco use, anxiety/depression, now sent from [facility] because a murmur was heard on physical examination. The patient was uncooperative to questioning. He reports that the last time he used cocaine and heroin was yesterday. He denies trauma, and states that he takes the heroin and cocaine by nose. Also takes Suboxone - last use 2 days ago. Denies ever having delirium tremens or a seizure when withdrawing. He admits to diarrhea. He also reports that he has been told he has a murmur his entire life. Patient denies chest pain, shortness of breath, abdominal pain, headache, palpitations, dizziness, fever, chills, nausea, vomiting, constipation, dysuria, frequency, urgency, melena, hematochezia or hematuria. No sick contacts or recent travels. Family history is unremarkable. No chest pain. Pt says he walks regularly, and denies exertional chest pain or dyspnea; no leg swelling. - Current Medication List Current Medications: Active Medications Atovaquone (Mepron -) 1,500 mg PO DAILY@0800 [facility] Buprenorphine/Naloxone (Suboxone 8 Mg/2 Mg Film Packet) [address] [facility] Last Admin: 04/28/20 13:32 Dose: 1 each Documented by: Heparin Sodium (Porcine) (Heparin -) 5,[address] [facility] Last Admin: 04/28/20 13:05 Dose: Not Given Documented by: Lorazepam (Ativan -) 0.5 mg PO ONCE ONE Stop: 04/29/20 05:01 Lorazepam (Ativan -) 0.5 mg PO Q4H PRN PRN Reason: Symptoms of Withdrawal Stop: 04/29/20 00:00 Lorazepam (Ativan -) 0.[address] [facility] Stop: 04/28/20 23:01 Last Admin: 04/28/20 11:12 Dose: 0.5 mg Documented by: Trimethoprim/Sulfamethoxazole (Bactrim Ds -) 1 each PO DAILY [facility] Last Admin: 04/28/20 09:23 Dose: 1 each Documented by: - Objective Vital Signs: Vital Signs Temperature 98.5 F 04/28/20 13:58 Pulse Rate 72 04/28/20 13:58 Respiratory Rate 20 04/28/20 13:58 Blood Pressure 131/74 04/28/20 13:58 O2 Sat by Pulse Oximetry (%) 98 04/28/20 13:58 Labs: CBC, BMP 04/28/20 06:45 04/28/20 06:45 INR, PTT INR 0.92 (0.83-1.09) 04/23/20 19:30 Assessment/Plan HTN, HIV disease (nonadherent with medications), Polysubstance abuse (opiate use, heroin use, cocaine, alcohol) and Tobacco use, anxiety/depression, sent from [facility] because a murmur was heard on physical examination. On the floor, no significant heart murmur was appreciated. ECHO: Normal LVEF; abnormal diastolic compliance; mild TR; trace MR; no significant valvular pathology. TNI < 0.02 x 2. Acute/chronic leukopenia Plan DVT plx cardiac brown stable Treatment as per ID (HIV) and detox protocol; psychological counseling for anxiety/depression and substance abuse would be of benefit. F/u BP serially (occasionally elevated). Avoid beta blockers (active cocaine abuse). F/u etiology of leukopenia
[2020-04-29] MEDS ORDERED: LORazepam 0.5 MG TABLET PO ONE ×2 (05:00)
[2020-04-29] MEDS: BUPRENORPHINE/NALOXONE 8 MG/2 MG FILM PACKET SL SCH (06:01)
[2020-04-29] MEDS: HEPARIN NA (PORCINE) 5,000 UNITS/ML 1ML VIAL SQ SCH (06:02)
[2020-04-29] MEDS ORDERED: ATOVAQUONE 750 MG/5 ML (UNIT-DOSE PACKAGING) PO SCH (08:00)
[2020-04-29] MEDS ORDERED: PT OWN MED DRAWER 7, Y5N ONE ×2 (08:10→09:13)
[2020-04-29 10:42] VITALS: BP 126/86; PULSE 69; TEMP 98.5
--- NOTE | 2020-04-29 10:44 | CON.PSY ---
Psychiatry Consult Chief Complaint: 49 Year old male trans [id number] from [facility].. long history of Opiate abuse.. has anxiety. on Suboxone.. patient denies any depression or suicidal ideas. or palns. - Previous Psychiatric Treatment Outpatient: None Inpatient: None - Previous Substance Abuse Treatment Outpatient: Less than 6 mos ago Inpatient: One prior admission - Reason for Previous Treatment Reason for Previous Treatment: Heroin or Other Narcotics - Current Medications Current Medications: Active Medications Atovaquone (Mepron -) 1,500 mg PO DAILY@0800 [facility] Last Admin: 04/29/20 09:17 Dose: 1,500 mg Documented by: Buprenorphine/Naloxone (Suboxone 8 Mg/2 Mg Film Packet) 1 each SL TID [facility] Last Admin: 04/29/20 06:01 Dose: 1 each Documented by: Heparin Sodium (Porcine) (Heparin -) 5,000 unit SQ TID [facility] Last Admin: 04/29/20 06:02 Dose: Not Given Documented by: - Allergies Allergies: Allergies Allergy/AdvReac Type Severity Reaction Status Date / Time lactose Allergy Intermediate Verified 04/23/20 09:58 - Current Living Status Usual Living Arrangement: Alone - Current Mental Status Evaluation Appearance: Disheveled Attitude: Guarded - Affect Affect: Full Range Appropriateness: Appropriate to Content - Mood Mood: Euthymic - Speech/Language Expressive: Coherent - Psychomotor Activity Psychomotor Activity: Normal - Thought Process Thought Process: Intact - Thought Content Hallucinations: Absent Delusions: Absent - Self Perception Self Perception: No Impairment - Cognition Attention: Alert Orientation: Time Memory, Immediate Recall: Intact Memory, Short Term: 3/3 Memory, Remote with Promptin/3 - Concentration Serial Sevens Intact: No Simple Calculations Intact: Yes - Abstraction Proverb Interpretation: Intact Judgement: Minimally Impaired - Insight Insight: Intact - Impulse Control Impulse Control: Good Control - Suicidal Ideation Suicidal Ideation: No - Homicidal Ideation Homicidal Ideation: No Assessment/Plan 1) No clinical evidence of Major Depressive Disorder. 3) No psych meds needed. 4) Discharge when medically stable.
--- NOTE | 2020-04-29 14:43 | HOSP ---
Subjective - Review of Symptoms Events since last encounter: Patient was seen and examined. Was discharged yesterday by Dr Pichardo , was waiting on a bed at rehab. Bed was available today , left to rehab today. Vital Signs Temperature 98.5 F 04/29/20 08:05 Pulse Rate 69 04/29/20 08:05 Respiratory Rate 20 04/29/20 08:05 Blood Pressure 126/86 04/29/20 08:05 O2 Sat by Pulse Oximetry (%) 98 04/29/20 08:05 pE: lungs cTA BL CVS: S1S2 + abdomen: soft, NT CBCD WBC 2.4 K/mm3 (4.0-10.0) L 04/28/20 06:45 RBC 4.65 M/mm3 (4.00-5.60) 04/28/20 06:45 Hgb 12.9 GM/dL (11.7-16.9) 04/28/20 06:45 Hct 40.5 % (35.4-49) 04/28/20 06:45 MCV 87.2 fl (80-96) 04/28/20 06:45 MCHC 31.9 g/dl (32.0-35.9) L 04/28/20 06:45 RDW 13.8 % (11.9-15.9) 04/28/20 06:45 Plt Count 202 K/MM3 (134-434) 04/28/20 06:45 MPV 8.6 fl (7.5-11.1) 04/28/20 06:45 CMP Sodium 138 mmol/L (136-145) 04/28/20 06:45 Potassium 4.3 mmol/L (3.5-5.1) 04/28/20 06:45 Chloride 107 mmol/L (98-107) 04/28/20 06:45 Carbon Dioxide 28 mmol/L (21-32) 04/28/20 06:45 Anion Gap 3 MMOL/L (8-16) L 04/28/20 06:45 BUN 14.5 mg/dL (7-18) 04/28/20 06:45 Creatinine 0.9 mg/dL (0.55-1.3) 04/28/20 06:45 Random Glucose 91 mg/dL (74-106) 04/28/20 06:45 Calcium 8.9 mg/dL (8.5-10.1) 04/28/20 06:45 Total Bilirubin 0.4 mg/dL (0.2-1) 04/28/20 06:45 AST 20 U/L (15-37) 04/28/20 06:45 ALT 33 U/L (13-61) 04/28/20 06:45 Alkaline Phosphatase 51 U/L (45-117) 04/28/20 06:45 Total Protein 7.5 g/dl (6.4-8.2) 04/28/20 06:45 Albumin 3.2 g/dl (3.4-5.0) L 04/28/20 06:45 CARDIAC ENZYMES Creatine Kinase 190 U/L (26-308) 04/23/20 15:00 Troponin I < 0.02 ng/ml (0.00-0.05) 04/23/20 17:32 Home Medications Medication Instructions Recorded RX: Elviteg/Cob/Emtri/Tenof Alafen 1 each PO DAILY 05/20/17 [Genvoya (Non-Formulary)] RX: Buprenorphine/Naloxone 1 each SL TID 04/23/20 [Suboxone 8Mg/2Mg Sl Film -] RX: Atovaquone [Mepron Oral 1,500 mg PO DAILY@0800 [facility] 04/29/20 Solution -] Assessment and plan: #Polysubstance dependency: oN suboxone continue at the rehab. #HIV with CD4 137,seen by ID , was recommended to follow up with His clinic in [place] and to continue with genvoya and mepron 1500mg daily, as per ID g6pd status unknown and he is too leukopenic for bactrim at this time , continue for PCP Px with Mepron #Eosinophilia- no rash- should be worked up as outpt as well- no diarrhea- would send strongyloides antibody and stool ova and parasites-may need hematology monica luation as outpt dc patient to rehab Physical Examination Vital Signs: Vital Signs Temperature 98.5 F 04/29/20 08:05 Pulse Rate 69 04/29/20 08:05 Respiratory Rate 20 04/29/20 08:05 Blood Pressure 126/86 04/29/20 08:05 O2 Sat by Pulse Oximetry (%) 98 04/29/20 08:05 Labs: CBC, BMP 04/28/20 06:45 04/28/20 06:45
--- NOTE | 2020-04-29 18:24 | PN ---
Progress Note, Physician History of Present Illness: 49 year old man with a PMH of HTN, HIV disease (nonadherent with medications), Polysubstance abuse (opiate use, heroin use, cocaine, alcohol) and Tobacco use sent from [facility] because a murmur was heard on physical examination. The patient was uncooperative to questioning. He reports that the last time he used cocaine and heroin was yesterday. He denies trauma, and states that he takes the heroin and cocaine by nose. Also takes Suboxone - last use 2 days ago. Denies ever having delirium tremens or a seizure when withdrawing. He admits to diarrhea. He also reports that he has been told he has a murmur his entire life. Patient denies chest pain, shortness of breath, abdominal pain, headache, palpitations, dizziness, fever, chills, nausea, vomiting, constipation, dysuria, frequency, urgency, melena, hematochezia or hematuria. No sick contacts or recent travels. Family history is unremarkable. - Objective Vital Signs: Vital Signs Temperature 98.5 F 04/29/20 08:05 Pulse Rate 69 04/29/20 08:05 Respiratory Rate 20 04/29/20 08:05 Blood Pressure 126/86 04/29/20 08:05 O2 Sat by Pulse Oximetry (%) 98 04/29/20 08:05 Eyes: Yes: WNL, Conjunctiva Clear, EOM Intact HENT: Yes: WNL, Atraumatic, Normocephalic Neck: Yes: WNL, Supple, Trachea Midline Cardiovascular: Yes: WNL, Regular Rate and Rhythm Respiratory: Yes: WNL, Regular, CTA Bilaterally Gastrointestinal: Yes: WNL, Normal Bowel Sounds Genitourinary: Yes: WNL Musculoskeletal: Yes: WNL Extremities: Yes: WNL Edema: No Integumentary: Yes: WNL Neurological: Yes: WNL, Alert, Oriented ...Motor Strength: WNL Labs: CBC, BMP 04/28/20 06:45 04/28/20 06:45 INR, PTT INR 0.92 (0.83-1.09) 04/23/20 19:30 Problem List - Problems (1) Alcohol dependence Code(s): F10.20 - ALCOHOL DEPENDENCE, UNCOMPLICATED Qualifiers: Substance use status: uncomplicated Qualified Code(s): F10.20 - Alcohol dependence, uncomplicated (2) Opiate dependence Code(s): F11.20 - OPIOID DEPENDENCE, UNCOMPLICATED Qualifiers: Substance use status: uncomplicated Qualified Code(s): F11.20 - Opioid dependence, uncomplicated (3) Cocaine dependence, uncomplicated Code(s): F14.20 - COCAINE DEPENDENCE, UNCOMPLICATED (4) Alcohol dependence with uncomplicated withdrawal Code(s): F10.230 - ALCOHOL DEPENDENCE WITH WITHDRAWAL, UNCOMPLICATED (5) Anxiety Code(s): F41.9 - ANXIETY DISORDER, UNSPECIFIED (6) Nicotine dependence Code(s): F17.200 - NICOTINE DEPENDENCE, UNSPECIFIED, UNCOMPLICATED Qualifiers: Nicotine product type: cigarettes Substance use status: in withdrawal Jose lified Code(s): F17.213 - Nicotine dependence, cigarettes, with withdrawal (7) Opioid dependence with withdrawal Code(s): F11.23 - OPIOID DEPENDENCE WITH WITHDRAWAL (8) Sedative, hypnotic or anxiolytic dependence with withdrawal, uncomplicated Code(s): F13.230 - SEDATV/HYP/ANXIOLYTC DEPENDENCE W WITHDRAWAL, UNCOMPLICATED (9) Weight loss Code(s): R63.4 - ABNORMAL WEIGHT LOSS (10) Anxiety and depression Code(s): F41.9 - ANXIETY DISORDER, UNSPECIFIED; F32.9 - MAJOR DEPRESSIVE DISORDER, SINGLE EPISODE, UNSPECIFIED (11) Benzodiazepine dependence Code(s): F13.20 - SEDATIVE, HYPNOTIC OR ANXIOLYTIC DEPENDENCE, UNCOMPLICATED (12) Cocaine dependence Code(s): F14.20 - COCAINE DEPENDENCE, UNCOMPLICATED Qualifiers: Substance use status: uncomplicated Qualified Code(s): F14.20 - Cocaine dependence, uncomplicated (13) Crack cocaine use Code(s): F14.90 - COCAINE USE, UNSPECIFIED, UNCOMPLICATED (14) HIV (human immunodeficiency virus infection) Code(s): Z21 - ASYMPTOMATIC HUMAN IMMUNODEFICIENCY VIRUS INFECTION STATUS Qualifiers: HIV symptom status: unspecified Qualified Code(s): B20 - Human immunodeficiency virus [HIV] disease (15) Non-compliance Code(s): Z91.19 - PATIENT'S NONCOMPLIANCE W OTH MEDICAL TREATMENT AND REGIMEN (16) Depression (emotion) Code(s): F32.9 - MAJOR DEPRESSIVE DISORDER, SINGLE EPISODE, UNSPECIFIED Qualifiers: Depression Type: dysthymia Qualified Code(s): F34.1 - Dysthymic disorder (17) Substance induced mood disorder Code(s): F19.94 - OTH PSYCHOACTIVE SUBSTANCE USE, UNSP W MOOD DISORDER Assessment/Plan HTN, HIV disease (nonadherent with medications), Polysubstance abuse (opiate use, heroin use, cocaine, alcohol) and Tobacco use, anxiety/depression, sent from [facility] because a murmur was heard on physical examination. On the floor, no significant heart murmur was appreciated. ECHO: Normal LVEF; abnormal diastolic compliance; mild TR; trace MR; no significant valvular pathology. TNI < 0.02 x 2. Acute/chronic leukopenia Plan DVT plx cardiac brown stable Treatment as per ID (HIV) and detox protocol; psychological counseling for anxiety/depression and substance abuse would be of benefit. F/u BP serially (occasionally elevated). Avoid beta blockers (active cocaine abuse). F/u etiology of leukopenia
== END 2020-04-29 13:03 | disposition short-term general hospital (02) | DRG 200 ==
LOC: JER 11:47 → INTOOBSV 19:04 → JERBED 19:04 → J4W 04-24 18:16 → OBSVTOIN 04-26 14:15 → J8W 04-26 17:32
PROVIDERS: ADMIT Internal Medicine; ATTEND Internal Medicine
PROC: HZ2ZZZZ Detoxification Services for Substance Abuse Treatment (ICD-10-PCS; principal; 2020-04-23)
DX: R01.1 Cardiac murmur, unspecified (principal); F10.230 Alcohol dependence with withdrawal, uncomplicated; I10 Essential (primary) hypertension; F14.20 Cocaine dependence, uncomplicated; F17.210 Nicotine dependence, cigarettes, uncomplicated; E88.09 Other disorders of plasma-protein metabolism, not elsewhere classified; D64.9 Anemia, unspecified; A54.9 Gonococcal infection, unspecified; R64 Cachexia; D72.1 Eosinophilia; E46 Unspecified protein-calorie malnutrition; F11.20 Opioid dependence, uncomplicated; F41.8 Other specified anxiety disorders; F34.1 Dysthymic disorder; Z21 Asymptomatic human immunodeficiency virus [HIV] infection status; F13.230 Sedative, hypnotic or anxiolytic dependence with withdrawal, uncomplicated; D72.819 Decreased white blood cell count, unspecified; Z91.14 Patient's other noncompliance with medication regimen; Z68.27 Body mass index [BMI] 27.0-27.9, adult
CPT/HCPCS: 36415; 71045-TC-FY; 80048; 80053; 82550; 82553; 83735; 84100; 84484; 85025; 85027; 85610; 85730; 86359; 86360; 93005; 93010; 93306-TC; 99285-25; G0378; J1644

== ENCOUNTER 2020-10-11 15:44 | Inpatient (IN) | payer OTHER ==
[2020-10-11 18:32] VITALS: BMI 19.2
[2020-10-11] MEDS ORDERED: MAGNESIUM CITRATE 300 ML BOTTLE PO PRN (19:12)
[2020-10-11] MEDS ORDERED: NICOTINE POLACRILEX 2 MG GUM BUC PRN (19:12)
[2020-10-11] MEDS ORDERED: ACETAMINOPHEN 325 MG TABLET (FP) PO PRN ×2 (19:12)
[2020-10-11] MEDS ORDERED: METHOCARBAMOL 500 MG TABLET PO PRN (19:12)
[2020-10-11] MEDS ORDERED: MAG HYDROX/AL HYDROX/SIMETH 30 ML UNIT-DOSE CUP PO PRN (19:12)
[2020-10-11] MEDS ORDERED: IBUPROFEN 400 MG TABLET (FP) PO PRN (19:12)
[2020-10-11] MEDS ORDERED: BISMUTH SUBSALICYLATE 524 MG/30 ML UD PO PRN (19:12)
[2020-10-11] MEDS ORDERED: ONDANSETRON *ODT* 4 MG TABLET SL PRN (19:12)
[2020-10-11] MEDS ORDERED: MENTHOL/PHENOL 1 EACH UD MM PRN (19:12)
[2020-10-11] MEDS ORDERED: METHADONE HCL 10 MG TABLET (FOR DETOX USE ONLY) PO ONE (19:12)
[2020-10-11] MEDS ORDERED: MAGNESIUM HYDROX 2400MG/30ML ORAL SUSPENSION 30 ML CUP PO PRN (19:12)
[2020-10-11] MEDS: cloNIDine HCL 0.1 MG TABLET PO PRN (21:03)
[2020-10-11] MEDS: TOLNAFTATE 1% CREAM 15 GM TUBE TP SCH (22:22)
[2020-10-11] MEDS: THIAMINE HCL 100 MG TABLET (FP) PO SCH (22:23)
[2020-10-11] MEDS: MELATONIN 5 MG TABLETS PO SCH (22:23)
[2020-10-11] MEDS: hydrOXYzine PAMOATE 25 MG CAPSULE (FP) PO SCH (22:23)
[2020-10-12] MEDS: CEPHALEXIN MONOHYDRATE 250 MG CAPSULE (FP) PO SCH ×5 (00:01→23:37)
[2020-10-12] MEDS: hydrOXYzine PAMOATE 25 MG CAPSULE (FP) PO SCH ×5 (06:11→22:37)
[2020-10-12] MEDS ORDERED: METHADONE HCL 10 MG TABLET (FOR DETOX USE ONLY) ONE (09:03)
[2020-10-12] MEDS ORDERED: METHADONE HCL 5 MG TABLET (FOR DETOX USE ONLY) ONE (09:03)
[2020-10-12] MEDS ORDERED: METHADONE (DETOX) 20 MG, METHADONE (DETOX) 5 MG PO ONE (10:00)
[2020-10-12] MEDS: NICOTINE 14 MG/24 HOURS TOPICAL PATCH TD SCH (11:29)
[2020-10-12] MEDS: PRENATAL VITAMINS W/ FOLIC ACID TABLET (FP) PO SCH (11:30)
[2020-10-12] MEDS: TOLNAFTATE 1% CREAM 15 GM TUBE TP SCH ×2 (11:30→22:37)
[2020-10-12] MEDS: MELATONIN 5 MG TABLETS PO SCH (22:37)
[2020-10-12] MEDS: THIAMINE HCL 100 MG TABLET (FP) PO SCH (22:38)
[2020-10-13] MEDS: hydrOXYzine PAMOATE 25 MG CAPSULE (FP) PO SCH ×5 (06:23→21:06)
[2020-10-13] MEDS: CEPHALEXIN MONOHYDRATE 250 MG CAPSULE (FP) PO SCH ×4 (06:23→23:21)
[2020-10-13] MEDS: PRENATAL VITAMINS W/ FOLIC ACID TABLET (FP) PO SCH (09:53)
[2020-10-13] MEDS: TOLNAFTATE 1% CREAM 15 GM TUBE TP SCH ×2 (09:55→21:06)
[2020-10-13] MEDS: NICOTINE 14 MG/24 HOURS TOPICAL PATCH TD SCH (09:55)
[2020-10-13] MEDS ORDERED: METHADONE HCL 10 MG TABLET (FOR DETOX USE ONLY) PO ONE (10:00)
[2020-10-13] MEDS: cloNIDine HCL 0.1 MG TABLET PO PRN ×2 (13:37→21:05)
[2020-10-13] MEDS: THIAMINE HCL 100 MG TABLET (FP) PO SCH (21:06)
[2020-10-13] MEDS: MELATONIN 5 MG TABLETS PO SCH (21:06)
[2020-10-14] MEDS: hydrOXYzine PAMOATE 25 MG CAPSULE (FP) PO SCH ×5 (05:08→22:42)
[2020-10-14] MEDS: CEPHALEXIN MONOHYDRATE 250 MG CAPSULE (FP) PO SCH ×4 (05:09→23:01)
[2020-10-14] MEDS ORDERED: METHADONE HCL 10 MG TABLET (FOR DETOX USE ONLY) ONE (08:35)
[2020-10-14] MEDS ORDERED: METHADONE HCL 5 MG TABLET (FOR DETOX USE ONLY) ONE (08:36)
[2020-10-14] MEDS: NICOTINE 14 MG/24 HOURS TOPICAL PATCH TD SCH (09:25)
[2020-10-14] MEDS: PRENATAL VITAMINS W/ FOLIC ACID TABLET (FP) PO SCH (09:25)
[2020-10-14] MEDS: TOLNAFTATE 1% CREAM 15 GM TUBE TP SCH ×2 (09:26→22:42)
[2020-10-14] MEDS ORDERED: METHADONE (DETOX) 10 MG, METHADONE (DETOX) 5 MG PO ONE (10:00)
[2020-10-14 12:11] LABS: POTASSIUM 4.3 mmol/L (3.5-5.1)
[2020-10-14 12:14] LABS: ALBUMIN 2.8 g/dl (3.4-5.0); CALCIUM 8.4 mg/dL (8.5-10.1)
[2020-10-14 12:15] LABS: BASO % 1.2 % (0-2.0); EOS % 13.8 % (0-4.5); HEMATOCRIT 40.9 % (35.4-49); HEMOGLOBIN 12.8 GM/dL (11.7-16.9); MCH 28.3 pg (25.7-33.7); MCHC 31.2 g/dl (32.0-35.9); MEAN CELL VOLUME 90.6 fl (80-96); MEAN PLT VOLUME 8.8 fl (7.5-11.1); MONO % 21.7 % (3.8-10.2); NEUT % 37.3 % (42.8-82.8); PLATELET COUNT 244 K/MM3 (134-434); RBC 4.51 M/mm3 (4.00-5.60); RDW 14.9 % (11.9-15.9); WHITE BLOOD COUNT 2.3 K/mm3 (4.0-10.0)
[2020-10-14 12:17] LABS: CREATININE 0.9 mg/dL (0.55-1.3)
[2020-10-14 12:19] LABS: BILIRUBIN,TOTAL 0.5 mg/dL (0.2-1); TOT PROT 6.7 g/dl (6.4-8.2)
[2020-10-14] MEDS ORDERED: cloNIDine HCL 0.1 MG TABLET PO PRN (21:41)
[2020-10-14] MEDS: MELATONIN 5 MG TABLETS PO SCH (22:42)
[2020-10-14] MEDS: THIAMINE HCL 100 MG TABLET (FP) PO SCH (22:42)
[2020-10-15] MEDS: CEPHALEXIN MONOHYDRATE 250 MG CAPSULE (FP) PO SCH ×2 (06:27→12:55)
[2020-10-15] MEDS: hydrOXYzine PAMOATE 25 MG CAPSULE (FP) PO SCH ×3 (06:27→14:16)
[2020-10-15] MEDS: NICOTINE 14 MG/24 HOURS TOPICAL PATCH TD SCH (09:22)
[2020-10-15] MEDS: PRENATAL VITAMINS W/ FOLIC ACID TABLET (FP) PO SCH (09:22)
[2020-10-15] MEDS: TOLNAFTATE 1% CREAM 15 GM TUBE TP SCH (09:22)
[2020-10-15] MEDS ORDERED: METHADONE HCL 10 MG TABLET (FOR DETOX USE ONLY) PO ONE (10:00)
[2020-10-15 13:08] VITALS: BP 128/75; PULSE 77; TEMP 97.8
[2020-10-15] MEDS ORDERED: ELVITEG/COB/EMTRI/TENOF (GENVOYA) TABLET (NF) PO SCH (13:30)
[2020-10-16] MEDS ORDERED: METHADONE HCL 5 MG TABLET (FOR DETOX USE ONLY) PO ONE (06:00)
== END 2020-10-15 13:56 | disposition home or self-care (01) | DRG 773 ==
LOC: YASAS 15:44 → Y3N 18:37
PROVIDERS: ADMIT Allergy & Immunology; ATTEND Allergy & Immunology
PROC: HZ2ZZZZ Detoxification Services for Substance Abuse Treatment (ICD-10-PCS; principal; 2020-10-11)
DX: F11.23 Opioid dependence with withdrawal (principal); F14.20 Cocaine dependence, uncomplicated; F10.20 Alcohol dependence, uncomplicated; F13.20 Sedative, hypnotic or anxiolytic dependence, uncomplicated; F17.210 Nicotine dependence, cigarettes, uncomplicated; F32.9 Major depressive disorder, single episode, unspecified; Z21 Asymptomatic human immunodeficiency virus [HIV] infection status; L03.115 Cellulitis of right lower limb; I10 Essential (primary) hypertension; B35.3 Tinea pedis; R63.4 Abnormal weight loss; Z68.1 Body mass index [BMI] 19.9 or less, adult; Z91.011 Allergy to milk products; Z91.19 Patient's noncompliance with other medical treatment and regimen
CPT/HCPCS: 36415; 80053; 85025; 86780; C9803; J0735; U0003

== ENCOUNTER 2020-11-06 15:22 | Inpatient (IN) | payer OTHER ==
[2020-11-06 22:22] VITALS: BMI 21.2
[2020-11-07] MEDS ORDERED: MAG HYDROX/AL HYDROX/SIMETH 30 ML UNIT-DOSE CUP PO PRN (00:39)
[2020-11-07] MEDS ORDERED: IBUPROFEN 400 MG TABLET (FP) PO PRN (00:39)
[2020-11-07] MEDS ORDERED: MAGNESIUM HYDROX 2400MG/30ML ORAL SUSPENSION 30 ML CUP PO PRN (00:39)
[2020-11-07] MEDS ORDERED: METHADONE HCL 10 MG TABLET (FOR DETOX USE ONLY) PO ONE (00:39)
[2020-11-07] MEDS ORDERED: ONDANSETRON *ODT* 4 MG TABLET SL PRN (00:39)
[2020-11-07] MEDS ORDERED: ACETAMINOPHEN 325 MG TABLET (FP) PO PRN ×2 (00:39)
[2020-11-07] MEDS ORDERED: MENTHOL/PHENOL 1 EACH UD MM PRN (00:39)
[2020-11-07] MEDS ORDERED: BISMUTH SUBSALICYLATE 524 MG/30 ML UD PO PRN (00:39)
[2020-11-07] MEDS ORDERED: cloNIDine HCL 0.1 MG TABLET PO PRN (00:39)
[2020-11-07] MEDS ORDERED: NICOTINE POLACRILEX 2 MG GUM BUC PRN (00:39)
[2020-11-07] MEDS ORDERED: MAGNESIUM CITRATE 300 ML BOTTLE PO PRN (00:39)
[2020-11-07] MEDS ORDERED: METHADONE HCL 10 MG TABLET (FOR DETOX USE ONLY) ONE (01:07)
[2020-11-07] MEDS ORDERED: CEPHALEXIN MONOHYDRATE 250 MG CAPSULE (FP) PO SCH (06:00)
[2020-11-07] MEDS: CEPHALEXIN MONOHYDRATE 500 MG PO SCH ×2 (12:38→22:52)
[2020-11-07] MEDS: NICOTINE 14 MG/24 HOURS TOPICAL PATCH TD SCH (12:39)
[2020-11-07] MEDS: ELVITEG/COB/EMTRI/TENOF (GENVOYA) TABLET (NF) PO SCH (12:39)
[2020-11-07] MEDS: PATIENT'S OWN MEDICATION (NON-FORMULARY) (Sulfamethoxazole/Trimethoprim [Sulfamethoxazole- PO SCH ×2 (12:39→22:52)
[2020-11-07] MEDS: PRENATAL VITAMINS W/ FOLIC ACID TABLET (FP) PO SCH (12:39)
[2020-11-07] MEDS: MELATONIN 5 MG TABLETS PO SCH (22:52)
[2020-11-07] MEDS: THIAMINE HCL 100 MG TABLET (FP) PO SCH (22:52)
[2020-11-08] MEDS: METHOCARBAMOL 500 MG TABLET PO PRN ×2 (01:10→09:59)
[2020-11-08] MEDS: ATOVAQUONE 750 MG/5 ML (UNIT-DOSE PACKAGING) PO SCH (08:05)
[2020-11-08] MEDS: ELVITEG/COB/EMTRI/TENOF (GENVOYA) TABLET (NF) PO SCH (08:05)
[2020-11-08] MEDS ORDERED: METHADONE HCL 10 MG TABLET (FOR DETOX USE ONLY) ONE (09:35)
[2020-11-08] MEDS ORDERED: METHADONE HCL 5 MG TABLET (FOR DETOX USE ONLY) ONE (09:35)
[2020-11-08] MEDS: CEPHALEXIN MONOHYDRATE 500 MG PO SCH ×2 (09:58→22:44)
[2020-11-08] MEDS: PRENATAL VITAMINS W/ FOLIC ACID TABLET (FP) PO SCH (09:58)
[2020-11-08] MEDS: PATIENT'S OWN MEDICATION (NON-FORMULARY) (Sulfamethoxazole/Trimethoprim [Sulfamethoxazole- PO SCH ×2 (09:58→22:45)
[2020-11-08] MEDS: NICOTINE 14 MG/24 HOURS TOPICAL PATCH TD SCH (09:59)
[2020-11-08] MEDS ORDERED: METHADONE (DETOX) 20 MG, METHADONE (DETOX) 5 MG PO ONE (10:00)
[2020-11-08 10:47] LABS: POTASSIUM 3.7 mmol/L (3.5-5.1)
[2020-11-08 10:48] LABS: HEMATOCRIT 34.1 % (35.4-49); MCH 28.9 pg (25.7-33.7); MCHC 32.4 g/dl (32.0-35.9); MEAN CELL VOLUME 89.3 fl (80-96); MEAN PLT VOLUME 8.8 fl (7.5-11.1); PLATELET COUNT 271 K/MM3 (134-434); RBC 3.82 M/mm3 (4.00-5.60); RDW 14.4 % (11.9-15.9); WHITE BLOOD COUNT 2.2 K/mm3 (4.0-10.0)
[2020-11-08 10:52] LABS: CALCIUM 8.8 mg/dL (8.5-10.1)
[2020-11-08 10:54] LABS: ALBUMIN 2.5 g/dl (3.4-5.0); BLOOD UREA NITROGEN 6.4 mg/dL (7-18)
[2020-11-08 10:58] LABS: TOT PROT 6.8 g/dl (6.4-8.2)
[2020-11-08 11:00] LABS: CREATININE 0.9 mg/dL (0.55-1.3)
[2020-11-08 11:01] LABS: BILIRUBIN,TOTAL 0.4 mg/dL (0.2-1)
[2020-11-08] MEDS: MELATONIN 5 MG TABLETS PO SCH (22:44)
[2020-11-08] MEDS: THIAMINE HCL 100 MG TABLET (FP) PO SCH (22:44)
[2020-11-09] MEDS: PATIENT'S OWN MEDICATION (NON-FORMULARY) (Sulfamethoxazole/Trimethoprim [Sulfamethoxazole- PO SCH ×2 (09:11→22:38)
[2020-11-09] MEDS: CEPHALEXIN MONOHYDRATE 500 MG PO SCH ×2 (09:11→22:38)
[2020-11-09] MEDS: PRENATAL VITAMINS W/ FOLIC ACID TABLET (FP) PO SCH (09:11)
[2020-11-09] MEDS: ELVITEG/COB/EMTRI/TENOF (GENVOYA) TABLET (NF) PO SCH (09:12)
[2020-11-09] MEDS: METHOCARBAMOL 500 MG TABLET PO PRN (09:13)
[2020-11-09] MEDS: ATOVAQUONE 750 MG/5 ML (UNIT-DOSE PACKAGING) PO SCH (09:14)
[2020-11-09] MEDS: NICOTINE 14 MG/24 HOURS TOPICAL PATCH TD SCH (09:14)
[2020-11-09] MEDS ORDERED: METHADONE HCL 10 MG TABLET (FOR DETOX USE ONLY) PO ONE (10:00)
[2020-11-09] MEDS: THIAMINE HCL 100 MG TABLET (FP) PO SCH (22:38)
[2020-11-09] MEDS: MELATONIN 5 MG TABLETS PO SCH (22:38)
[2020-11-10] MEDS ORDERED: METHADONE HCL 5 MG TABLET (FOR DETOX USE ONLY) ONE (08:30)
[2020-11-10] MEDS ORDERED: METHADONE HCL 10 MG TABLET (FOR DETOX USE ONLY) ONE (08:30)
[2020-11-10] MEDS ORDERED: METHADONE (DETOX) 10 MG, METHADONE (DETOX) 5 MG PO ONE (10:00)
[2020-11-10] MEDS: ELVITEG/COB/EMTRI/TENOF (GENVOYA) TABLET (NF) PO SCH (10:03)
[2020-11-10] MEDS: CEPHALEXIN MONOHYDRATE 500 MG PO SCH ×2 (10:03→22:32)
[2020-11-10] MEDS: PATIENT'S OWN MEDICATION (NON-FORMULARY) (Sulfamethoxazole/Trimethoprim [Sulfamethoxazole- PO SCH ×2 (10:03→22:32)
[2020-11-10] MEDS: PRENATAL VITAMINS W/ FOLIC ACID TABLET (FP) PO SCH (10:03)
[2020-11-10] MEDS: NICOTINE 14 MG/24 HOURS TOPICAL PATCH TD SCH (10:05)
[2020-11-10] MEDS: ATOVAQUONE 750 MG/5 ML (UNIT-DOSE PACKAGING) PO SCH (10:05)
[2020-11-10] MEDS: THIAMINE HCL 100 MG TABLET (FP) PO SCH (22:31)
[2020-11-10] MEDS: MELATONIN 5 MG TABLETS PO SCH (22:32)
[2020-11-11 07:46] VITALS: BP 147/82; PULSE 64; TEMP 96.9
[2020-11-11] MEDS: ATOVAQUONE 750 MG/5 ML (UNIT-DOSE PACKAGING) PO SCH (08:00)
[2020-11-11] MEDS: ELVITEG/COB/EMTRI/TENOF (GENVOYA) TABLET (NF) PO SCH (08:01)
[2020-11-11] MEDS ORDERED: METHADONE HCL 10 MG TABLET (FOR DETOX USE ONLY) PO ONE (10:00)
[2020-11-11] MEDS: CEPHALEXIN MONOHYDRATE 500 MG PO SCH (10:17)
[2020-11-11] MEDS: PRENATAL VITAMINS W/ FOLIC ACID TABLET (FP) PO SCH (10:17)
[2020-11-11] MEDS: PATIENT'S OWN MEDICATION (NON-FORMULARY) (Sulfamethoxazole/Trimethoprim [Sulfamethoxazole- PO SCH (10:17)
[2020-11-11] MEDS: METHOCARBAMOL 500 MG TABLET PO PRN (10:19)
[2020-11-11] MEDS: NICOTINE 14 MG/24 HOURS TOPICAL PATCH TD SCH (10:19)
[2020-11-12] MEDS ORDERED: METHADONE HCL 5 MG TABLET (FOR DETOX USE ONLY) PO ONE (06:00)
== END 2020-11-11 11:48 | disposition home or self-care (01) | DRG 773 ==
LOC: YASAS 15:22 → Y3N 11-07 09:47
PROVIDERS: ADMIT Allergy & Immunology; ATTEND Allergy & Immunology
PROC: HZ2ZZZZ Detoxification Services for Substance Abuse Treatment (ICD-10-PCS; principal; 2020-11-07)
DX: F11.23 Opioid dependence with withdrawal (principal); F14.20 Cocaine dependence, uncomplicated; F17.210 Nicotine dependence, cigarettes, uncomplicated; F34.1 Dysthymic disorder; F41.8 Other specified anxiety disorders; F32.9 Major depressive disorder, single episode, unspecified; Z21 Asymptomatic human immunodeficiency virus [HIV] infection status; D72.819 Decreased white blood cell count, unspecified; D50.9 Iron deficiency anemia, unspecified; J45.20 Mild intermittent asthma, uncomplicated; L03.115 Cellulitis of right lower limb; R01.1 Cardiac murmur, unspecified; Z86.79 Personal history of other diseases of the circulatory system; Z86.19 Personal history of other infectious and parasitic diseases; Z91.011 Allergy to milk products; Z56.0 Unemployment, unspecified; Z59.0 Homelessness
CPT/HCPCS: 36415; 80053; 85027; 86780; 93005; 93010; C9803; J0735; U0003

== ENCOUNTER 2021-02-28 16:40 | Observation (INO) | payer OTHER ==
[2021-02-28 17:59] VITALS: BMI 19.2
[2021-02-28] MEDS ORDERED: NALOXONE HCL 0.4 MG/ML VIAL IM ONE (19:30)
[2021-02-28] MEDS ORDERED: SODIUM CHLORIDE 0.9% 500 ML INFUS.BAG IV ONE (19:36)
[2021-02-28] MEDS ORDERED: NALOXONE HCL 0.4 MG/ML VIAL ONE (19:38)
[2021-02-28 20:29] LABS: BASO % 0.4 % (0-2.0); EOS % 0.9 % (0-4.5); HEMOGLOBIN 13.3 GM/dL (11.7-16.9); LYMPH % 8.1 % (8-40); MCH 27.7 pg (25.7-33.7); MCHC 31.7 g/dl (32.0-35.9); MEAN CELL VOLUME 87.3 fl (80-96); MEAN PLT VOLUME 8.4 fl (7.5-11.1); MONO % 9.1 % (3.8-10.2); NEUT % 81.5 % (42.8-82.8); PLATELET COUNT 248 K/MM3 (134-434); RBC 4.81 M/mm3 (4.00-5.60); RDW 16.6 % (11.9-15.9); WHITE BLOOD COUNT 3.9 K/mm3 (4.0-10.0)
[2021-02-28 20:48] LABS: CHLORIDE 103 mmol/L (98-107); SODIUM 141 mmol/L (136-145)
[2021-02-28 20:50] LABS: CALCIUM 9.6 mg/dL (8.5-10.1)
[2021-02-28 20:51] LABS: ALBUMIN 3.5 g/dl (3.4-5.0); ANION GAP 7 MMOL/L (8-16); BLOOD UREA NITROGEN 13.3 mg/dL (7-18); CO2 31 mmol/L (21-32); GLUCOSE,RANDOM 85 mg/dL (74-106)
[2021-02-28 20:53] LABS: CREATININE 0.8 mg/dL (0.55-1.3)
[2021-02-28 20:54] LABS: SGOT/AST 36 U/L (15-37); SGPT/ALT 24 U/L (13-61)
[2021-02-28 20:55] LABS: BILIRUBIN,TOTAL 0.8 mg/dL (0.2-1); TOT PROT 8.7 g/dl (6.4-8.2)
[2021-02-28 20:56] LABS: ALK PHOS 62 U/L (45-117)
[2021-02-28 23:53] LABS: MAGNESIUM 2.1 mg/dL (1.8-2.4)
[2021-03-01] MEDS ORDERED: LORazepam 2 MG/ML SDV VIAL IVPUSH ONE (02:06)
[2021-03-01] MEDS ORDERED: LORazepam 2 MG/ML SDV VIAL ONE (02:08)
[2021-03-01] MEDS ORDERED: ONDANSETRON 4 MG/2 ML VIAL IVPUSH ONE (03:55)
[2021-03-01] MEDS ORDERED: ONDANSETRON 4 MG/2 ML VIAL ONE (04:14)
[2021-03-01] MEDS ORDERED: LOPERAMIDE HCL 2 MG CAPSULE PO PRN (05:27)
[2021-03-01] MEDS ORDERED: cloNIDine HCL 0.1 MG TABLET PO PRN (05:27)
[2021-03-01] MEDS ORDERED: LORazepam 1 MG TABLET PO PRN (05:29)
[2021-03-01] MEDS ORDERED: PROCHLORPERAZINE MALEATE 5 MG TABLET PO PRN (05:30)
[2021-03-01] MEDS ORDERED: ENOXAPARIN NA (PORCINE) 40 MG/0.4 ML DISP.SYRIN SQ ONE (09:47)
[2021-03-01] MEDS: ENOXAPARIN NA (PORCINE) 40 MG/0.4 ML DISP.SYRIN SQ SCH (09:49)
[2021-03-01 10:49] LABS: BASO % 0.2 % (0-2.0); EOS % 0.1 % (0-4.5); HEMATOCRIT 44.8 % (35.4-49); LYMPH % 11.8 % (8-40); MCH 27.5 pg (25.7-33.7); MCHC 31.2 g/dl (32.0-35.9); MEAN CELL VOLUME 88.2 fl (80-96); MEAN PLT VOLUME 8.5 fl (7.5-11.1); MONO % 10.6 % (3.8-10.2); NEUT % 77.3 % (42.8-82.8); PLATELET COUNT 236 K/MM3 (134-434); RBC 5.08 M/mm3 (4.00-5.60); RDW 17.2 % (11.9-15.9); WHITE BLOOD COUNT 4.3 K/mm3 (4.0-10.0)
[2021-03-01] MEDS: NICOTINE 14 MG/24 HOURS TOPICAL PATCH TD SCH (11:00)
[2021-03-01 11:05] LABS: ALBUMIN 3.1 g/dl (3.4-5.0); CALCIUM 9.3 mg/dL (8.5-10.1)
[2021-03-01 11:06] LABS: BLOOD UREA NITROGEN 12.2 mg/dL (7-18); MAGNESIUM 3.3 mg/dL (1.8-2.4)
[2021-03-01 11:09] LABS: CREATININE 0.8 mg/dL (0.55-1.3); PHOSPHOROUS 3.7 mg/dL (2.5-4.9)
[2021-03-01 11:10] LABS: BILIRUBIN,TOTAL 0.8 mg/dL (0.2-1); TOT PROT 7.8 g/dl (6.4-8.2)
[2021-03-02] MEDS: ENOXAPARIN NA (PORCINE) 40 MG/0.4 ML DISP.SYRIN SQ SCH (10:53)
[2021-03-02] MEDS: NICOTINE 14 MG/24 HOURS TOPICAL PATCH TD SCH (10:54)
[2021-03-03 06:40] VITALS: PULSE 67
[2021-03-03] MEDS: NICOTINE 14 MG/24 HOURS TOPICAL PATCH TD SCH (09:55)
[2021-03-03] MEDS: ENOXAPARIN NA (PORCINE) 40 MG/0.4 ML DISP.SYRIN SQ SCH (09:55)
[2021-03-03 11:13] VITALS: BP 141/79; TEMP 99.3
== END 2021-03-03 14:19 | disposition home or self-care (01) ==
LOC: JER 16:40 → JERBED 03-01 05:03 → INTOOBSV 03-01 05:03 → UNDOADMOB 03-01 05:03 → JERBED 03-01 05:04 → UNDOADMIN 03-01 05:04 → JERBED 03-01 11:25 → J8W 03-01 11:25 → J4W 03-01 14:23 → J8W 03-01 14:23 → J4W 03-03 09:31 → J8W 03-03 09:31 → JERBED 03-03 09:31
PROVIDERS: ADMIT Hospitalist; ATTEND Internal Medicine
PROC: 3E033NZ Introduction of Analgesics, Hypnotics, Sedatives into Peripheral Vein, Percutaneous Approach (ICD-10-PCS; principal; 2021-03-03)
PROC: 3E023GC Introduction of Other Therapeutic Substance into Muscle, Percutaneous Approach (ICD-10-PCS; 2021-03-03)
PROC: 3E033GC Introduction of Other Therapeutic Substance into Peripheral Vein, Percutaneous Approach (ICD-10-PCS; 2021-03-03)
PROC: 3E0337Z Introduction of Electrolytic and Water Balance Substance into Peripheral Vein, Percutaneous Approach (ICD-10-PCS; 2021-03-03)
DX: T40.1X1A Poisoning by heroin, accidental (unintentional), initial encounter (principal); F11.13 Opioid abuse with withdrawal; R19.7 Diarrhea, unspecified; R45.1 Restlessness and agitation; R94.31 Abnormal electrocardiogram [ECG] [EKG]; I10 Essential (primary) hypertension; B20 Human immunodeficiency virus [HIV] disease; G93.41 Metabolic encephalopathy; D64.89 Other specified anemias; Z91.011 Allergy to milk products; F41.9 Anxiety disorder, unspecified; Z29.9 Encounter for prophylactic measures, unspecified; R11.2 Nausea with vomiting, unspecified
CPT/HCPCS: 36415; 70450-TC; 71045-TC-FY; 80053; 80307; 83735; 84100; 84484; 85025; 93005; 93010; 96361; 96372; 96374; 96375; 99285-25; C9803; G0378; U0003; U0005